=== PATIENT | male | born 1990 | race African-American/Black ===

== ENCOUNTER 2016-04-20 08:06 | Inpatient (IN) | payer OTHER ==
[~2016-04-20] VITALS: Ht 172.7 cm; Wt 95.3 kg
[~2016-04-20 08:06] MED LIST: ACETAMINOPHEN325 M1 PO; ACYCLOVIR 800800 MG PO; COMPAZINE5 M1 PO; ERYTHROMYCIN250 MG PO; ERYTHROMYCIN500 MG PO; HUMALOG100 UNIT/1; HUMALOG100 UNIT/1 SUBQ; HYDROCODON-ACE1 EAC7 PO; HYDROCODONE-AP1 EAC6 PO; IBUPROFEN 800800 M1 PO; KLOR-CON 1010 MEQ PO; LANTUS SC; LANTUS SUBQ; LIDOCAINE VISC100 ML MM; METOCLOPRAMID5 MG/ML PO; NEOSPORIN OINTM15 GM TP; NORCO 5-325 TA1 EACH PO; NOVOLOG100 UNIT/1 SUBQ; ONDANSETRON HCL4 M1 PO; ONDANSETRON HCL4 M2 PO; OXYCODON-ACETA1 EAC1 PO; PANTOPRAZOLE SO40 M1 PO; PEPCID PO; PHENERGAN 25 MG25 M1 PO; PHENERGAN12.5 M2 PO; PHENERGAN25 M1 RC; PHENERGAN50 MG RC; POTASSIUM20 PO; PREDNISONE50 MG PO; PROMETHAZI6.25 MG/2 PO; PROMETHAZINE HC25 M1 PO; PROMS25 WY RECTAL; PROTONIX 440 MG/VIA2 PO; PROTONIX40 M2 PO; REGLAN 10 MG TA10 MG; REGLAN 10 MG TA10 MG PO; ROBITUSSIN100 MG/53 PO; SLOW-MAG64 MG PO; TRAMADOL 50 MG50 MG PO; TRANSDERM-SCO1 PATC1; TRANSDERM-SCO1 PATC1 TD; ULTRAM 50MG TAB50 MG PO; VASELINE18 ML TP; XANAX 0.25 MG0.25 MG PO; ZOFRAN ODT4 MG PO; ZOFRAN4 MG DIS; ZOFRAN4 MG PO
[2016-04-20 08:07] VITALS: BP 138/85
[2016-04-20] MEDS ORDERED: REGLAN 10 MG TA10 MG PO (08:13)
[2016-04-20] MEDS ORDERED: PHENERGAN 25 MG25 M1 PO (08:14)
[2016-04-20 10:19] LABS: ABSOLUTE NEUTROPHILS 9.4 thou/uL (1.4-8.2); BASOPHILS 0.7 % (0.0-2.0); EOSINOPHILS 0.7 % (0.0-3.0); HEMATOCRIT 46.6 % (42.0-52.0); HEMOGLOBIN 15.6 gm/dL (14.0-18.0); MANUAL DIFF NO; MCH 30.8 pg (26.0-34.0); MCHC 33.5 % (28.0-37.0); MCV 91.9 fL (80.0-100.0); MONOCYTES 6.2 % (1.0-8.0); PLATELET COUNT 220 thou/uL (150-400); POLYS 76.4 % (36.0-66.0); RBC 5.07 mil/uL (4.50-6.00); RDW 13.3 % (10.5-14.5); WBC 12.3 thou/uL (4.0-11.0)
[2016-04-20 10:24] LABS: CALCIUM 9.9 mg/dL (8.5-10.1); CREATININE 1.6 mg/dL (0.6-1.3); POTASSIUM 3.8 mmol/L (3.5-5.1)
[2016-04-20 14:46] VITALS: BP 156/97
[2016-04-20 19:20] VITALS: BP 120/74
[2016-04-20 23:00] VITALS: BP 104/63
[2016-04-21 01:03] LABS: HEMATOCRIT 38.6 % (42.0-52.0); MCH 30.5 pg (26.0-34.0); MCHC 32.7 % (28.0-37.0); MCV 93.2 fL (80.0-100.0); RBC 4.14 mil/uL (4.50-6.00); RDW 13.4 % (10.5-14.5)
[2016-04-21 01:08] LABS: HEMOGLOBIN 12.6 gm/dL (14.0-18.0)
[2016-04-21 01:09] LABS: ANION GAP 11 mmol/L (7-16); BUN 19 mg/dL (7-18); CALCIUM 8.4 mg/dL (8.5-10.1); CHLORIDE 101 mmol/L (98-107); CO2 26 mmol/L (21-32); CREATININE 1.1 mg/dL (0.6-1.3); GLUCOSE 225 mg/dL (70-99); POTASSIUM 4.2 mmol/L (3.5-5.1)
[2016-04-21 01:16] LABS: ALBUMIN 3.2 g/dL (3.4-5.0); ALKALINE PHOSPHATASE 52 U/L (46-116); MAGNESIUM 1.6 mg/dL (1.8-2.4); SGOT < 5 U/L (15-37); SGPT 10 U/L (30-65); SODIUM 138 mmol/L (136-145); TOTAL BILIRUBIN 0.4 mg/dL (<0.1-1.0); TOTAL PROTEIN 6.6 g/dL (6.4-8.2)
[2016-04-21 04:30] VITALS: BP 108/65
[2016-04-21 07:08] VITALS: BP 105/63
[2016-04-21] MEDS ORDERED: PROTONIX 440 MG/VIA2 PO (12:40)
[2016-04-21] MEDS ORDERED: PROMETHAZINE/C118 ML PO (12:41)
[2016-04-21] MEDS ORDERED: PROMS25 WY RECTAL (12:41)
[2016-04-21 12:49] VITALS: BP 105/63
[2016-04-21 12:51] VITALS: BP 105/63
[2016-04-21 13:51] VITALS: BP 105/63
[2016-05-18] MEDS ORDERED: ZOFRAN ODT4 MG PO (12:43)
[2016-05-18] MEDS ORDERED: PROMS25 WY RECTAL (12:43)
[2016-05-18] MEDS ORDERED: PHENERGAN 25 MG25 M1 PO (12:43)
[2016-05-22] MEDS ORDERED: PHENERGAN 25 MG25 M1 PO (11:07)
[2016-06-11] MEDS ORDERED: PROMS25 WY RECTAL (11:21)
[2016-06-11] MEDS ORDERED: PHENERGAN 25 MG25 M1 PO (11:21)
[2016-06-16] MEDS ORDERED: PHENERGAN50 MG RC (09:09)
[2016-06-16] MEDS ORDERED: ZOFRAN ODT4 MG PO (09:09)
== END 2016-04-21 14:05 | disposition home or self-care (01) | DRG 74 ==
LOC: ER 08:06 → 5S 13:39 → EROBS 13:39 → 5S 14:45
PROVIDERS: Emergency Medicine; Hospitalist
DX: E10.43 Type 1 diabetes mellitus with diabetic autonomic (poly)neuropathy (principal); N17.9 Acute kidney failure, unspecified; K31.84 Gastroparesis; E86.0 Dehydration; I10 Essential (primary) hypertension; Z79.4 Long term (current) use of insulin; Z90.49 Acquired absence of other specified parts of digestive tract; Z82.49 Family history of ischemic heart disease and other diseases of the circulatory system; Z83.3 Family history of diabetes mellitus; Z87.891 Personal history of nicotine dependence
CPT/HCPCS: 10086

== ENCOUNTER 2016-04-23 05:40 | Observation (INO) | payer OTHER ==
[~2016-04-23] VITALS: Ht 172.7 cm; Wt 99.8 kg
--- NOTE | ~2016-04-23 | HC ---
[facility] [place] [address] CONSULTATION Name: OPAL FITZGERALD [place] Room #: 401-I ADM Pancho Joyce#: [id number] Admission: 04/23/16 Attend Phys: Celestino Sanchez MD Discharge: Date of : 88 Report #: [id number] THIS REPORT FOR: //name// CC: JILLIAN physician/PCP Celestino Sanchez DATE OF SERVICE: 04/23/2016 GASTROINTESTINAL CONSULTATION REASON FOR CONSULTATION: The patient is a 26-year-old male with long-standing history of diabetes and gastroparesis with recurrent symptoms of gastroparesis and vomiting. HISTORY OF PRESENT ILLNESS: The patient has had multiple admissions to this institution as well as other hospitals. He usually sees Dr. Nigel Calhoun for his gastroparesis. He has had a number of upper endoscopies in the past and the most recent was a couple of years ago by Dr. Calhoun. His last endoscopic procedure at this institution by Dr. Nigel Huynh in July of 2013 was done for nausea and vomiting. He was found to have moderate erosive esophagitis and retained gastric fluid, suggesting gastroparesis. The patient typically uses metoclopramide and Phenergan for management of his gastroparesis. He recently states that symptoms got worse and he developed multiple episodes of nonbloody emesis which lasted several hours. He presented to the emergency room and was admitted for further evaluation and treatment. He has not had any fever or chills. He has not had any problems with diarrhea. He has had some abdominal pain, but this has not been severe. He had a chest x-ray which did not reveal any acute processes. He does not have a CT, but his last CT of the abdomen was done in June of this past year and acute process was not identified. PAST MEDICAL HISTORY: Diabetic gastroparesis, recurrent nausea and vomiting. He has had shingles in the past. He has also had high blood pressure and bronchitis. It has been noted that he has used narcotics in the past, but does not has narcotic use at this time. ALLERGIES: TRAMADOL. PAST SURGICAL HISTORY: Cholecystectomy and appendectomy. MEDICATIONS: Lantus insulin 45 units subq at bedtime, Humalog 6 units before meals, metoclopramide 10 mg a.c. and at bedtime, pantoprazole 40 mg twice daily, promethazine 25 mg rectally every 4 hours as needed and promethazine syrup 5 mL every 6 hours as needed. [address] [address] CONSULTATION Name: OPAL FITZGERALD [place] Room #: 401-I [facility] Pancho Joyce#: [id number] Admission: 04/23/16 Attend Phys: Celestino Sanchez MD Discharge: Date of : 88 Report #: [id number] FAMILY HISTORY: No family history of colon cancer or ulcer disease. SOCIAL HISTORY: He does not smoke. He does not consume alcohol. He does not use illicit drugs. 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 REVIEW OF SYSTEMS: GENERAL: No change in weight, fever or chills. CENTRAL NERVOUS SYSTEMS: No focal weakness, numbness, loss of consciousness, seizures or stroke. ENT: No change in vision, hearing or soreness in mouth. PULMONARY: No cough, pneumonia or tuberculosis. CARDIOVASCULAR: No chest pain, chest tightness or palpitations. GASTROINTESTINAL: Nausea and vomiting. No hematemesis. He has not had diarrhea at this admission. Abdominal pain has not been severe this admission. GENITOURINARY: Without dysuria and pyuria. MUSCULOSKELETAL: No arthralgias or myalgias. SKIN: Without rashes. PSYCHIATRIC: No depression, anxiety or bipolar illness. ENDOCRINE: He does have diabetes. He is not aware of any other hormone problems. HEMATOLOGIC: No bleeding or bruising malignancies. PHYSICAL EXAMINATION: GENERAL: Well-developed and well-nourished -[place] male in no acute distress. VITAL SIGNS: Blood pressure 120/80, pulse of 99. HEENT: Anicteric. Pupils equal and round. Oropharynx clear. NECK: Supple. CHEST: Clear. HEART: Regular rate and rhythm. Normal S1 and normal S2. ABDOMEN: Normal bowel sounds. Soft and nontender, without hepatosplenomegaly or masses. RECTAL: Not done. EXTREMITIES: Without cyanosis, clubbing or edema. NEUROLOGIC: Oriented to person, place and time. Moves all 4 extremities well. LABORATORY DATA: White count 12.2 and it actually down from 14 on the fifth, hemoglobin 14.0 and platelet count of 223,000. Sodium and potassium were normal. Chloride 93, CO2 of 29, BUN of 10, creatinine of 1.1 and blood sugars 319. Lipase, LFTs were all normal. Albumin of 4.2. Lactic acid 1.4. Drug screen was positive for marijuana. I did ask the patient if he smoked marijuana and he said no. It is noted that the patient was recently admitted on 04/20 and discharged on the fifth for the same problem. [facility] [address] [place] [address] CONSULTATION Name: OPAL FITZGERALD [place] Room #: 401-I [facility] Pancho Joyce#: [id number] Admission: 04/23/16 Attend Phys: Celestino Sanchez MD Discharge: Date of : 88 Report #: [id number] ASSESSMENT: 1. Diabetic gastroparesis with worsening symptoms. 2. Insulin-dependent diabetes since age 6. 3. High blood pressure. 4. Bronchitis. 5. Prior use of narcotics. 6. Previous cholecystectomy. COMMENT: Difficult situation with the patient who continues to have recurrent nausea and vomiting. This is now his second admission within a week. I agree with pantoprazole and metoclopramide. We will add scopolamine patch. If he continued to have difficulty, consider repeat upper endoscopy, although in all likelihood it will likely not provide any additional details on what is already known. <ELECTRONICALLY SIGNED> By: Aman Zheng MD 04/24/16 1104 1635 0757 Aman Zheng MD /nt
[~2016-04-23 05:40] MED LIST changes: +PROMETHAZINE/C118 ML PO
[2016-04-23 05:43] VITALS: BP 132/91
[2016-04-23 06:14] LABS: CALCIUM 9.4 mg/dL (8.5-10.1); CREATININE 1.1 mg/dL (0.6-1.3); POTASSIUM 3.7 mmol/L (3.5-5.1)
[2016-04-23 06:16] LABS: BASOPHILS 0.2 % (0.0-2.0)
[2016-04-23 06:17] LABS: ABSOLUTE NEUTROPHILS 11.2 thou/uL (1.4-8.2); HEMATOCRIT 42.4 % (42.0-52.0); LYMPHOCYTES 5.7 % (24.0-44.0); MCH 30.9 pg (26.0-34.0); MCHC 33.1 % (28.0-37.0); MCV 93.3 fL (80.0-100.0); MONOCYTES 2.7 % (1.0-8.0); PLATELET COUNT 223 thou/uL (150-400); POLYS 91.4 % (36.0-66.0); RBC 4.55 mil/uL (4.50-6.00); RDW 13.3 % (10.5-14.5); WBC 12.2 thou/uL (4.0-11.0)
[2016-04-23 06:19] LABS: ALBUMIN 4.2 g/dL (3.4-5.0); DIRECT BILIRUBIN 0.2 mg/dL (<0.1-0.3); TOTAL BILIRUBIN 0.6 mg/dL (<0.1-1.0); TOTAL PROTEIN 8.1 g/dL (6.4-8.2)
[2016-04-23 06:23] LABS: MANUAL DIFF NO
[2016-04-23 08:28] LABS: URINE BILIRUBIN NEGATIVE (Negative); URINE BLOOD TRACE (Negative); URINE COLOR YELLOW; URINE GLUCOSE-RANDOM* 3+ (Negative); URINE KETONES 3+ (Negative); URINE LEUKOCYTES-REFLEX NEGATIVE (Negative); URINE PROTEIN (DIPSTICK) NEGATIVE (Negative); URINE SPECIFIC GRAVITY 1.015 (1.003-1.035); URINE UROBILINOGEN 0.2 E.U./dl (0.2-1.0)
[2016-04-23 08:39] LABS: AMP/METHAMP Negative (Negative); BARBITURATES Negative (Negative); BENZODIAZEPINES Negative (Negative); COCAINE Negative (Negative); METHADONE Negative (Negative); OPIATES Negative (Negative); PCP Negative (Negative); THC POSITIVE (Negative)
[2016-04-23 10:12] VITALS: BP 151/79
[2016-04-23 13:18] VITALS: BP 119/82
[2016-04-23 16:24] VITALS: BP 120/80
[2016-04-23 19:15] VITALS: BP 116/78
[2016-04-23 23:10] LABS: GLYCOHEMOGLOBIN (HGB A1C) 10.5 % (4.8-5.6)
[2016-04-24 07:45] VITALS: BP 108/70
[2016-04-24 07:50] VITALS: BP 110/74
[2016-04-24] MEDS ORDERED: REGLAN 10 MG TA10 MG PO (10:07)
[2016-04-24 16:24] VITALS: BP 110/74
[2016-04-24 18:36] VITALS: BP 110/74
[2016-05-18] MEDS ORDERED: ZOFRAN ODT4 MG PO (12:43)
[2016-05-18] MEDS ORDERED: PHENERGAN 25 MG25 M1 PO (12:43)
[2016-05-18] MEDS ORDERED: PROMS25 WY RECTAL (12:43)
[2016-05-22] MEDS ORDERED: PHENERGAN 25 MG25 M1 PO (11:07)
[2016-06-11] MEDS ORDERED: PHENERGAN 25 MG25 M1 PO (11:21)
[2016-06-11] MEDS ORDERED: PROMS25 WY RECTAL (11:21)
[2016-06-16] MEDS ORDERED: PHENERGAN50 MG RC (09:09)
[2016-06-16] MEDS ORDERED: ZOFRAN ODT4 MG PO (09:09)
== END 2016-04-24 16:45 | disposition home or self-care (01) ==
LOC: ER 05:40 → EROBS 07:55 → 4N 09:54
PROVIDERS: Emergency Medicine
DX: E11.43 Type 2 diabetes mellitus with diabetic autonomic (poly)neuropathy (principal); K31.84 Gastroparesis; I10 Essential (primary) hypertension; J40 Bronchitis, not specified as acute or chronic; F19.21 Other psychoactive substance dependence, in remission; Z90.49 Acquired absence of other specified parts of digestive tract; Z88.6 Allergy status to analgesic agent; Z82.49 Family history of ischemic heart disease and other diseases of the circulatory system; Z83.3 Family history of diabetes mellitus; Z87.891 Personal history of nicotine dependence; Z79.899 Other long term (current) drug therapy; Z98.890 Other specified postprocedural states

== ENCOUNTER 2016-07-16 06:38 | Inpatient (IN) | payer OTHER ==
[~2016-07-16] VITALS: Ht 175.3 cm; Wt 90.7 kg
--- NOTE | ~2016-07-16 | HC ---
[facility] [place] [address] CONSULTATION Name: OPAL FITZGERALD EPWORTH Room #: 408-P ADM IN M.R.#: [id number] Admission: 07/16/16 Attend Phys: Cezar Zaman MD Discharge: Date of : 88 Report #: [id number] THIS REPORT FOR: //name// CC: JILLIAN physician/PCP Cezar Zaman TYPE OF REPORT: GI consultation. REASON FOR CONSULTATION: Diabetic gastroparesis with recurrent nausea and vomiting. HISTORY OF PRESENT ILLNESS AND BACKGROUND: The patient is a 26-year-old male readmitted through the Emergency Room on 07/16/2016 with recurrent nausea and vomiting, presumed secondary to known diabetic gastroparesis. He has had multiple admissions with similar preceding history. He is somnolent and drifts to sleep with our discussion but nods head in response to questions. Chart reviewed. Apparently, he had recurrent onset of upper abdominal pain associated with recurrent nausea and vomiting prior to admission. With IV fluids and antiemetics in the Emergency Room, he only had mild improvement. Overnight symptoms have improved with less nausea and no ongoing vomiting at this time. He does not complain of abdominal pain at rest. PAST MEDICAL HISTORY: He does have insulin-dependent diabetes. He has undergone previous cholecystectomy and appendectomy. He does have hypertension. Review of previous records indicates that he had undergone upper endoscopy with Dr. Huynh, outside exterminator, in 2013 with finding of moderate erosive gastritis and retained material in the stomach at that time. HOME MEDICATIONS: Lantus insulin 45 units subcutaneously at bedtime, Humalog insulin 6 units before meals, metoclopramide 10 mg at bedtime and promethazine 25 mg p.o. q. 4 hours. ALLERGIES: TRAMADOL. SOCIAL HISTORY: Unable to be reviewed in detail from the patient, as he drifts off to sleep. FAMILY HISTORY: Unable to be reviewed in detail from the patient, as he drifts off to sleep. REVIEW OF SYSTEMS: Unable to be reviewed in detail from the patient, as he drifts off to sleep. PHYSICAL EXAMINATION: GENERAL: He appears somnolent, and in no acute distress at rest, afebrile. VITAL SIGNS: Blood pressure 120/78, pulse 107. [address] [address] CONSULTATION Name: OPAL FITZGERALD EPWORTH Room #: [facility] IN M.R.#: [id number] Admission: 07/16/16 Attend Phys: Cezar Zaman MD Discharge: Date of : 88 Report #: [id number] SKIN: Warm and dry. NECK: Supple, without lymphadenopathy. HEART: Rate and rhythm regular. LUNGS: Clear to auscultation. ABDOMEN: Soft, mildly obese with no obvious focal tenderness to palpation or palpable mass. LABORATORY DATA: On 07/16/2016: The white blood cell count 18.3; hemoglobin 14.0 and platelet count 241,000. Repeat CBC this morning includes a white blood cell count 13.1; hemoglobin 14.1 and platelet count 228,000. Basic metabolic profile on 07/16/2016 included glucose 271, BUN 13, creatinine 0.9, was slightly elevated anion gap of 17. IMPRESSION: 1. Recurrent upper abdominal pain associated with nausea and vomiting secondary to known diabetic gastroparesis. 2. Insulin-dependent diabetes mellitus. RECOMMENDATIONS: 1. Continue pantoprazole 40 mg b.i.d. 2. Continue Reglan 10 mg p.o. 30 minutes before each meal and at bedtime. 3. He has had improvement with additional medications prescribed for nausea as needed including Zofran 4 mg IV q. 4 hours p.r.n. and Compazine 10 mg IV q. 6 hours p.r.n. By: 1236 2228 Beau Murry MD /nt
[2016-07-16 06:42] VITALS: BP 152/97
[2016-07-16] MEDS ORDERED: REGLAN 10 MG TA10 MG PO (07:03)
[2016-07-16] MEDS ORDERED: PHENERGAN 25 MG25 M1 PO ×2 (07:05→08:25)
[2016-07-16 07:35] LABS: ABSOLUTE NEUTROPHILS 16.6 thou/uL (1.4-8.2); BASOPHILS 0.8 % (0.0-2.0); HEMATOCRIT 41.5 % (42.0-52.0); LYMPHOCYTES 6.5 % (24.0-44.0); MCH 31.1 pg (26.0-34.0); MCHC 33.7 g/dL (28.0-37.0); MCV 92.4 fL (80.0-100.0); MONOCYTES 1.9 % (1.0-8.0); PLATELET COUNT 241 thou/uL (150-400); POLYS 90.8 % (36.0-66.0); RBC 4.49 mil/uL (4.50-6.00); RDW 13.9 % (10.5-14.5); WBC 18.3 thou/uL (4.0-11.0)
[2016-07-16 07:37] LABS: MANUAL DIFF NO
[2016-07-16 07:43] LABS: CALCIUM 9.9 mg/dL (8.5-10.1); CREATININE 0.9 mg/dL (0.6-1.3); POTASSIUM 3.8 mmol/L (3.5-5.1)
[2016-07-16 07:48] LABS: ALBUMIN 4.4 g/dL (3.4-5.0); DIRECT BILIRUBIN 0.1 mg/dL (<0.1-0.3); TOTAL BILIRUBIN 0.6 mg/dL (<0.1-1.0); TOTAL PROTEIN 8.3 g/dL (6.4-8.2)
[2016-07-16] MEDS ORDERED: PROMS25 WY RECTAL (08:25)
[2016-07-16 09:08] LABS: ABG SAMPLE TYPE ARTERIAL; BE(vivo) -1.2 mmol/L (-2 to +3); HCO3 22.7 mmol/L (22.0-26.0); LACTATE 1.16 mmol/L (0.5-2.0); O2(CT) 18.6 mL/dL (15.0-23.0); O2Hb 94.3 % (92.0-98.0); PCO2 35.7 mmHg (35.0-45.0); PO2 81.9 mmHg (80.0-100.0); STICK SITE R.RADIAL; pH 7.422 (7.360-7.450); sO2 96.3 % (92.0-98.0); tCO2 23.8 mmol/L (24.0-30.0)
[2016-07-16 09:59] VITALS: BP 128/78
[2016-07-16 10:30] VITALS: BP 124/76
[2016-07-16 16:31] VITALS: BP 139/95
[2016-07-16 20:00] VITALS: BP 107/69
[2016-07-16 23:59] VITALS: BP 107/70
[2016-07-17 04:30] LABS: CALCIUM 9.1 mg/dL (8.5-10.1); POTASSIUM 3.5 mmol/L (3.5-5.1)
[2016-07-17 04:46] LABS: HEMATOCRIT 42.6 % (42.0-52.0); HEMOGLOBIN 14.1 gm/dL (14.0-18.0); MCHC 33.1 g/dL (28.0-37.0); MCV 93.6 fL (80.0-100.0); RBC 4.56 mil/uL (4.50-6.00); RDW 14.2 % (10.5-14.5); WBC 13.1 thou/uL (4.0-11.0)
[2016-07-17 08:18] VITALS: BP 120/78
[2016-07-17 16:20] VITALS: BP 148/99
[2016-07-17 20:00] VITALS: BP 111/68
[2016-07-18 04:00] VITALS: BP 140/92
[2016-07-18 06:02] LABS: HEMOGLOBIN 13.1 gm/dL (14.0-18.0); MCHC 33.5 g/dL (28.0-37.0); MCV 92.6 fL (80.0-100.0); RBC 4.22 mil/uL (4.50-6.00); WBC 10.8 thou/uL (4.0-11.0)
[2016-07-18 06:20] LABS: ALBUMIN 3.2 g/dL (3.4-5.0); CALCIUM 8.5 mg/dL (8.5-10.1); PHOSPHORUS 2.9 mg/dL (2.5-4.9); POTASSIUM 3.6 mmol/L (3.5-5.1)
[2016-07-18 08:37] VITALS: BP 124/78
== END 2016-07-18 12:15 | disposition left against medical advice (07) | DRG 74 ==
LOC: ER 06:38 → EROBS 08:44 → 4N 08:44
PROVIDERS: Emergency Medicine; Hospitalist
DX: E11.43 Type 2 diabetes mellitus with diabetic autonomic (poly)neuropathy (principal); K31.84 Gastroparesis; D72.829 Elevated white blood cell count, unspecified; I10 Essential (primary) hypertension; E86.9 Volume depletion, unspecified; Z53.21 Procedure and treatment not carried out due to patient leaving prior to being seen by health care provider; Z79.4 Long term (current) use of insulin; Z88.6 Allergy status to analgesic agent; Z90.49 Acquired absence of other specified parts of digestive tract; Z82.49 Family history of ischemic heart disease and other diseases of the circulatory system; Z83.3 Family history of diabetes mellitus; Z79.899 Other long term (current) drug therapy; Z87.81 Personal history of (healed) traumatic fracture; Z87.891 Personal history of nicotine dependence
CPT/HCPCS: 10091

== ENCOUNTER 2016-08-23 13:59 | Inpatient (IN) | payer OTHER ==
[~2016-08-23] VITALS: Ht 172.7 cm; Wt 104.3 kg
--- NOTE | ~2016-08-23 | H ---
[facility] [place] [address] HISTORY AND PHYSICAL Name: OPAL FITZGERALD [place] Room #: 424-P ADM IN M.R.#: [id number] Admission: 08/23/16 Attend Phys: Hakeem Castellanos MD Discharge: Date of : 89 Report #: [id number] THIS REPORT FOR: //name// CC: JILLIAN physician/PCP Hakeem Castellanos DATE OF SERVICE: 08/23/2016 CHIEF COMPLAINT: Nausea, vomiting, abdominal pain. HISTORY OF PRESENT ILLNESS: The patient is a 26-year-old male with history of gastroparesis, history of cyclic vomiting, type 1 diabetes, hypertension with multiple hospitalizations here for nausea and vomiting secondary to diabetic gastroparesis, presented to the emergency room complaining of nausea, vomiting. Symptoms have been ongoing over the last few days. He has had generalized abdominal pain. No history of any diarrhea, no fever or chills. The patient has been taking Reglan and Phenergan at home without much relief. The patient is kind of sleepy at present. He does wake up and he does answer questions. His last EGD apparently was on August 08. According to the previous chart, it showed moderate esophagitis and was retained gastric fluid. I do not see gastric emptying study in the system. PAST MEDICAL HISTORY: Significant for type 1 diabetes, diabetic gastroparesis, hypertension. PAST SURGICAL HISTORY: Significant for cholecystectomy and appendectomy. ALLERGIES: Allergic to TRAMADOL, causes hives. HOME MEDICATIONS: Include promethazine, Zofran, Protonix, Lantus insulin, Humalog insulin, and Reglan. SOCIAL HISTORY: He lives at home with his mother. Denies alcohol abuse or any drug abuse. He does have previous history of smoking marijuana. FAMILY HISTORY: Mother and grandmother had diabetes. REVIEW OF SYSTEMS: CONSTITUTIONAL: limited because of his lethargy, but does wake up and answer questions. HEENT: He denies any headache. No visual disturbance. Denies any sore throat. CARDIOVASCULAR: No chest pain, dizziness, palpitations. RESPIRATORY: No cough or expectoration. GASTROINTESTINAL: As above. GENITOURINARY: No dysuria, hematuria. [facility] [address] [place] [address] HISTORY AND PHYSICAL Name: OPAL FITZGERALD DUL[place] Room #: 424-P [facility] IN M.R.#: [id number] Admission: 08/23/16 Attend Phys: Hakeem Castellanos MD Discharge: Date of : 89 Report #: [id number] NEUROLOGIC: Denies any focal numbness or weakness of the extremities. PSYCHIATRIC: No anxiety or depression. A 12-point review of system is negative other than the positive and negative dictated in the history of present illness and review of system. PHYSICAL EXAMINATION: VITAL SIGNS: Blood pressure 162/97, heart rate of 110 per minute, afebrile. GENERAL: The patient is lethargic, but he does wake up and answer questions and he goes back to sleep. EYES: Pupils equal, reactive to light. THROAT: He has a dry oral mucosa. NECK: Supple, no JVD, no bruit, no lymphadenopathy. CARDIOVASCULAR SYSTEM: S1, S2, negative S3, no murmur. CHEST: Bilateral air entry present. Clear on auscultation. ABDOMEN: Soft, bowel sounds present, no mass, no organomegaly. There is no guarding, no rebound tenderness. There is mild diffuse tenderness noted. PERIPHERY: No pedal edema. No calf tenderness. Dorsalis pedis 1+. NEUROLOGICAL: He is able to move all 4 extremities. LABORATORY DATA: Reviewed. His blood glucose is 339, BUN and creatinine 17 and 1.0, anion gap is 16 with a bicarbonate of 23, sodium is 138. AST and ALT are within normal limit. Lipase is 61. Lactic acid is 2.4. White count is 20.3 with normal hemoglobin, hematocrit and platelets. Differential on that showed 89% segs. His urine showed 3+ ketones, 1+ blood. Chest x-ray done earlier down in the emergency room showed no acute cardiopulmonary process. ASSESSMENT AND PLAN: 1. Nausea and vomiting secondary to diabetic gastroparesis. The patient will be kept on n.p.o. We will continue with IV hydration. I have ordered Reglan around the clock and Phenergan p.r.n. The patient has been on a combination of Phenergan and Reglan in the past. We will also start him on PPI. 2. We will consult needle valve operator for possible endoscopy. The patient has had multiple admissions in this year, once a month. 3. Diabetes, uncontrolled. We will check an A1c level. He is presently placed on Accu-Cheks with sliding scale insulin. 4. Ketosis, most likely secondary to poor p.o. intake. His anion gap and his bicarb looks normal. 5. Deep venous thrombosis prophylaxis. He will be placed on SCDs on the leg for deep venous thrombosis prophylaxis. 6. Elevated blood pressure, ordered p.r.n. hydralazine. 7. Leukocytosis, most likely stress related. We will repeat his labs in the morning. We will consider a CT of his abdomen and pelvis if symptoms of his [facility] [address] [place] [address] HISTORY AND PHYSICAL Name: OPAL FITZGERALD VIVIENNE Room #: 424-P ADM IN M.R.#: [id number] Admission: 08/23/16 Attend Phys: Hakeem Castellanos MD Discharge: Date of : 89 Report #: [id number] white count persists. Treatment plan has been explained to the patient in detail. <ELECTRONICALLY SIGNED> By: Hakeem Castellanos MD 08/24/16 1134 1930 04 Hakeem Castellanos MD /nt
--- NOTE | ~2016-08-23 | P ---
[facility] [place] [address] PROCEDURE REPORT Name: OPAL FITZGERALD [place] Room #: 424-P ADM IN M.R.#: [id number] Admission: 08/23/16 Attend Phys: Susan Castellanos MD Discharge: Date of : 89 Report #: [id number] THIS REPORT FOR: //name// CC: JILLIAN physician/PCP SUSAN Castellanos DATE OF SERVICE: 08/25/[address] Castellanos. INDICATION FOR PROCEDURE: This patient has a history of gastroparesis. He presented with nausea, vomiting, epigastric pain, and left upper quadrant pain of undetermined etiology. Informed consent for this procedure was obtained prior to the administration of any medication. The risks of the procedure which include bleeding, perforation, infection, complications of sedation and the possibility I could miss something have been explained to the patient and he has indicated his consent by signing. Propofol was slowly titrated before and during this procedure for patient comfort by the anesthesia service. The [employer] upper videoscope was introduced through the upper esophageal sphincter and advanced under direct visualization to the descending duodenum. Findings are noted on withdrawal of the scope. The duodenal mucosa appears normal throughout its entirety. Pylorus, normal mucosa. Antrum, erythematous mucosa. Body, erythematous mucosa. Cardia and fundus, erythematous mucosa. Retroflex view reveals a small hiatal hernia. The scope was withdrawn into the esophagus. The Z line is irregular and slightly proximal to the top of the gastric folds indicating that he might have some Guzman's ectopic mucosa here. There is a linear ulcer that is 5 mm x 10 mm in size approximately in the distal esophagus, probably from gastroesophageal reflux caused or worsened by his gastroparesis. Above this ulceration, the esophageal mucosa appears normal. The scope was withdrawn. The patient went to the recovery area in stable condition. He tolerated the procedure well. IMPRESSION: 1. Diffuse mild gastritis, biopsies obtained for histopathology times 2 to evaluate for Helicobacter pylori infection. 2. Small hiatal hernia. 3. Distal esophageal ulcer as described above. Recommendations are for him to be on proton pump inhibitors twice a day for 12 weeks. He needs to control his blood sugar tightly. Continue taking the Reglan for his gastroparesis. He should have a repeat EGD in 12 weeks to be sure that the distal esophageal ulcer has healed completely. [address] [address] PROCEDURE REPORT Name: AMILCAROPAL [place] Room #: 424-P [facility] IN M.R.#: [id number] Admission: 08/23/16 Attend Phys: Susan Castellanos MD Discharge: Date of : 88 Report #: [id number] Thank you very much once again for allowing me to participate in his care, Dr. Castellanos. By: 1147 2351 Yumiko Tejeda, DO /nt
--- NOTE | ~2016-08-23 | S ---
[facility] [place] [address] SURGICAL PATH RPT PROCEDURE Name: LUIS MIGUEL HUNTER [place] Room #: 424-P DIS IN M.R.#: [id number] Admission: 08/23/16 Date of : 88 Discharge: 08/26/16 Report #: [id number] Path Case #: [id number] PATHOLOGY REPORT COLLECTION DATE: 08/25/2016 RECEIVED DATE: 08/25/2016 SUBMITTING PHYS: Dr. Yumiko Tejeda OTHER PHYS: Dr. Hakeem Castellanos SPECIMEN(S) RECEIVED: A.Antrum * * * * * * * * * * * * FINAL DIAGNOSIS: A. Gastric mucosa, "antrum", endoscopic biopsy: - Mild reactive gastropathy. - Negative for intestinal metaplasia or atrophy. - Negative for Helicobacter pylori. COMMENT: Helicobacter pylori immunohistochemical stain performed on block A1- negative. (IUV; 08/29/16) PATHOLOGIST: Sasha Salazar M.D. REPORT ELECTRONICALLY SIGNED BY: Sasha Salazar M.D. DATE/TIME: 08/29/2016 17:39 * * * * * * * * * * * * GROSS PATHOLOGY: Received in formalin labeled "Luis Miguel Hunter, antrum biopsy," are 2 segments of gregory soft tissue measuring 0.7 x 0.4 x 0.2 cm in aggregate dimensions and ranging from 0.3 to 0.7 cm in maximum dimension. The specimen is submitted entirely in cassette A1. (KAH; 08/27/2016) CLINICAL HISTORY: Pre-op diagnosis: Nausea, vomiting Post-op diagnosis: Gastritis, hiatal hernia INITIAL CPT CODE(S): A; 08399, 41351 [facility] [address], [place] [address] [facility] [address] [place] [address] SURGICAL PATH RPT PROCEDURE Name: LUIS MIGUEL H[place]TER [place]ENNE Room #: 424-P [facility] IN M.R.#: [id number] Admission: 08/23/16 Date of : 88 Discharge: 08/26/16 Report #: [id number] Path Case #: [id number] Technical [facility] at [address] [place] [address], [facility] [address] [address]. [facility] [address] [place] [address] PHONE: [phone] DIRECTOR: Marcus Aponte M.D. * * * END OF REPORT * * *
[~2016-08-23 13:59] MED LIST changes: +MOBIC7.5 MG PO; +ROBAXIN 750 MG750 M1 PO
[2016-08-23 14:00] VITALS: BP 148/82
[2016-08-23 14:23] LABS: HEMATOCRIT 43.8 % (42.0-52.0); HEMOGLOBIN 14.5 gm/dL (14.0-18.0); MANUAL DIFF YES; MCH 30.5 pg (26.0-34.0); MCHC 33.1 g/dL (28.0-37.0); MCV 92.2 fL (80.0-100.0); PLATELET COUNT 243 thou/uL (150-400); RBC 4.75 mil/uL (4.50-6.00); RDW 14.4 % (10.5-14.5); WBC 20.3 thou/uL (4.0-11.0)
[2016-08-23 14:43] LABS: ABSOLUTE NEUTROPHILS 18.5 thou/uL (1.4-8.2); TOTAL CELL COUNT 100
[2016-08-23 17:32] LABS: CALCIUM 10.1 mg/dL (8.5-10.1); CREATININE 1.1 mg/dL (0.7-1.3); POTASSIUM 4.5 mmol/L (3.5-5.1)
[2016-08-23 17:37] LABS: ALBUMIN 4.9 g/dL (3.4-5.0); TOTAL BILIRUBIN 0.5 mg/dL (<0.1-1.0); TOTAL PROTEIN 9.5 g/dL (6.4-8.2)
[2016-08-23 18:39] LABS: URINE BILIRUBIN NEGATIVE (Negative); URINE BLOOD 1+ (Negative); URINE COLOR YELLOW; URINE GLUCOSE-RANDOM* 3+ (Negative); URINE KETONES 3+ (Negative); URINE NITRITE NEGATIVE (Negative); URINE PROTEIN (DIPSTICK) NEGATIVE (Negative); URINE UROBILINOGEN 0.2 E.U./dl (0.2-1.0)
[2016-08-23 18:46] LABS: BACTERIA 1-9 Few /HPF (None Seen); SQUAMOUS None Seen /LPF (0-3); URINE RBC 0-2 Rare /HPF (0-2); URINE WBC None Seen /HPF (0-5)
[2016-08-23 18:47] LABS: CASTS None Seen /LPF (None Seen); CRYSTALS None Seen /LPF (None Seen)
[2016-08-23 19:00] VITALS: BP 155/99
[2016-08-24 00:13] LABS: HEMATOCRIT 42.7 % (42.0-52.0); HEMOGLOBIN 14.1 gm/dL (14.0-18.0)
[2016-08-24 06:00] VITALS: BP 111/63
[2016-08-24 06:27] LABS: ABSOLUTE NEUTROPHILS 15.5 thou/uL (1.4-8.2); BASOPHILS 0.4 % (0.0-2.0); EOSINOPHILS 0.1 % (0.0-3.0); HEMATOCRIT 40.9 % (42.0-52.0); HEMOGLOBIN 13.4 gm/dL (14.0-18.0); LYMPHOCYTES 10.8 % (24.0-44.0); MCH 30.6 pg (26.0-34.0); MCHC 32.9 g/dL (28.0-37.0); MONOCYTES 7.5 % (1.0-8.0); PLATELET COUNT 210 thou/uL (150-400); POLYS 81.2 % (36.0-66.0); RDW 13.9 % (10.5-14.5); WBC 19.1 thou/uL (4.0-11.0)
[2016-08-24 06:32] LABS: MANUAL DIFF NO
[2016-08-24 06:55] LABS: AMP/METHAMP Negative (Negative); BARBITURATES Negative (Negative); BENZODIAZEPINES Negative (Negative); COCAINE Negative (Negative); METHADONE Negative (Negative); OPIATES POSITIVE (Negative); PCP Negative (Negative); THC POSITIVE (Negative)
[2016-08-24 07:01] LABS: CALCIUM 9.1 mg/dL (8.5-10.1); CREATININE 1.1 mg/dL (0.7-1.3); MAGNESIUM 1.9 mg/dL (1.8-2.4); POTASSIUM 4.2 mmol/L (3.5-5.1); TOTAL BILIRUBIN 0.6 mg/dL (<0.1-1.0); TOTAL PROTEIN 7.8 g/dL (6.4-8.2)
[2016-08-24 12:27] VITALS: BP 126/82
[2016-08-24 16:23] VITALS: BP 128/75
[2016-08-25] VITALS (7 sets, daily range): BP systolic 122–172; BP diastolic 68–107
[2016-08-25 06:18] LABS: ABSOLUTE NEUTROPHILS 11.1 thou/uL (1.4-8.2); EOSINOPHILS 0.1 % (0.0-3.0); HEMATOCRIT 42.9 % (42.0-52.0); HEMOGLOBIN 14.1 gm/dL (14.0-18.0); LYMPHOCYTES 10.5 % (24.0-44.0); MCH 30.6 pg (26.0-34.0); MCHC 32.9 g/dL (28.0-37.0); MCV 92.8 fL (80.0-100.0); MONOCYTES 5.3 % (1.0-8.0); PLATELET COUNT 211 thou/uL (150-400); POLYS 83.1 % (36.0-66.0); RBC 4.62 mil/uL (4.50-6.00); RDW 13.5 % (10.5-14.5); WBC 13.3 thou/uL (4.0-11.0)
[2016-08-25 06:21] LABS: MANUAL DIFF NO
[2016-08-25 06:26] LABS: MAGNESIUM 1.5 mg/dL (1.8-2.4); POTASSIUM 3.9 mmol/L (3.5-5.1)
[2016-08-26 06:23] LABS: HEMATOCRIT 38.7 % (42.0-52.0); HEMOGLOBIN 13.3 gm/dL (14.0-18.0); MCH 31.5 pg (26.0-34.0); MCHC 34.3 g/dL (28.0-37.0); MCV 91.9 fL (80.0-100.0); RBC 4.21 mil/uL (4.50-6.00); RDW 13.5 % (10.5-14.5); WBC 9.1 thou/uL (4.0-11.0)
[2016-08-26 06:29] LABS: CALCIUM 8.2 mg/dL (8.5-10.1); CREATININE 0.8 mg/dL (0.7-1.3); POTASSIUM 3.6 mmol/L (3.5-5.1)
[2016-08-26 08:12] VITALS: BP 126/84
[2016-08-26] MEDS ORDERED: REMERON15 MG PO (12:01)
[2016-08-26] MEDS ORDERED: CARAFATE 11 GM/10 M1 PO (12:01)
[2016-08-26 12:04] VITALS: BP 126/84
== END 2016-08-26 12:30 | disposition home or self-care (01) | DRG 74 ==
LOC: ER 13:59 → EROBS 18:29 → 4E 18:29
PROVIDERS: Family Medicine; Internal Medicine; Nurse Practitioner; Physician Assistant
PROC: 0DB68ZX Excision of Stomach, Via Natural or Artificial Opening Endoscopic, Diagnostic (ICD-10-PCS; principal; 2016-08-25)
DX: E10.43 Type 1 diabetes mellitus with diabetic autonomic (poly)neuropathy (principal); K22.10 Ulcer of esophagus without bleeding; K31.84 Gastroparesis; K44.9 Diaphragmatic hernia without obstruction or gangrene; K29.70 Gastritis, unspecified, without bleeding; E10.65 Type 1 diabetes mellitus with hyperglycemia; F32.9 Major depressive disorder, single episode, unspecified; E88.89 Other specified metabolic disorders; F11.90 Opioid use, unspecified, uncomplicated; D72.829 Elevated white blood cell count, unspecified; I10 Essential (primary) hypertension; K21.9 Gastro-esophageal reflux disease without esophagitis; F12.10 Cannabis abuse, uncomplicated; R19.7 Diarrhea, unspecified; Z82.49 Family history of ischemic heart disease and other diseases of the circulatory system; Z90.49 Acquired absence of other specified parts of digestive tract; Z79.4 Long term (current) use of insulin; Z87.828 Personal history of other (healed) physical injury and trauma; Z88.6 Allergy status to analgesic agent; Z79.899 Other long term (current) drug therapy; Z83.3 Family history of diabetes mellitus; Z87.81 Personal history of (healed) traumatic fracture; Z87.891 Personal history of nicotine dependence
CPT/HCPCS: 10084; 62110; 70005

== ENCOUNTER 2016-09-23 18:14 | Inpatient (IN) | payer OTHER ==
[~2016-09-23] VITALS: Ht 172.7 cm; Wt 89.8 kg
--- NOTE | ~2016-09-23 | EKG ---
[address] [place] [address] ELECTROCARDIOGRAM REPORT Name: AMILCARKENDRA MCGRAWCY DUNDEE Room #: 453-P [facility] IN M.R.#: [id number] Admission: 09/23/16 Attend Phys: Matias Vega MD Discharge: 09/25/16 Date of : 88 Report #: [id number] THIS REPORT FOR: //name// [facility] ED Test Date: 2016-09-23 Test Time: 18:41:23 Pat Name: OPAL FITZGERALD Department: Room: [facility] Gender: M Well Tester: Juan ESTEVEZ : 1990 Requested By: Aliyah Rice Order Number: [id number] MD: Eleazar Maki Measurements Intervals [place] Rate: 120 P: 75 OR: 141 QRS: 89 QRSD: 92 T: -5 QT: 322 QTc: 455 Interpretive Statements Sinus tachycardia Right natarajan axis Compared to ECG 06/17/2016 20:54:53 no significant change was found Electronically Signed On 09-25-2016 15:47:07 CDT by Eleazar Maki [email or web address] <ELECTRONICALLY SIGNED> By: Eleazar Maki MD, [facility] 09/25/16 1547 184 184 Eleazar Maki MD, [facility] /EPI
[~2016-09-23 18:14] MED LIST changes: +CARAFATE 11 GM/10 M1 PO; +REMERON15 MG PO
[2016-09-23 18:15] VITALS: BP 147/89
[2016-09-23 18:32] LABS: HEMATOCRIT 44.9 % (42.0-52.0); HEMOGLOBIN 15.4 gm/dL (14.0-18.0); MANUAL DIFF YES; MCH 31.1 pg (26.0-34.0); MCHC 34.2 g/dL (28.0-37.0); MCV 90.9 fL (80.0-100.0); PLATELET COUNT 225 thou/uL (150-400); RBC 4.94 mil/uL (4.50-6.00); RDW 13.5 % (10.5-14.5); WBC 21.2 thou/uL (4.0-11.0)
[2016-09-23 18:45] LABS: URINE BLOOD 1+ (Negative); URINE COLOR YELLOW; URINE GLUCOSE-RANDOM* 2+ (Negative); URINE KETONES 3+ (Negative); URINE NITRITE NEGATIVE (Negative); URINE PROTEIN (DIPSTICK) 2+ (Negative); URINE SPECIFIC GRAVITY >= 1.030 (1.003-1.035); URINE UROBILINOGEN 0.2 E.U./dl (0.2-1.0)
[2016-09-23 18:47] LABS: ANION GAP 19 mmol/L (7-16); BUN 25 mg/dL (7-18); CALCIUM 10.3 mg/dL (8.5-10.1); CHLORIDE 94 mmol/L (98-107); CO2 24 mmol/L (21-32); CREATININE 1.5 mg/dL (0.7-1.3); GLUCOSE 306 mg/dL (74-106); POTASSIUM 3.4 mmol/L (3.5-5.1); SODIUM 137 mmol/L (136-145)
[2016-09-23 18:47] LABS: URINE BILIRUBIN NEGATIVE (Negative)
[2016-09-23 18:52] LABS: BACTERIA 1-9 Few /HPF (None Seen); CRYSTALS None Seen /LPF (None Seen); HYALINE CASTS 0-3 Few /LPF (None Seen); SQUAMOUS None Seen /LPF (0-3); URINE RBC 0-2 Rare /HPF (0-2); URINE WBC 0-5 Rare /HPF (0-5)
[2016-09-23 18:53] LABS: ALBUMIN 4.7 g/dL (3.4-5.0); ALKALINE PHOSPHATASE 84 U/L (46-116); SGOT 17 U/L (15-37); SGPT 25 U/L (30-65); TOTAL BILIRUBIN 0.7 mg/dL (<0.1-1.0); TOTAL PROTEIN 9.3 g/dL (6.4-8.2); TROPONIN-I < 0.04 ng/mL (<0.04-0.07)
[2016-09-23 18:53] LABS: AMP/METHAMP Negative (Negative); BARBITURATES Negative (Negative); BENZODIAZEPINES POSITIVE (Negative); COCAINE Negative (Negative); METHADONE Negative (Negative); OPIATES POSITIVE (Negative); PCP Negative (Negative); THC POSITIVE (Negative)
[2016-09-23 18:59] LABS: ABSOLUTE NEUTROPHILS 16.7 thou/uL (1.4-8.2); TOTAL CELL COUNT 100
[2016-09-23 19:55] VITALS: BP 131/81
[2016-09-23 20:43] VITALS: BP 119/70
[2016-09-23 23:55] VITALS: BP 128/82
[2016-09-24] VITALS (7 sets, daily range): BP systolic 101–158; BP diastolic 51–117
[2016-09-24 05:19] LABS: HEMATOCRIT 41.2 % (42.0-52.0); HEMOGLOBIN 13.6 gm/dL (14.0-18.0); MCH 30.6 pg (26.0-34.0); MCHC 33.1 g/dL (28.0-37.0); MCV 92.6 fL (80.0-100.0); RBC 4.45 mil/uL (4.50-6.00); RDW 13.6 % (10.5-14.5); WBC 19.2 thou/uL (4.0-11.0)
[2016-09-24 05:35] LABS: CALCIUM 8.9 mg/dL (8.5-10.1); CREATININE 1.1 mg/dL (0.7-1.3); POTASSIUM 4.1 mmol/L (3.5-5.1)
[2016-09-25 03:21] VITALS: BP 94/50
[2016-09-25 04:14] LABS: ABSOLUTE NEUTROPHILS 10.6 thou/uL (1.4-8.2); BASOPHILS 0.2 % (0.0-2.0); HEMATOCRIT 39.9 % (42.0-52.0); HEMOGLOBIN 13.3 gm/dL (14.0-18.0); LYMPHOCYTES 15.4 % (24.0-44.0); MCH 30.8 pg (26.0-34.0); MCHC 33.2 g/dL (28.0-37.0); MCV 92.8 fL (80.0-100.0); MONOCYTES 5.3 % (1.0-8.0); PLATELET COUNT 182 thou/uL (150-400); POLYS 79.1 % (36.0-66.0); RDW 13.4 % (10.5-14.5); WBC 13.4 thou/uL (4.0-11.0)
[2016-09-25 04:17] LABS: MANUAL DIFF NO
[2016-09-25 04:28] LABS: CALCIUM 8.7 mg/dL (8.5-10.1); CREATININE 0.9 mg/dL (0.7-1.3); POTASSIUM 4.1 mmol/L (3.5-5.1)
[2016-09-25 08:56] VITALS: BP 122/76
[2016-09-25 11:44] VITALS: BP 116/75
[2016-09-25 13:46] VITALS: BP 116/75
== END 2016-09-25 15:43 | disposition home or self-care (01) | DRG 74 ==
LOC: ER 18:14 → EROBS 19:30 → 4W 19:55
PROVIDERS: Internal Medicine Endocrinology, Diabetes & Metabolism; Nurse Practitioner Acute Care; Nurse Practitioner Family
DX: E10.43 Type 1 diabetes mellitus with diabetic autonomic (poly)neuropathy (principal); N17.9 Acute kidney failure, unspecified; E10.65 Type 1 diabetes mellitus with hyperglycemia; K31.84 Gastroparesis; I10 Essential (primary) hypertension; D72.829 Elevated white blood cell count, unspecified; F12.90 Cannabis use, unspecified, uncomplicated; Z79.4 Long term (current) use of insulin; Z79.899 Other long term (current) drug therapy; Z88.6 Allergy status to analgesic agent; Z90.49 Acquired absence of other specified parts of digestive tract; Z87.81 Personal history of (healed) traumatic fracture; Z87.891 Personal history of nicotine dependence; Z82.49 Family history of ischemic heart disease and other diseases of the circulatory system; Z83.3 Family history of diabetes mellitus
CPT/HCPCS: 10045

== ENCOUNTER 2016-10-22 19:25 | Observation (INO) | payer OTHER ==
[~2016-10-22] VITALS: Ht 172.7 cm; Wt 104.3 kg
--- NOTE | ~2016-10-22 | EKG ---
[address] [place] [address] ELECTROCARDIOGRAM REPORT Name: AMILCAROPAL [place] Room #: 538-P [facility] M.R.#: [id number] Admission: 10/22/16 Attend Phys: Primitivo Mcpherson Discharge: Date of : 88 Report #: [id number] THIS REPORT FOR: //name// [facility] ED Test Date: 2016-10-22 Test Time: 19:45:03 Pat Name: OPAL FITZGERALD Department: Room: 538 Gender: M Manager Oracle: VALORIE : 1990 Requested By: Aliyah Rice Order Number: [id number] MD: Eleazar Maki Measurements Intervals [place] Rate: 133 P: 86 AR: 122 QRS: 103 QRSD: 91 T: -19 QT: 307 QTc: 457 Interpretive Statements Sinus tachycardia right axis deviation Borderline repolarization abnormality Compared to ECG 09/23/2016 18:41:23 no significant change was found Electronically Signed On 10-24-2016 9:17:23 CDT by Eleazar Maki [email or web address] <ELECTRONICALLY SIGNED> By: Eleazar Maki MD, [facility] [id number] Eleazar Maki MD, [facility] /EPI
[2016-10-22 19:26] VITALS: BP 142/100
[2016-10-22 19:45] LABS: HEMATOCRIT 49.1 % (42.0-52.0); HEMOGLOBIN 16.4 gm/dL (14.0-18.0); MANUAL DIFF YES; MCH 30.8 pg (26.0-34.0); MCHC 33.5 g/dL (28.0-37.0); MCV 92.2 fL (80.0-100.0); PLATELET COUNT 218 thou/uL (150-400); RBC 5.33 mil/uL (4.50-6.00); RDW 13.9 % (10.5-14.5); WBC 19.5 thou/uL (4.0-11.0)
[2016-10-22 20:00] LABS: ANION GAP 18 mmol/L (7-16); BUN 25 mg/dL (7-18); CALCIUM 10.2 mg/dL (8.5-10.1); CHLORIDE 92 mmol/L (98-107); CO2 23 mmol/L (21-32); CREATININE 1.7 mg/dL (0.7-1.3); GLUCOSE 381 mg/dL (74-106); SODIUM 133 mmol/L (136-145)
[2016-10-22 20:07] LABS: ALKALINE PHOSPHATASE 90 U/L (46-116); SGOT 16 U/L (15-37); SGPT 25 U/L (30-65); TOTAL BILIRUBIN 0.7 mg/dL (<0.1-1.0); TOTAL PROTEIN 9.6 g/dL (6.4-8.2); TROPONIN-I < 0.04 ng/mL (<0.04-0.07)
[2016-10-22 20:27] LABS: ABSOLUTE NEUTROPHILS 16.8 thou/uL (1.4-8.2); PLATELET ESTIMATE NORMAL; TOTAL CELL COUNT 100
[2016-10-22 22:14] VITALS: BP 118/75
[2016-10-22 22:30] VITALS: BP 155/94
[2016-10-22 22:45] VITALS: BP 155/94
[2016-10-23 04:00] VITALS: BP 162/117
[2016-10-23 05:55] LABS: CALCIUM 9.6 mg/dL (8.5-10.1); CREATININE 1.4 mg/dL (0.7-1.3); POTASSIUM 4.2 mmol/L (3.5-5.1)
[2016-10-23 09:04] VITALS: BP 122/83
[2016-10-23 19:35] VITALS: BP 104/67
[2016-10-24 08:50] VITALS: BP 103/63
[2016-10-24 14:56] VITALS: BP 103/63
== END 2016-10-24 14:10 | disposition home or self-care (01) ==
LOC: ER 19:25 → EROBS 21:14 → 5S 22:16
PROVIDERS: Hospitalist; Nurse Practitioner Family
DX: E11.43 Type 2 diabetes mellitus with diabetic autonomic (poly)neuropathy (principal); E11.65 Type 2 diabetes mellitus with hyperglycemia; K31.84 Gastroparesis; E86.0 Dehydration; I10 Essential (primary) hypertension; N17.9 Acute kidney failure, unspecified; J40 Bronchitis, not specified as acute or chronic; Z88.5 Allergy status to narcotic agent; Z72.0 Tobacco use

== ENCOUNTER 2017-04-04 11:51 | Emergency (ER) | payer OTHER ==
[~2017-04-04] VITALS: Ht 167.6 cm; Wt 83.9 kg
[2017-04-04 12:28] LABS: HEMOGLOBIN 14.1 gm/dL (14.0-18.0); MCH 30.8 pg (26.0-34.0); MCHC 33.6 g/dL (28.0-37.0); MCV 91.4 fL (80.0-100.0); PLATELET COUNT 249 thou/uL (150-400); RBC 4.59 mil/uL (4.50-6.00); RDW 14.4 % (10.5-14.5); WBC 19.1 thou/uL (4.0-11.0)
[2017-04-04 12:35] LABS: ANION GAP 18 mmol/L (7-16); BUN 23 mg/dL (7-18); CALCIUM 10.9 mg/dL (8.5-10.1); CHLORIDE 93 mmol/L (98-107); CO2 23 mmol/L (21-32); CREATININE 2.1 mg/dL (0.7-1.3); GLUCOSE 327 mg/dL (74-106); POTASSIUM 3.7 mmol/L (3.5-5.1); SODIUM 134 mmol/L (136-145)
[2017-04-04 12:40] LABS: ALBUMIN 4.8 g/dL (3.4-5.0); DIRECT BILIRUBIN < 0.1 mg/dL (<0.1-0.3); LIPASE 61 U/L (73-393); SGOT 22 U/L (15-37); SGPT 28 U/L (30-65); TOTAL BILIRUBIN 0.4 mg/dL (<0.1-1.0); TOTAL PROTEIN 9.5 g/dL (6.4-8.2)
[2017-04-04 12:57] LABS: ABSOLUTE NEUTROPHILS 16.4 thou/uL (1.4-8.2); PLATELET ESTIMATE NORMAL
[2017-04-04 16:00] VITALS: BP 123/85
== END 2017-04-04 16:00 | disposition home or self-care (01) ==
LOC: ER 11:51
PROVIDERS: Emergency Medicine
DX: K31.84 Gastroparesis (principal); I10 Essential (primary) hypertension; J40 Bronchitis, not specified as acute or chronic; E11.43 Type 2 diabetes mellitus with diabetic autonomic (poly)neuropathy; Z87.891 Personal history of nicotine dependence; Z88.7 Allergy status to serum and vaccine; Z90.49 Acquired absence of other specified parts of digestive tract

== ENCOUNTER 2017-04-21 01:47 | Emergency (ER) | payer OTHER ==
[~2017-04-21] VITALS: Ht 167.6 cm; Wt 95.3 kg
[2017-04-21 02:11] LABS: ABSOLUTE NEUTROPHILS 7.8 thou/uL (1.4-8.2); BASOPHILS 1.1 % (0.0-2.0); EOSINOPHILS 0.2 % (0.0-3.0); HEMATOCRIT 32.8 % (42.0-52.0); HEMOGLOBIN 11.5 gm/dL (14.0-18.0); LYMPHOCYTES 14.5 % (24.0-44.0); MCH 32.6 pg (26.0-34.0); MCHC 35.1 g/dL (28.0-37.0); MONOCYTES 8.5 % (1.0-8.0); PLATELET COUNT 262 thou/uL (150-400); POLYS 75.7 % (36.0-66.0); RBC 3.52 mil/uL (4.50-6.00); RDW 14.3 % (10.5-14.5); WBC 10.4 thou/uL (4.0-11.0)
[2017-04-21 02:19] LABS: ANION GAP 11 mmol/L (7-16); BUN 20 mg/dL (7-18); CALCIUM 8.8 mg/dL (8.5-10.1); CHLORIDE 97 mmol/L (98-107); CO2 29 mmol/L (21-32); CREATININE 1.3 mg/dL (0.7-1.3); GLUCOSE 235 mg/dL (74-106); POTASSIUM 4.1 mmol/L (3.5-5.1); SODIUM 137 mmol/L (136-145)
[2017-04-21 02:19] LABS: URINE BILIRUBIN NEGATIVE (Negative); URINE BLOOD TRACE (Negative); URINE CLARITY CLEAR; URINE COLOR YELLOW; URINE GLUCOSE-RANDOM* 2+ (Negative); URINE KETONES 3+ (Negative); URINE LEUKOCYTES-REFLEX NEGATIVE (Negative); URINE NITRITE-REFLEX NEGATIVE (Negative); URINE PROTEIN (DIPSTICK) TRACE (Negative); URINE UROBILINOGEN 0.2 E.U./dl (0.2-1.0)
[2017-04-21 02:25] LABS: ALBUMIN 3.7 g/dL (3.4-5.0); DIRECT BILIRUBIN < 0.1 mg/dL (<0.1-0.3); LIPASE 122 U/L (73-393); SGOT 63 U/L (15-37); SGPT 29 U/L (30-65); TOTAL BILIRUBIN 0.8 mg/dL (<0.1-1.0); TOTAL PROTEIN 7.2 g/dL (6.4-8.2)
[2017-04-21 04:50] VITALS: BP 138/69
[2017-04-21] MEDS ORDERED: PHENERGAN 25 MG25 M1 PO (04:50)
== END 2017-04-21 05:06 | disposition home or self-care (01) ==
LOC: ER 01:47
PROVIDERS: Emergency Medicine
DX: R10.9 Unspecified abdominal pain (principal); R11.10 Vomiting, unspecified; E86.0 Dehydration; K31.84 Gastroparesis; I10 Essential (primary) hypertension; J40 Bronchitis, not specified as acute or chronic; E11.43 Type 2 diabetes mellitus with diabetic autonomic (poly)neuropathy; Z87.891 Personal history of nicotine dependence; Z88.6 Allergy status to analgesic agent

== ENCOUNTER 2017-04-21 06:00 | Emergency (ER) | payer OTHER ==
[~2017-04-21] VITALS: Ht 170.2 cm; Wt 90.7 kg
[2017-04-21 08:01] VITALS: BP 130/85
== END 2017-04-21 08:04 | disposition home or self-care (01) ==
LOC: ER 06:00
DX: K31.84 Gastroparesis (principal); E11.43 Type 2 diabetes mellitus with diabetic autonomic (poly)neuropathy; R10.9 Unspecified abdominal pain; R11.2 Nausea with vomiting, unspecified; I10 Essential (primary) hypertension; J40 Bronchitis, not specified as acute or chronic; Z87.891 Personal history of nicotine dependence; Z88.6 Allergy status to analgesic agent; Z90.49 Acquired absence of other specified parts of digestive tract

== ENCOUNTER 2017-05-16 11:38 | Emergency (ER) | payer OTHER ==
[~2017-05-16] VITALS: Ht 170.2 cm; Wt 77.1 kg
[2017-05-16 12:23] LABS: URINE BILIRUBIN 1+ (Negative); URINE BLOOD TRACE (Negative); URINE CLARITY CLEAR; URINE COLOR YELLOW; URINE GLUCOSE-RANDOM* 2+ (Negative); URINE KETONES 3+ (Negative); URINE LEUKOCYTES NEGATIVE (Negative); URINE NITRITE NEGATIVE (Negative); URINE PROTEIN (DIPSTICK) 1+ (Negative); URINE SPECIFIC GRAVITY >= 1.030 (1.005-1.035); URINE UROBILINOGEN 0.2 E.U./dl (0.2-1.0)
[2017-05-16 12:25] LABS: ICTOTEST (BILI CONFIRMATORY) Negative (Negative)
[2017-05-16 12:34] LABS: HYALINE CASTS 0-3 Few /LPF (None Seen); SQUAMOUS 0-3 Few /LPF (0-3); URINE WBC 0-5 Rare /HPF (0-5)
[2017-05-16 12:35] LABS: CRYSTALS None Seen /LPF (None Seen); FINE GRANULAR CASTS 0-3 Few /LPF (None Seen); MUCUS 4-6 Moderate strn/LPF (None Seen); URINE RBC 0-2 Rare /HPF (0-2)
[2017-05-16 12:38] LABS: BACTERIA 1-9 Few /HPF (None Seen)
[2017-05-16] MEDS ORDERED: PROMS25 WY RECTAL (13:33)
[2017-05-16] MEDS ORDERED: ZOFRAN ODT4 MG PO (13:33)
[2017-05-16] MEDS ORDERED: PHENERGAN 25 MG25 M1 PO (13:33)
[2017-05-16 13:41] LABS: ABSOLUTE NEUTROPHILS 11.8 thou/uL (1.4-8.2); BASOPHILS 0.6 % (0.0-2.0); HEMATOCRIT 41.8 % (42.0-52.0); HEMOGLOBIN 13.9 gm/dL (14.0-18.0); LYMPHOCYTES 10.8 % (24.0-44.0); MCH 31.3 pg (26.0-34.0); MCHC 33.3 g/dL (28.0-37.0); MCV 94.1 fL (80.0-100.0); MONOCYTES 3.7 % (1.0-8.0); PLATELET COUNT 313 thou/uL (150-400); POLYS 84.9 % (36.0-66.0); RBC 4.44 mil/uL (4.50-6.00)
[2017-05-16 13:48] LABS: CALCIUM 10.5 mg/dL (8.5-10.1); CREATININE 1.7 mg/dL (0.7-1.3); POTASSIUM 4.4 mmol/L (3.5-5.1)
[2017-05-16 15:03] VITALS: BP 154/98
== END 2017-05-16 15:03 | disposition home or self-care (01) ==
LOC: ER 11:38
PROVIDERS: Emergency Medicine
DX: E11.43 Type 2 diabetes mellitus with diabetic autonomic (poly)neuropathy (principal); K31.84 Gastroparesis; E87.2 Acidosis; I10 Essential (primary) hypertension; Z90.49 Acquired absence of other specified parts of digestive tract; Z87.891 Personal history of nicotine dependence; Z88.8 Allergy status to other drugs, medicaments and biological substances; Z79.4 Long term (current) use of insulin

== ENCOUNTER 2017-07-20 00:48 | Inpatient (IN) | payer OTHER ==
[2017-07-20] VITALS (26 sets, daily range): BP systolic 95–158; BP diastolic 65–116
[~2017-07-20] VITALS: Ht 172.7 cm; Wt 82.1 kg
--- NOTE | ~2017-07-20 | EKG ---
[address] [address] ELECTROCARDIOGRAM REPORT Name: AMILCAROPAL VIVIENNE Room #: 246-P ADM IN M.R.#: [id number] Admission: 07/20/17 Attend Phys: Cezar Zaman MD Discharge: Date of : 88 Report #: [id number] THIS REPORT FOR: //name// [facility] ED Test Date: 2017-07-20 Test Time: 01:26:24 Pat Name: OPAL FITZGERALD Department: Room: 246 Gender: M Food Service Clerk: kike : 1990 Requested By: Radha Duarte Order Number: [id number] MD: Eleazar Maki Measurements Intervals [place] Rate: 123 P: 87 SC: 126 QRS: 96 QRSD: 94 T: -27 QT: 354 QTc: 507 Interpretive Statements Sinus tachycardia right axis deviation Repol abnrm Prolonged QT interval Baseline wander in lead(s) I Compared to ECG 10/22/2016 19:45:03 No significant change was found Electronically Signed On 07-20-2017 10:36:08 CDT by Eleazar Maki [email or web address] <ELECTRONICALLY SIGNED> By: Eleazar Maki MD, [facility] 07/20/17 1036 0126 0126 Eleazar Maki MD, [facility] /EPI
--- NOTE | ~2017-07-20 | EKG ---
[address] [address] ELECTROCARDIOGRAM REPORT Name: OPAL FITZGERALD VIVIENNE Room #: 246- ADM IN M.R.#: [id number] Admission: 07/20/17 Attend Phys: Cezar Zaman MD Discharge: Date of : 88 Report #: [id number] THIS REPORT FOR: //name// [facility] Test Date: 2017-07-21 Test Time: 13:28:31 Pat Name: OPAL FITZGERALD Department: Room: 246 Gender: M Aircraft Electrician: Cassie OCONNOR : 1990 Requested By: Cezar Zaman Order Number: [id number] MD: Clint Garza Measurements Intervals [place] Rate: 116 P: 86 DE: 126 QRS: 90 QRSD: 87 T: 16 QT: 353 QTc: 491 Interpretive Statements Sinus tachycardia Borderline right axis deviation ST elev, probable normal early repol pattern Electronically Signed On 07-21-2017 14:03:13 CDT by Clint Garza [email or web address] <ELECTRONICALLY SIGNED> By: Clint Garza MD 07/21/17 1403 1328 1328 Clint Garza MD /BRIGITTE
[2017-07-20 01:12] LABS: BE(vivo) -5.9 mmol/L (-2 to +3); HCO3 16.6 mmol/L (22.0-26.0); PCO2 25.8 mmHg (35.0-45.0); PO2 92.6 mmHg (80.0-100.0); pH 7.427 (7.360-7.450); sO2 97.4 % (92.0-98.0)
[2017-07-20 02:15] LABS: HEMATOCRIT 42.7 % (42.0-52.0); HEMOGLOBIN 14.3 gm/dL (14.0-18.0); MCH 31.1 pg (26.0-34.0); MCHC 33.6 g/dL (28.0-37.0); MCV 92.6 fL (80.0-100.0); PLATELET COUNT 256 thou/uL (150-400); RBC 4.61 mil/uL (4.50-6.00); RDW 13.3 % (10.5-14.5); WBC 25.7 thou/uL (4.0-11.0)
[2017-07-20 02:27] LABS: CALCIUM 8.7 mg/dL (8.5-10.1); POTASSIUM 3.6 mmol/L (3.5-5.1)
[2017-07-20 02:30] LABS: ALBUMIN 4.3 g/dL (3.4-5.0); DIRECT BILIRUBIN 0.2 mg/dL (<0.1-0.3); TOTAL BILIRUBIN 0.9 mg/dL (<0.1-1.0); TOTAL PROTEIN 9.2 g/dL (6.4-8.2)
[2017-07-20 02:55] LABS: ABSOLUTE NEUTROPHILS 22.6 thou/uL (1.4-8.2)
[2017-07-20 03:14] LABS: URINE BILIRUBIN NEGATIVE (Negative); URINE BLOOD TRACE (Negative); URINE CLARITY CLEAR; URINE GLUCOSE-RANDOM* 3+ (Negative); URINE KETONES 3+ (Negative); URINE LEUKOCYTES-REFLEX NEGATIVE (Negative); URINE NITRITE-REFLEX NEGATIVE (Negative); URINE PROTEIN (DIPSTICK) NEGATIVE (Negative); URINE SPECIFIC GRAVITY 1.025 (1.005-1.035); URINE UROBILINOGEN 0.2 E.U./dl (0.2-1.0)
[2017-07-20 03:17] LABS: URINE COLOR COLORLESS
[2017-07-20 05:15] LABS: ALBUMIN 3.9 g/dL (3.4-5.0); CREATININE 2.7 mg/dL (0.7-1.3); MAGNESIUM 2.9 mg/dL (1.8-2.4); POTASSIUM 3.6 mmol/L (3.5-5.1)
[2017-07-20 08:15] LABS: AMP/METHAMP Negative (Negative); BARBITURATES Negative (Negative); BENZODIAZEPINES Negative (Negative); COCAINE Negative (Negative); METHADONE Negative (Negative); OPIATES Negative (Negative); PCP Negative (Negative)
[2017-07-20 10:42] LABS: HEMOGLOBIN 13.7 gm/dL (14.0-18.0)
[2017-07-20 10:49] LABS: CREATININE 2.7 mg/dL (0.7-1.3); POTASSIUM 3.1 mmol/L (3.5-5.1)
[2017-07-20 10:53] LABS: ALBUMIN 3.8 g/dL (3.4-5.0); MAGNESIUM 2.8 mg/dL (1.8-2.4); PHOSPHORUS 5.2 mg/dL (2.5-4.9)
[2017-07-20 14:50] LABS: ALBUMIN 3.7 g/dL (3.4-5.0); CALCIUM 8.2 mg/dL (8.5-10.1); CREATININE 2.4 mg/dL (0.7-1.3); MAGNESIUM 2.9 mg/dL (1.8-2.4); PHOSPHORUS 3.6 mg/dL (2.5-4.9); POTASSIUM 3.2 mmol/L (3.5-5.1)
[2017-07-20 18:48] LABS: ALBUMIN 3.5 g/dL (3.4-5.0); CALCIUM 8.3 mg/dL (8.5-10.1); CREATININE 2.2 mg/dL (0.7-1.3); PHOSPHORUS 3.2 mg/dL (2.5-4.9); POTASSIUM 3.9 mmol/L (3.5-5.1)
[2017-07-21] VITALS (17 sets, daily range): BP systolic 61–164; BP diastolic 18–99
[2017-07-21 05:14] LABS: HEMATOCRIT 37.9 % (42.0-52.0); HEMOGLOBIN 12.6 gm/dL (14.0-18.0); MCH 30.5 pg (26.0-34.0); MCHC 33.3 g/dL (28.0-37.0); MCV 91.7 fL (80.0-100.0); RBC 4.13 mil/uL (4.50-6.00); RDW 13.8 % (10.5-14.5); WBC 21.2 thou/uL (4.0-11.0)
[2017-07-21 05:23] LABS: ALBUMIN 3.1 g/dL (3.4-5.0); CALCIUM 8.3 mg/dL (8.5-10.1); CREATININE 1.7 mg/dL (0.7-1.3); PHOSPHORUS 2.3 mg/dL (2.5-4.9); POTASSIUM 3.8 mmol/L (3.5-5.1)
[2017-07-21] MEDS ORDERED: LEVEMIR SUBQ (06:39)
[2017-07-21 17:50] LABS: ANION GAP 13 mmol/L (7-16); BUN 32 mg/dL (7-18); CALCIUM 8.8 mg/dL (8.5-10.1); CHLORIDE 104 mmol/L (98-107); CO2 22 mmol/L (21-32); CREATININE 1.6 mg/dL (0.7-1.3); GLUCOSE 308 mg/dL (74-106); SODIUM 139 mmol/L (136-145)
[2017-07-21 18:01] LABS: MAGNESIUM 2.7 mg/dL (1.8-2.4); TROPONIN-I < 0.04 ng/mL (<0.06)
[2017-07-21 22:20] LABS: CALCIUM 8.6 mg/dL (8.5-10.1); CREATININE 1.5 mg/dL (0.7-1.3)
[2017-07-21 22:26] LABS: POTASSIUM 6.6 mmol/L (3.5-5.1)
[2017-07-22] VITALS (11 sets, daily range): BP systolic 107–166; BP diastolic 64–104
[2017-07-22 05:32] LABS: HEMATOCRIT 31.2 % (42.0-52.0)
[2017-07-22 05:44] LABS: HEMOGLOBIN 10.5 gm/dL (14.0-18.0)
[2017-07-22 08:22] LABS: CALCIUM 8.6 mg/dL (8.5-10.1); CREATININE 1.2 mg/dL (0.7-1.3)
[2017-07-22 08:23] LABS: POTASSIUM 3.4 mmol/L (3.5-5.1)
[2017-07-22 10:23] LABS: HEMATOCRIT 33.6 % (42.0-52.0); HEMOGLOBIN 11.4 gm/dL (14.0-18.0); MCH 30.8 pg (26.0-34.0); MCHC 33.9 g/dL (28.0-37.0); MCV 90.9 fL (80.0-100.0); RBC 3.7 mil/uL (4.50-6.00); RDW 13.4 % (10.5-14.5); WBC 12.3 thou/uL (4.0-11.0)
[2017-07-23 04:00] VITALS: BP 157/106
[2017-07-23 05:07] VITALS: BP 150/86
[2017-07-23 09:00] VITALS: BP 119/74
[2017-07-23 13:51] LABS: HEMATOCRIT 34.9 % (42.0-52.0); HEMOGLOBIN 11.9 gm/dL (14.0-18.0); MCH 31.1 pg (26.0-34.0); MCV 91.6 fL (80.0-100.0); RBC 3.82 mil/uL (4.50-6.00); RDW 13.3 % (10.5-14.5); WBC 10.2 thou/uL (4.0-11.0)
[2017-07-23 14:00] LABS: CALCIUM 8.9 mg/dL (8.5-10.1); CREATININE 1.2 mg/dL (0.7-1.3); MAGNESIUM 1.8 mg/dL (1.8-2.4); POTASSIUM 3.4 mmol/L (3.5-5.1)
== END 2017-07-23 13:44 | disposition left against medical advice (07) | DRG 638 ==
LOC: ER 00:48 → ICU 02:52 → EROBS 02:52 → ICU 03:35 → 4E 07-22 06:08
PROVIDERS: Emergency Medicine; Internal Medicine; Internal Medicine Gastroenterology; Nurse Practitioner Acute Care
PROC: 02HV33Z Insertion of Infusion Device into Superior Vena Cava, Percutaneous Approach (ICD-10-PCS; principal; 2017-07-20)
DX: E10.10 Type 1 diabetes mellitus with ketoacidosis without coma (principal); I47.1 Supraventricular tachycardia; N17.9 Acute kidney failure, unspecified; N18.9 Chronic kidney disease, unspecified; D72.829 Elevated white blood cell count, unspecified; Z53.21 Procedure and treatment not carried out due to patient leaving prior to being seen by health care provider; I12.9 Hypertensive chronic kidney disease with stage 1 through stage 4 chronic kidney disease, or unspecified chronic kidney disease; E10.22 Type 1 diabetes mellitus with diabetic chronic kidney disease; E10.43 Type 1 diabetes mellitus with diabetic autonomic (poly)neuropathy; K31.84 Gastroparesis; F12.90 Cannabis use, unspecified, uncomplicated; Z82.49 Family history of ischemic heart disease and other diseases of the circulatory system; Z83.3 Family history of diabetes mellitus; Z87.891 Personal history of nicotine dependence; Z90.49 Acquired absence of other specified parts of digestive tract; Z79.4 Long term (current) use of insulin; Z88.8 Allergy status to other drugs, medicaments and biological substances; Z91.19 Patient's noncompliance with other medical treatment and regimen; Z79.899 Other long term (current) drug therapy
CPT/HCPCS: 10078; 10183; 27000

== ENCOUNTER 2018-06-03 16:50 | Inpatient (IN) | payer OTHER ==
[~2018-06-03] VITALS: Ht 172.7 cm; Wt 88.5 kg
[~2018-06-03 16:50] MED LIST changes: +LEVEMIR SUBQ
[2018-06-03 16:52] VITALS: BP 163/100
[2018-06-03] MEDS ORDERED: REGLAN 10 MG TA10 MG PO (17:02)
[2018-06-03 17:06] LABS: HEMATOCRIT 39.4 % (42.0-52.0); HEMOGLOBIN 13.2 gm/dL (14.0-18.0); MCH 30.1 pg (26.0-34.0); MCHC 33.5 g/dL (28.0-37.0); MCV 89.8 fL (80.0-100.0); PLATELET COUNT 294 thou/uL (150-400); RBC 4.39 mil/uL (4.50-6.00); RDW 14.1 % (10.5-14.5); WBC 20.3 thou/uL (4.0-11.0)
[2018-06-03 17:14] LABS: ANION GAP 19 mmol/L (7-16); BUN 39 mg/dL (7-18); CALCIUM 10.5 mg/dL (8.5-10.1); CHLORIDE 93 mmol/L (98-107); CO2 23 mmol/L (21-32); CREATININE 2.1 mg/dL (0.7-1.3); GLUCOSE 267 mg/dL (74-106); SODIUM 135 mmol/L (136-145)
[2018-06-03 17:23] LABS: ALBUMIN 4.8 g/dL (3.4-5.0); LIPASE 49 U/L (73-393); SGOT 20 U/L (15-37); SGPT 21 U/L (30-65); TOTAL BILIRUBIN 0.5 mg/dL (<0.1-1.0); TOTAL PROTEIN 9.3 g/dL (6.4-8.2); TROPONIN-I <0.06 ng/mL (<0.06)
[2018-06-03 17:30] VITALS: BP 163/100
[2018-06-03 17:36] LABS: ABSOLUTE NEUTROPHILS 17.3 thou/uL (1.4-8.2)
[2018-06-03 17:37] LABS: ANISOCYTOSIS 1+
[2018-06-03] MEDS ORDERED: TOUJEO MAX300 UNIT/1 SUBQ (17:38)
[2018-06-03 17:46] VITALS: BP 135/88
[2018-06-03 18:18] LABS: MAGNESIUM 1.7 mg/dL (1.8-2.4); PHOSPHORUS 4.2 mg/dL (2.5-4.9)
[2018-06-03 21:27] LABS: CALCIUM 9.4 mg/dL (8.5-10.1); CREATININE 1.7 mg/dL (0.7-1.3); MAGNESIUM 1.8 mg/dL (1.8-2.4); PHOSPHORUS 4.2 mg/dL (2.5-4.9); POTASSIUM 3.9 mmol/L (3.5-5.1)
--- NOTE | 2018-06-03 22:15 | EKG ---
[address] [place] [address] ELECTROCARDIOGRAM REPORT Name: OPAL FITZGERALD VIVIENNE Room #: 247-P ADM IN M.R.#: [id number] Admission: 06/03/18 Attend Phys: Cezar Zaman MD Discharge: Date of : 88 Report #: [id number] THIS REPORT FOR: //name// [facility] ED Test Date: 2018-06-03 Test Time: 17:10:46 Pat Name: OPAL FITZGERALD Department: Room: [facility] Gender: M Register In Chancery: john : 1990 Requested By: Daquan Guzman Order Number: [id number] MD: Clint Garza Measurements Intervals [place] Rate: 126 P: 88 VA: 126 QRS: 98 QRSD: 92 T: -19 QT: 328 QTc: 475 Interpretive Statements Sinus tachycardia Borderline right axis deviation Borderline T abnormalities, inferior leads ST elev, probable normal early repol pattern Borderline prolonged QT interval Baseline wander in lead(s) V2,V4 Compared to ECG 07/21/2017 13:28:31 T-wave abnormality now present ST (T wave) deviation still present Electronically Signed On 06-03-2018 22:15:38 GLASS CHECKER by Clint Garza [email or web address] <ELECTRONICALLY SIGNED> By: Clint Garza MD 06/03/18 2215 09 09 Clint Garza MD /EPI
--- NOTE | 2018-06-04 05:15 | NUR ---
CLIENT ADMITTED TO THE ICU DURING SHIFT CHANGE FOR DKA. CARE ASSUMED 06/03/18 @ 1900. CLIENT A/OX4 AND NEEDING PAIN MANAGEMENT WELL BLOOD GLUCOSE REGULATION. SINUS TACH PER MONITOR MOST OF THE NIGHT THEN DECREASED TO SINUS RHYTHM AROUND 0400. CLIENT IS NPO WITH AN EXCEPTION OF MEDICATIONS WITH SIPS OF WATER. URINAL AT THE BEDSIDE AND SKIN IS INTACT. CLIENT HAS LEFT EJ AND A RIGHT FA PIV WITH MAINT FLUIDS INFUSING. INSULIN GTT FOR DKA PROTOCOL (PLEASE SEE FLOW SHEET). AFIBRILE DURING THE NIGHT. PLEASE SEE [facility] by [employer] FOR ANY ADDITIONAL QUESTIONS/CONCERNS.
[2018-06-04 07:24] LABS: ALBUMIN 3.6 g/dL (3.4-5.0); CREATININE 1.8 mg/dL (0.7-1.3); PHOSPHORUS 4.2 mg/dL (2.5-4.9); POTASSIUM 3.9 mmol/L (3.5-5.1)
[2018-06-04 08:19] VITALS: BP 130/87
[2018-06-04 08:26] LABS: ALBUMIN 3.6 g/dL (3.4-5.0); CALCIUM 9.3 mg/dL (8.5-10.1); CREATININE 1.6 mg/dL (0.7-1.3); PHOSPHORUS 3.6 mg/dL (2.5-4.9); POTASSIUM 4.4 mmol/L (3.5-5.1)
[2018-06-04 09:19] VITALS: BP 130/88
--- NOTE | 2018-06-04 09:25 | NUR ---
Nutrition: pt admitted to ICU with N/V, DKA, abdominal pain. Hx type 1 DM, noncompliance, gastroparesis. Past A1Cs > 10. Pt voices usual appetite is good and po down only one day prior to admit. Stable weights reported. Fluctuations per hx noted. On IVFs, insulin drip. Flat affect. RD available for diet review if pt receptive otherwise consider low risk. REC smaller more frequent meals, low fat/low fiber, carb controlled when diet advanced.
[2018-06-04 10:19] VITALS: BP 146/99
[2018-06-04 12:16] VITALS: BP 146/99
[2018-06-04 13:09] VITALS: BP 146/99
--- NOTE | 2018-06-04 13:10 | NUR ---
PT DISCHARGED TO SELF CARE - AMBULATING OUT OF UNIT - DENIES ANY COMPLAINTS AT THIS TIME - STATES HAS AN APPOINTMENT FOR TOMORROW FOR A FOLLOW UP IN [place] - ENCOURAGED TO TAKE HIS DISEASE SERIOUSLY AND KEEP BS UNDER UNDER CONTROL TO AVOID COMPLICATIONS FROM HIS DIABETES - VERBALIZED UNDERSTANDING
--- NOTE | 2018-06-04 14:33 | NUR ---
CM ASSESSMENT: ADMIT WITH DKA AND KNOWN TO CM FROM PREVIOUS ADMITS. PLANNING DC TODAY AND MET WITH PT. PT LIVES WITH GRANDMOTHER, STATES HAS FUNCTIONING METER, STRIPS AND INSULIN AT HOME. PROVIDED WITH HEALTH RESOURCE GUIDE FOR USE FOR F/U CARE. PT STATES HE HAS APPT TOMORROW IN [place] FOR PRIMARY CARE. PT HAS HAD MEDICAID IN PAST, IS LAPSED AND [employer] HAS MADE MANY ATTEMPTS TO REACH OUT TO PT TO ASSIST WITH MEDICAID KATTY.
== END 2018-06-04 13:12 | disposition home or self-care (01) | DRG 638 ==
LOC: ER 16:50 → EROBS 17:42 → ICU 18:03
PROVIDERS: Emergency Medicine; ADMIT Internal Medicine
DX: E10.10 Type 1 diabetes mellitus with ketoacidosis without coma (principal); N17.9 Acute kidney failure, unspecified; I10 Essential (primary) hypertension; E10.43 Type 1 diabetes mellitus with diabetic autonomic (poly)neuropathy; K31.84 Gastroparesis; E86.0 Dehydration; Z87.81 Personal history of (healed) traumatic fracture; Z90.49 Acquired absence of other specified parts of digestive tract; Z87.891 Personal history of nicotine dependence; Z79.4 Long term (current) use of insulin; Z79.899 Other long term (current) drug therapy; Z88.8 Allergy status to other drugs, medicaments and biological substances; Z82.49 Family history of ischemic heart disease and other diseases of the circulatory system; Z83.3 Family history of diabetes mellitus
CPT/HCPCS: 10078

== ENCOUNTER 2018-07-20 04:54 | Inpatient (IN) | payer OTHER ==
[~2018-07-20] VITALS: Ht 172.7 cm; Wt 92.1 kg
[2018-07-20] VITALS (7 sets, daily range): BP systolic 141–180; BP diastolic 95–115
[~2018-07-20 04:54] MED LIST changes: +TOUJEO MAX300 UNIT/1 SUBQ
[2018-07-20 05:31] LABS: ABSOLUTE NEUTROPHILS 10.5 thou/uL (1.4-8.2); BASOPHILS 0.2 % (0.0-2.0); HEMATOCRIT 36.4 % (42.0-52.0); HEMOGLOBIN 12.1 gm/dL (14.0-18.0); LYMPHOCYTES 11.3 % (24.0-44.0); MCH 30.1 pg (26.0-34.0); MCHC 33.1 g/dL (28.0-37.0); MCV 90.8 fL (80.0-100.0); MONOCYTES 4.6 % (1.0-8.0); PLATELET COUNT 221 thou/uL (150-400); POLYS 83.9 % (36.0-66.0); RBC 4.01 mil/uL (4.50-6.00); RDW 15.2 % (10.5-14.5); WBC 12.5 thou/uL (4.0-11.0)
[2018-07-20 05:51] LABS: CALCIUM 9.7 mg/dL (8.5-10.1); CREATININE 2.3 mg/dL (0.7-1.3); POTASSIUM 4.6 mmol/L (3.5-5.1)
[2018-07-20 05:56] LABS: ALBUMIN 4.5 g/dL (3.4-5.0); MAGNESIUM 1.9 mg/dL (1.8-2.4); TOTAL BILIRUBIN 0.7 mg/dL (<0.1-1.0); TOTAL PROTEIN 8.3 g/dL (6.4-8.2)
[2018-07-20 08:48] LABS: BE(vivo) -7.1 mmol/L (-2 to +3); HCO3 17.5 mmol/L (22.0-26.0); PCO2 32.2 mmHg (35.0-45.0); PO2 97.5 mmHg (80.0-100.0); pH 7.353 (7.360-7.450); sO2 97.2 % (92.0-98.0)
[2018-07-20 08:49] LABS: URINE BILIRUBIN NEGATIVE (Negative); URINE BLOOD 2+ (Negative); URINE CLARITY CLEAR; URINE COLOR YELLOW; URINE GLUCOSE-RANDOM* 3+ (Negative); URINE KETONES 2+ (Negative); URINE LEUKOCYTES NEGATIVE (Negative); URINE NITRITE NEGATIVE (Negative); URINE PROTEIN (DIPSTICK) 1+ (Negative); URINE SPECIFIC GRAVITY >= 1.030 (1.005-1.035); URINE UROBILINOGEN 0.2 E.U./dl (0.2-1.0)
[2018-07-20 08:57] LABS: AMP/METHAMP Negative (Negative); BARBITURATES Negative (Negative); BENZODIAZEPINES Negative (Negative); COCAINE Negative (Negative); METHADONE Negative (Negative); OPIATES Negative (Negative); PCP Negative (Negative)
[2018-07-20 09:04] LABS: CASTS None Seen /LPF (None Seen); CRYSTALS None Seen /LPF (None Seen); MUCUS 0-3 Light strn/LPF (None Seen); SQUAMOUS None Seen /LPF (0-3); URINE WBC 0-5 Rare /HPF (0-5)
[2018-07-20 09:05] LABS: BACTERIA 1-9 Few /HPF (None Seen); URINE RBC 0-2 Rare /HPF (0-2)
[2018-07-20 14:36] LABS: ANION GAP 17 mmol/L (7-16); BUN 28 mg/dL (7-18); CALCIUM 9.3 mg/dL (8.5-10.1); CHLORIDE 98 mmol/L (98-107); CO2 20 mmol/L (21-32); CREATININE 1.8 mg/dL (0.7-1.3); GLUCOSE 289 mg/dL (74-106); MAGNESIUM 1.7 mg/dL (1.8-2.4); POTASSIUM 4.5 mmol/L (3.5-5.1); SODIUM 135 mmol/L (136-145)
--- NOTE | 2018-07-20 18:44 | NUR ---
Assumed care of patient when arrived from ER. Patient is alert and oriented x4, drowsy at times, but easily arousable. BP elevated and ST on admission, but both are trending down. Otherwise, VSS. Admission history, education and admission completed. Medications reconciled. Fall precautions in place and appropriate arm bands. Patient complaining of severe abdominal pain and nausea / vomiting. Emesis x2 - clear liquid. No evidence of any bleeding. Zofran and Morphine administered with partial effects. A few hours after administration, patient writhing in bed in pain and vomiting again. Dr. Tre palafox and additional orders placed. Also order for IVF bolus and increase in fluids. Additional Morphine given, Compazine given. Pain and nausea appear to be better controlled currently. Voiding per urinal. Up with SBA. Repeat labs to monitor for DKA. Insulin given per orders. Not yet progressing towards POC. Will continue to monitor.
[2018-07-20 18:46] LABS: CALCIUM 8.9 mg/dL (8.5-10.1); CREATININE 1.6 mg/dL (0.7-1.3); POTASSIUM 3.9 mmol/L (3.5-5.1)
[2018-07-21] VITALS: BP 180/115
--- NOTE | 2018-07-21 05:20 | NUR ---
Assumed patient care around 2300. Patient's nausea and vomiting staying under control this shift. Patient vomiting known once with dark yellow emesis present in basin. Patient given nausea meds twice this shift and tolerated well. Patient working toward this care plan goal. Patient has complained of abdominal pain during the night. Morphine given as indicated. Pain improves with medication administration. Patient currently resting post Morphine administration. Patient is partially meeting his pain care plan goal at this time.
[2018-07-21 05:56] VITALS: BP 139/99
[2018-07-21 07:56] VITALS: BP 140/104
[2018-07-21 08:00] VITALS: BP 150/99
[2018-07-21 11:35] VITALS: BP 150/99
[2018-07-21 12:27] LABS: CALCIUM 8.9 mg/dL (8.5-10.1); CREATININE 1.3 mg/dL (0.7-1.3); MAGNESIUM 1.8 mg/dL (1.8-2.4); POTASSIUM 4.5 mmol/L (3.5-5.1)
[2018-07-21 12:49] LABS: HEMATOCRIT 39.8 % (42.0-52.0); HEMOGLOBIN 13.1 gm/dL (14.0-18.0); MCH 30.1 pg (26.0-34.0); RBC 4.37 mil/uL (4.50-6.00); WBC 8.3 thou/uL (4.0-11.0)
[2018-07-21] MEDS ORDERED: ACETAMINOPHEN325 M1 PO (15:09)
--- NOTE | 2018-07-21 17:59 | NUR ---
CHANI DISCHARGED AT THIS TIME TO HOME VIA CAB. CAB VOUCHER OBTAINED FROM [employer]. HE IS ALERT ORIENTED X4. AMBULATES WITH STEADY GAIT. DOES NOT SEEM TO BE IN PAIN. PRECRIPTION GIVEN.
== END 2018-07-21 18:12 | disposition home or self-care (01) | DRG 638 ==
LOC: ER 04:54 → EROBS 08:27 → 3W 10:02
PROVIDERS: Emergency Medicine; Student in an Organized Health Care Education/Training Program; ADMIT Internal Medicine
DX: E10.10 Type 1 diabetes mellitus with ketoacidosis without coma (principal); N17.9 Acute kidney failure, unspecified; I10 Essential (primary) hypertension; E10.43 Type 1 diabetes mellitus with diabetic autonomic (poly)neuropathy; F12.90 Cannabis use, unspecified, uncomplicated; K31.84 Gastroparesis; Z90.49 Acquired absence of other specified parts of digestive tract; Z87.81 Personal history of (healed) traumatic fracture; Z88.8 Allergy status to other drugs, medicaments and biological substances; Z82.49 Family history of ischemic heart disease and other diseases of the circulatory system; Z83.3 Family history of diabetes mellitus
CPT/HCPCS: 10879

== ENCOUNTER 2018-08-13 22:22 | Inpatient (IN) | payer OTHER ==
[~2018-08-13] VITALS: Ht 172.7 cm; Wt 95.8 kg
[2018-08-13 22:39] VITALS: BP 168/111
[2018-08-13 23:34] LABS: CALCIUM 11.3 mg/dL (8.5-10.1); CREATININE 2.1 mg/dL (0.7-1.3); POTASSIUM 4.9 mmol/L (3.5-5.1)
[2018-08-13 23:40] LABS: ALBUMIN 5.5 g/dL (3.4-5.0); TOTAL BILIRUBIN 0.5 mg/dL (<0.1-1.0); TOTAL PROTEIN 10.2 g/dL (6.4-8.2)
[2018-08-14] VITALS (7 sets, daily range): BP systolic 118–172; BP diastolic 75–116
[2018-08-14 04:55] LABS: CALCIUM 9.8 mg/dL (8.5-10.1); CREATININE 1.8 mg/dL (0.7-1.3); POTASSIUM 4.8 mmol/L (3.5-5.1)
[2018-08-14 05:01] LABS: BASOPHILS 0.7 % (0.0-2.0); HEMATOCRIT 37.5 % (42.0-52.0); HEMOGLOBIN 12.2 gm/dL (14.0-18.0); LYMPHOCYTES 7.2 % (24.0-44.0); MCH 29.8 pg (26.0-34.0); MCHC 32.5 g/dL (28.0-37.0); MCV 91.7 fL (80.0-100.0); MONOCYTES 4.5 % (1.0-8.0); PLATELET COUNT 261 thou/uL (150-400); POLYS 87.6 % (36.0-66.0); RBC 4.09 mil/uL (4.50-6.00); RDW 15.4 % (10.5-14.5); WBC 18.3 thou/uL (4.0-11.0)
--- NOTE | 2018-08-14 06:36 | NUR ---
ADMITTED PT FROM ER UNDER 'S CARE. ARRIVED ON THE UNIT AROUND 0625. VSS. AXOX2. VERY DRWOSY. FALL PRECAUTIOS PLACED. TELEMETRY STARTED. ST ON MONITOR. UNABLE TO COMMUNICATE AT THIS TIME DUE TO DROWSINESS. WILL GIVE REPORT TO DAY RN FOR PLAN OF CARE.
--- NOTE | 2018-08-14 08:25 | NUR ---
ASSUMED CARE OF PT AT 0700. PT ARRIVED FROM ED AROUND 0600. ADMISSION ASSESSMENT COMPLETED. PT VERY DROWSY AND LETHARGIC DUE TO MEDS GIVEN IN ED, BUT AROUSABLE TO STUMULI. FALL RISK PRECAUTIONS IN PLACE, BED ALARM ON. WILL WAIT FOR NEW ORDERS.
--- NOTE | 2018-08-14 12:56 | NUR ---
ASSUMED PATIENT CARE FROM [facility]. PATIENT TRANSFERRED FROM [facility] THIS AM IN ANTICIPATION FOR POSSIBLE INSULIN GTT ORDER. PATIENTS BLOOD SUGAR IS RUNNING IN THE LOW 100S AND SLIDING SCALE INSULIN IS ORDERED. CREATININE 1.8 TODAY, FLUIDS INFUSING. PATIENT IS SOMEWHAT LETHARGIC BUT EASILY ROUSABLE. BED ALARM ON UNTIL PATIENT IS MORE ALERT. NO COMPLAINTS OF PAIN OR NAUSEA AT THIS TIME.
--- NOTE | 2018-08-14 16:27 | NUR ---
INITIAL ASSESSMENT: SW reviewed chart and spoke with nursing and attending physician. Pt was transferred to 3W from 4W this morning. Pt with hx of noncompliance. Pt is diabetic. SW met with pt at bedside. Introduced role of SW. Pt is alert/orientated x 4. Pt reports he lives at home with his grandmother and family. Prior to admission, pt was independent with ADLs. Pt states he has not had Medicaid in the past. [employer] to meet with pt. Pt does not have a PCP. SW to provide update Health Resource Guide and prescription card. Plan is for pt to discharge home when medically stable. SW is following to assist as needed with discharge planning.
[2018-08-15] VITALS: BP 128/83
[2018-08-15 04:18] VITALS: BP 135/87
[2018-08-15 04:48] LABS: AMP/METHAMP Negative (Negative); BARBITURATES Negative (Negative); BENZODIAZEPINES Negative (Negative); COCAINE Negative (Negative); METHADONE Negative (Negative); OPIATES Negative (Negative); PCP Negative (Negative)
[2018-08-15 04:53] LABS: URINE BILIRUBIN NEGATIVE (Negative); URINE BLOOD TRACE (Negative); URINE CLARITY CLEAR; URINE COLOR YELLOW; URINE GLUCOSE-RANDOM* NEGATIVE (Negative); URINE KETONES NEGATIVE (Negative); URINE LEUKOCYTES-REFLEX NEGATIVE (Negative); URINE NITRITE-REFLEX NEGATIVE (Negative); URINE PROTEIN (DIPSTICK) 1+ (Negative); URINE SPECIFIC GRAVITY 1.015 (1.005-1.035); URINE UROBILINOGEN 0.2 E.U./dl (0.2-1.0)
--- NOTE | 2018-08-15 05:02 | NUR ---
Patient ALOx4 all shift but drowsy and would fall back asleep quickly after conversation. Patient has had hypoglycemic episodes this shift with sugars of 37 and 38. Patient would be diaphoretic at times throughout the shift. 8 oz of juice given after the first reading of 37 and the sugar increased to 70. ANTWAN Sánchez notified. The patient reported around 2245 that he felt like he had a low blood sugar and the result was 38. One amp of D50 given and the sugar increased to 154. The patient has been drinking apple juice throughout the night. No nausea or vomiting reported. Abdominal pain reported; Tylenol administered per orders recieved from ANTWAN Sánchez. Urine sent down to lab for a sample per order. Patient ambulated well to the bathroom and back. Bed alarm on and call light within reach. Partial progress toward plan of care goals at this time.
[2018-08-15 06:18] LABS: BACTERIA-REFLEX None Seen /HPF (None Seen); CASTS None Seen /LPF (None Seen); SQUAMOUS 0-3 Few /LPF (0-3); URINE RBC 0-2 Rare /HPF (0-2); URINE WBC-REFLEX 0-5 Rare /HPF (0-5)
[2018-08-15 06:19] LABS: CRYSTALS None Seen /LPF (None Seen)
[2018-08-15 07:28] VITALS: BP 120/81
[2018-08-15 09:12] LABS: CALCIUM 8.9 mg/dL (8.5-10.1); CREATININE 1.2 mg/dL (0.7-1.3); MAGNESIUM 2.2 mg/dL (1.8-2.4)
[2018-08-15 09:13] LABS: POTASSIUM 5.1 mmol/L (3.5-5.1)
[2018-08-15 10:12] LABS: HEMATOCRIT 36.2 % (42.0-52.0); HEMOGLOBIN 12.1 gm/dL (14.0-18.0); MCH 31.1 pg (26.0-34.0); MCHC 33.5 g/dL (28.0-37.0); MCV 92.8 fL (80.0-100.0); RBC 3.9 mil/uL (4.50-6.00); RDW 15.9 % (10.5-14.5)
[2018-08-15 12:06] VITALS: BP 125/64
[2018-08-15 12:33] VITALS: BP 125/64
--- NOTE | 2018-08-15 12:40 | NUR ---
ASSUMED CARE AT 0830, ASSESSMENT DOCUMENTED AND VSS. BG 72 AND 100 AT LUCH TIME. DISCHARGE AND MEDICATION INSTRUCTIONS GIVEN TO PT AND HE VERBALIZED UNDERSTANDING AND PATIENT DISCHARGED HOME.
[2018-08-15] MEDS ORDERED: WORK EXCUSE (12:50)
--- NOTE | 2018-08-15 14:57 | NUR ---
DISCHARGE NOTE: SW notified by nursing that pt had discharge orders to go home. Pt needed transportation home. SW reviewed chart. Pt stated that he has insulin at home. Cab voucher provided to pt's nurse. Pt left prior to SW visit to provide Health Resource Guide and prescription discount card. No additional SW needs identified at this time, but is available to assist should needs arise.
== END 2018-08-15 14:16 | disposition home or self-care (01) | DRG 684 ==
LOC: ER 22:22 → 4W 08-14 05:35 → EROBS 08-14 05:35 → 3W 08-14 06:08 → 4W 08-14 06:41 → 3W 08-14 09:51
PROVIDERS: Emergency Medicine; ADMIT Internal Medicine
DX: N17.9 Acute kidney failure, unspecified (principal); E11.43 Type 2 diabetes mellitus with diabetic autonomic (poly)neuropathy; I10 Essential (primary) hypertension; K31.84 Gastroparesis; Z79.899 Other long term (current) drug therapy; Z79.84 Long term (current) use of oral hypoglycemic drugs; Z90.49 Acquired absence of other specified parts of digestive tract; Z88.8 Allergy status to other drugs, medicaments and biological substances; Z83.3 Family history of diabetes mellitus; Z82.49 Family history of ischemic heart disease and other diseases of the circulatory system
CPT/HCPCS: 10879

== ENCOUNTER 2018-11-09 12:57 | Emergency (ER) | payer OTHER ==
[~2018-11-09] VITALS: Ht 172.7 cm; Wt 90.7 kg
[~2018-11-09 12:57] MED LIST changes: +WORK EXCUSE
[2018-11-09] MEDS ORDERED: MOBIC7.5 MG PO (14:30)
[2018-11-09 15:02] VITALS: BP 120/63
== END 2018-11-09 15:03 | disposition home or self-care (01) ==
LOC: ER 12:57
DX: S63.691A Other sprain of left index finger, initial encounter (principal); I10 Essential (primary) hypertension; E10.43 Type 1 diabetes mellitus with diabetic autonomic (poly)neuropathy; K31.84 Gastroparesis; Z90.49 Acquired absence of other specified parts of digestive tract; Z79.4 Long term (current) use of insulin; Z88.6 Allergy status to analgesic agent; W18.39XA Other fall on same level, initial encounter; Y93.89 Activity, other specified; Y92.89 Other specified places as the place of occurrence of the external cause; Y99.8 Other external cause status

== ENCOUNTER 2018-11-17 16:08 | Emergency (ER) | payer OTHER ==
[~2018-11-17] VITALS: Ht 172.7 cm; Wt 90.7 kg
[2018-11-17 16:21] LABS: URINE BILIRUBIN NEGATIVE (Negative); URINE BLOOD TRACE (Negative); URINE CLARITY CLEAR; URINE COLOR YELLOW; URINE GLUCOSE-RANDOM* NEGATIVE (Negative); URINE KETONES TRACE (Negative); URINE LEUKOCYTES-REFLEX NEGATIVE (Negative); URINE NITRITE-REFLEX NEGATIVE (Negative); URINE PROTEIN (DIPSTICK) 2+ (Negative); URINE SPECIFIC GRAVITY 1.025 (1.005-1.035); URINE UROBILINOGEN 0.2 E.U./dl (0.2-1.0)
[2018-11-17] MEDS ORDERED: REGLAN 10 MG TA10 MG PO (16:23)
[2018-11-17 16:45] LABS: BACTERIA-REFLEX 1-9 Few /HPF (None Seen); CASTS None Seen /LPF (None Seen); CRYSTALS None Seen /LPF (None Seen); MUCUS 0-3 Light strn/LPF (None Seen); SQUAMOUS 0-3 Few /LPF (0-3); URINE RBC 3-10 Few /HPF (0-2); URINE WBC-REFLEX 0-5 Rare /HPF (0-5)
[2018-11-17 16:51] LABS: CALCIUM 9.3 mg/dL (8.5-10.1); CREATININE 1.3 mg/dL (0.7-1.3); POTASSIUM 3.2 mmol/L (3.5-5.1)
[2018-11-17 16:57] LABS: TOTAL BILIRUBIN 0.4 mg/dL (<0.1-1.0); TOTAL PROTEIN 7.3 g/dL (6.4-8.2)
[2018-11-17 16:57] LABS: HEMATOCRIT 32.9 % (42.0-52.0); HEMOGLOBIN 11.1 gm/dL (14.0-18.0); MCH 30.6 pg (26.0-34.0); MCHC 33.8 g/dL (28.0-37.0); MCV 90.5 fL (80.0-100.0); RBC 3.63 mil/uL (4.50-6.00); RDW 14.2 % (10.5-14.5); WBC 10.7 thou/uL (4.0-11.0)
[2018-11-17 20:45] VITALS: BP 132/81
== END 2018-11-17 19:30 | disposition home or self-care (01) ==
LOC: ER 16:08
PROVIDERS: Student in an Organized Health Care Education/Training Program
DX: R11.2 Nausea with vomiting, unspecified (principal); R10.13 Epigastric pain; F12.90 Cannabis use, unspecified, uncomplicated; E10.43 Type 1 diabetes mellitus with diabetic autonomic (poly)neuropathy; K31.84 Gastroparesis; I10 Essential (primary) hypertension; Z88.6 Allergy status to analgesic agent; Z79.4 Long term (current) use of insulin; Z90.49 Acquired absence of other specified parts of digestive tract; Z87.891 Personal history of nicotine dependence

== ENCOUNTER 2018-12-29 11:20 | Inpatient (IN) | payer OTHER ==
[~2018-12-29] VITALS: Ht 172.7 cm; Wt 90.7 kg
[2018-12-29 11:21] VITALS: BP 139/86
[2018-12-29 11:33] LABS: ABSOLUTE NEUTROPHILS 7.7 thou/uL (1.4-8.2); BASOPHILS 0.7 % (0.0-2.0); HEMATOCRIT 37.3 % (42.0-52.0); HEMOGLOBIN 12.3 gm/dL (14.0-18.0); LYMPHOCYTES 22.7 % (24.0-44.0); MCH 30.4 pg (26.0-34.0); MCHC 32.8 g/dL (28.0-37.0); MCV 92.8 fL (80.0-100.0); MONOCYTES 6.9 % (1.0-8.0); PLATELET COUNT 287 thou/uL (150-400); POLYS 65.7 % (36.0-66.0); RBC 4.03 mil/uL (4.50-6.00); RDW 14.5 % (10.5-14.5); WBC 11.8 thou/uL (4.0-11.0)
[2018-12-29 11:40] LABS: CREATININE 1.8 mg/dL (0.7-1.3); POTASSIUM 4.1 mmol/L (3.5-5.1)
[2018-12-29 11:46] LABS: ALBUMIN 4.5 g/dL (3.4-5.0); TOTAL BILIRUBIN 0.5 mg/dL (<0.1-1.0); TOTAL PROTEIN 8.7 g/dL (6.4-8.2)
[2018-12-29 13:34] LABS: URINE BILIRUBIN NEGATIVE (Negative); URINE BLOOD 2+ (Negative); URINE CLARITY CLEAR; URINE COLOR YELLOW; URINE GLUCOSE-RANDOM* 3+ (Negative); URINE KETONES 1+ (Negative); URINE LEUKOCYTES-REFLEX NEGATIVE (Negative); URINE NITRITE-REFLEX NEGATIVE (Negative); URINE PROTEIN (DIPSTICK) 1+ (Negative); URINE UROBILINOGEN 0.2 E.U./dl (0.2-1.0)
[2018-12-29 13:42] LABS: AMP/METHAMP Negative (Negative); BARBITURATES Negative (Negative); BENZODIAZEPINES Negative (Negative); COCAINE POSITIVE (Negative); METHADONE Negative (Negative); OPIATES POSITIVE (Negative); PCP Negative (Negative)
[2018-12-29 13:46] LABS: BACTERIA-REFLEX None Seen /HPF (None Seen); CASTS None Seen /LPF (None Seen); CRYSTALS None Seen /LPF (None Seen); SQUAMOUS None Seen /LPF (0-3); URINE RBC 3-10 Few /HPF (0-2); URINE WBC-REFLEX None Seen /HPF (0-5)
[2018-12-29 14:11] VITALS: BP 177/107
[2018-12-29 15:47] VITALS: BP 175/104
[2018-12-29 19:19] VITALS: BP 172/111
[2018-12-29 23:41] VITALS: BP 166/93
--- NOTE | 2018-12-30 03:36 | NUR ---
PATIENT IS PROGRESSING SLOWLY IN HIS CARE PLAN. VITAL SIGNS STABLE WITH PATIENT HAVING FREQUENT COMPLAINTS OF ABDOMINAL PAIN AND NAUSEA. EFFECTIVE TREATMENT PROVIDED PER MEDICATIONS AND NON PHARMACOLOGICAL INTERVENTIONS. PATIENT IS FULLY ALERT AND ORIENTED, BUT IS OFTEN FLAT AND UNCOOPERATIVE WITH STAFF WHEN IT COMES TO CARE. UP MULTIPLE TIMES WITH ASSISTANCE INCIDENT FREE, PATIENT IS CONSIDERED A HIGH FALL RISK. CONTINUE PLAN OF CARE.
[2018-12-30 04:06] VITALS: BP 106/58
[2018-12-30 06:00] LABS: HEMATOCRIT 32.1 % (42.0-52.0); HEMOGLOBIN 10.6 gm/dL (14.0-18.0); MCH 30.6 pg (26.0-34.0); MCHC 32.9 g/dL (28.0-37.0); MCV 92.9 fL (80.0-100.0); RBC 3.45 mil/uL (4.50-6.00); RDW 14.9 % (10.5-14.5); WBC 14.2 thou/uL (4.0-11.0)
[2018-12-30 06:08] LABS: CALCIUM 9.2 mg/dL (8.5-10.1); CREATININE 1.5 mg/dL (0.7-1.3); POTASSIUM 4.3 mmol/L (3.5-5.1)
[2018-12-30 07:38] VITALS: BP 114/76
[2018-12-30 13:21] VITALS: BP 114/76
--- NOTE | 2018-12-30 14:33 | NUR ---
PATIENT DISCHARGED HOME AT THIS TIME BY HIS REQUEST. STATES HE FEELS WELL ENOUGH AND WILL LIKE TO GO HOME. EDUCATED ON HIS LABS AND HE STILL STATED HE DOES NOT CARE. WANTS TO GO HOME. SIGNED DISCHARGERD PAPERS. CAB VOCHER GIVEN BY SECURITY.
== END 2018-12-30 14:25 | disposition home or self-care (01) | DRG 392 ==
LOC: ER 11:20 → EROBS 14:05 → 4S 15:47
PROVIDERS: Physician Assistant; ADMIT Hospitalist
DX: K31.89 Other diseases of stomach and duodenum (principal); N17.9 Acute kidney failure, unspecified; F14.10 Cocaine abuse, uncomplicated; R11.2 Nausea with vomiting, unspecified; F12.10 Cannabis abuse, uncomplicated; E10.9 Type 1 diabetes mellitus without complications; I10 Essential (primary) hypertension; Z90.49 Acquired absence of other specified parts of digestive tract; Z88.8 Allergy status to other drugs, medicaments and biological substances; Z79.899 Other long term (current) drug therapy; Z82.49 Family history of ischemic heart disease and other diseases of the circulatory system; Z83.3 Family history of diabetes mellitus
CPT/HCPCS: 10100

== ENCOUNTER 2019-01-02 15:46 | Inpatient (IN) | payer OTHER ==
[~2019-01-02] VITALS: Ht 172.7 cm; Wt 79.7 kg
--- NOTE | ~2019-01-02 | H ---
[facility] [place] [address] HISTORY AND PHYSICAL Name: OPAL FITZGERALD ROSICLARE Room #: 444-P ADM IN M.R.#: [id number] Admission: 01/02/19 ������������������ Attend Phys: Dominique Sanchez MD Discharge: ������������������ Date of : 88 Report #: [id number] THIS REPORT FOR: //name// CC: JILLIAN physician/PCP Dominique Sanchez DATE OF SERVICE: 01/02/2019 CHIEF COMPLAINT: 1. Intractable nausea and vomiting for the last 2 days. 2. Abdominal pain for 1 day. 3. Fever, chills and night sweats for 1 day. HISTORY OF PRESENT ILLNESS: The patient is a 28-year-old obese gentleman who informs me that he does not have a primary care and he comes to the [facility] whenever he needs care and he informs me that he was recently admitted to the hospital for nausea and vomiting after using marijuana on of this month and the patient was given IV fluids and was significantly better; and therefore, he informs me that initially nausea and vomiting started and he has not used any marijuana since and started having nausea and vomiting followed by abdominal pain for past 1 day points to the epigastric area. The patient denies any hematochezia, melena, but he definitely has had fever, shaking chills or night sweats along with his illness. The patient informs me that last meal he has had was more than 2 days ago and that was because of the nausea and vomiting. The patient denies any syncopal episodes, but he has had dizziness since yesterday when he arrived in the Emergency Room. He was very diaphoretic with intractable nausea and vomiting and was given Compazine as well as Haldol and since then, the patient informs me that he has had significant improvement in the symptoms. The patient denies any hematemesis at home; however, here in the ER, he has had one episode of small amount of blood in the emesis. PAST MEDICAL HISTORY: Significant for: 1. Type 1 diabetes mellitus with complications. 2. Chronic marijuana use. 3. Gastroparesis. 4. Chronic kidney disease stage 3. 5. Recurrent admissions with acute renal failure. 6. Substance abuse with cocaine abuse as well. 7. Recurrent hypokalemia. 8. History of fall and rib contusion. ALLERGIES: TRAMADOL CAUSES HIVES. PERSONAL AND SOCIAL HISTORY: The patient informs me that he lives with his maternal grandmother and she does not have any major health problems and his [facility] [address] [place] [address] HISTORY AND PHYSICAL Name: OPAL FITZGERALD ROSICLARE Room #: 444-P [facility] [place] M.R.#: [id number] Admission: 01/02/19 ������������������ Attend Phys: Dominique Sanchez MD Discharge: ������������������ Date of : 88 Report #: [id number] mother with seizure disorder. He does not know much about his father. PAST SURGICAL HISTORY: None. REVIEW OF SYSTEMS: A 10-point review of systems was done. PHYSICAL EXAMINATION: VITAL SIGNS: When the patient presented to the Emergency Room, had a heart rate of 128, respirations 24, blood pressure 143/77, pulse oximetry 100% on room air. At the time of examination, the patient had heart rate of 128, respirations 24, blood pressure 151/82, pulse ox 100% on room air. GENERAL: Alert and oriented to time, place and person. 28-year-old obese gentleman who complains of being cold, but in no acute cardiopulmonary distress, but appears mildly tachypneic. HEENT: Normocephalic, atraumatic. Pupils equally round, reactive to light. Conjunctivae are clear, sclerae nonicteric. Oropharynx clear. Mucous membranes dry. NECK: Supple, no JVD, no lymphadenopathy. HEART: S1, S2 regular. No tachycardia noted. LUNGS: Clear to auscultation bilaterally without any crackles or wheezes. ABDOMEN: Soft, nontender, nondistended, normoactive bowel sounds, very minimal discomfort noted mid abdominal, otherwise no discomfort. EXTREMITIES: No edema both lower extremities noted. NEUROLOGIC: Nonfocal. SKIN: The patient has no skin breakdown noted. LABORATORY DATA AND X-RAYS: Lactic acid was requested by the ER provider, so it was ordered. WBC 12.5, hemoglobin 13.7, hematocrit 41.3, platelet count 278, segmented neutrophil 58%, lymphocytes 31.6, monocytes 8.7%. Chemistries indicate sodium 137, potassium 2.9, chloride 94, bicarbonate 27, anion gap 16, BUN 27, creatinine 2.5, calculated GFR 37, glucose 328, calcium 10.5, magnesium 2.2, total bilirubin 0.8, AST 13, ALT 13, alkaline phosphatase 103, total protein 9.2, albumin 5, lipase 72. Chest x-ray was ordered in the Emergency Room and was negative. Gastro occult blood was sent and the result was pending. Electrocardiogram showed sinus tachycardia. Report changes noted. Blood cultures were drawn in the Emergency Room. 1000 mL of normal saline bolus was written and lactic acid was requested and magnesium was added to the blood work as well. Phosphorus and potassium was repeated as well. Repeat potassium was 4.1 and phosphorus was 4.4, magnesium was 2 and repeat hemoglobin as the patient had a blood-tinged emesis. Repeat hemoglobin was 12.2. Type and screen was ordered and hemoglobin monitoring was ordered. [facility] [address] [address] HISTORY AND PHYSICAL Name: AMILCAROPAL MEJIA ROSICLARE Room #: 444-P ADM IN M.R.#: [id number] Admission: 01/02/19 ������������������ Attend Phys: Dominique Sanchez MD Discharge: ������������������ Date of : 88 Report #: [id number] ASSESSMENT: 1. Intractable nausea and vomiting with blood-tinged emesis. 2. Acute renal insufficiency. 3. Diabetes mellitus type 1. 4. Gastroparesis. 5. Lactic acidosis. 6. Dehydration. 7. Hypertension. 8. Obesity. 9. Recent fever and chills with abdominal pain without any history of diarrhea. PLAN: 1. The patient has been given 1000 mL wide open bolus in the Emergency Room. Repeat lactic acid has been ordered. 2. Protonix b.i.d. 4 doses to be written for one episode of a blood-tinged emesis in the Emergency Room. 3. We will continue normal saline at 75 mL an hour. 4. Sliding scale insulin has been started. 5. Accurate intake and output and urine output monitoring. 6. If urine output goes down or if creatinine does not improve, then we will consult Renal. 7. GI prophylaxis is written. 8. Plan of care was discussed with the patient. 9. GI prophylaxis with Protonix and DVT prophylaxis. No heparin or Lovenox will be used as the patient had blood-tinged emesis. We will use pneumatic compression devices. The patient wishes to be full code and full code is written. Emergency contact is his grandmother. ��������������������������������������������� ���������������������������������������� By: ��������������������������������������������� 2311 2345 Dominique Sanchez MD /nt
[2019-01-02 16:03] LABS: ABSOLUTE NEUTROPHILS 7.2 thou/uL (1.4-8.2); EOSINOPHILS 0.5 % (0.0-3.0); HEMATOCRIT 41.3 % (42.0-52.0); HEMOGLOBIN 13.7 gm/dL (14.0-18.0); LYMPHOCYTES 31.6 % (24.0-44.0); MCH 30.4 pg (26.0-34.0); MCHC 33.2 g/dL (28.0-37.0); MCV 91.5 fL (80.0-100.0); MONOCYTES 8.7 % (1.0-8.0); PLATELET COUNT 278 thou/uL (150-400); POLYS 58.2 % (36.0-66.0); RBC 4.52 mil/uL (4.50-6.00); RDW 14.6 % (10.5-14.5); WBC 12.5 thou/uL (4.0-11.0)
[2019-01-02 16:16] LABS: CALCIUM 10.5 mg/dL (8.5-10.1); CREATININE 2.5 mg/dL (0.7-1.3); TOTAL BILIRUBIN 0.8 mg/dL (<0.1-1.0); TOTAL PROTEIN 9.2 g/dL (6.4-8.2)
[2019-01-02 16:22] LABS: POTASSIUM 2.9 mmol/L (3.5-5.1)
[2019-01-02 18:11] VITALS: BP 151/82
[2019-01-02 18:27] VITALS: BP 162/96
[2019-01-02 18:41] VITALS: BP 169/116
[2019-01-02 22:49] LABS: HEMATOCRIT 37.1 % (42.0-52.0); HEMOGLOBIN 12.2 gm/dL (14.0-18.0)
[2019-01-03] VITALS: BP 111/83
[2019-01-03 00:17] LABS: CALCIUM 8.9 mg/dL (8.5-10.1); CREATININE 1.9 mg/dL (0.7-1.3); POTASSIUM 4.2 mmol/L (3.5-5.1)
--- NOTE | 2019-01-03 03:43 | NUR ---
patient is alert and oriented. patient has hx on poly substance abuse. patient is resting comfortably in bed. patient states pain is 10. patient laying comfortably. patient occationally dry heaves. patient is treated for nausea with zofran. patients labs improved over night. patients blood glucose is elvated treated with insulin. patient is resting comfortably in bed. wcm.
[2019-01-03 05:46] LABS: HEMATOCRIT 37.1 % (42.0-52.0); HEMOGLOBIN 12.1 gm/dL (14.0-18.0); MCH 30.2 pg (26.0-34.0); MCHC 32.6 g/dL (28.0-37.0); MCV 92.7 fL (80.0-100.0); WBC 11.8 thou/uL (4.0-11.0)
[2019-01-03 06:02] LABS: CALCIUM 8.9 mg/dL (8.5-10.1); CREATININE 1.8 mg/dL (0.7-1.3); MAGNESIUM 2.1 mg/dL (1.8-2.4); PHOSPHORUS 4.4 mg/dL (2.5-4.9); POTASSIUM 3.8 mmol/L (3.5-5.1)
[2019-01-03 06:10] VITALS: BP 110/61
[2019-01-03 07:07] LABS: URINE BLOOD 1+ (Negative); URINE CLARITY CLEAR; URINE COLOR YELLOW; URINE GLUCOSE-RANDOM* 3+ (Negative); URINE KETONES 1+ (Negative); URINE LEUKOCYTES-REFLEX NEGATIVE (Negative); URINE NITRITE-REFLEX NEGATIVE (Negative); URINE PROTEIN (DIPSTICK) 2+ (Negative); URINE SPECIFIC GRAVITY >= 1.030 (1.005-1.035); URINE UROBILINOGEN 0.2 E.U./dl (0.2-1.0)
[2019-01-03 07:09] LABS: ICTOTEST (BILI CONFIRMATORY) Negative (Negative); URINE BILIRUBIN NEGATIVE (Negative)
--- NOTE | 2019-01-03 07:21 | EKG ---
[address] [address] ELECTROCARDIOGRAM REPORT Name: OPAL FITZGERALD LUNING Room #: 444-P [facility] M.R.#: [id number] ������������������ Admission: 01/02/19 ������������������ Attend Phys: Dominique Sanchez MD Discharge: ������������������ Date of : 88 Report #: [id number] ����������������������������������������������������������������� [id number] THIS REPORT FOR: //name// [facility] ED Test Date: 2019-01-02 Test Time: 18:14:58 Pat Name: OPAL FITZGERALD Department: Room: 444 Gender: M Auger Mill Operator: binta : 1990 Requested By: Lety Lo Order Number: [id number] MD: Eleazar Maki Measurements Intervals [place] Rate: 117 P: 93 FL: 144 QRS: 96 QRSD: 89 T: -7 QT: 329 QTc: 459 Interpretive Statements Sinus tachycardia right axis deviation Borderline T abnormalities, inferior leads ST elev, probable normal early repol pattern Compared to ECG 06/03/2018 17:10:46 No significant changes Electronically Signed On 01-03-2019 7:21:12 CDT by Eleazar Maki [email or web address] ��������������������������������������������� <ELECTRONICALLY SIGNED> ���������������������������������������� By: Eleazar Maki MD, FACC ��������������������������������������������� 01/03/19 0721 1814 1814 Eleazar Maki MD, [facility] /EPI
[2019-01-03 07:34] LABS: BACTERIA-REFLEX 1-9 Few /HPF (None Seen); CRYSTALS None Seen /LPF (None Seen); HYALINE CASTS 0-3 Few /LPF (None Seen); SQUAMOUS None Seen /LPF (0-3); URINE RBC 0-2 Rare /HPF (0-2); URINE WBC-REFLEX 0-5 Rare /HPF (0-5)
[2019-01-03 07:51] VITALS: BP 149/92
[2019-01-03 11:52] VITALS: BP 186/128
--- NOTE | 2019-01-03 16:22 | NUR ---
Assumed care approx. 0700 this AM. Patient has had persistent nausea and intermittent vomiting today. Vomiting was severe this morning, but has since then resolved. PRN suppository given by patient himself for nausea that was ordered by Dr. Sanchez; IV zofran also given. Patient has also had severe abdominal pain; Dr. Sanchez ordered IV morphine and changed IV lorazepam order for severe anxiety that the patient has been experiencing. PRN IV hydralazine given for blood pressure 160's/100's at lunch time. Patient has been asleep most of the afternoon. Not much progression toward plan of care at this time.
[2019-01-03 16:28] VITALS: BP 130/73
[2019-01-03 19:40] VITALS: BP 129/69
[2019-01-03 20:12] LABS: HEMATOCRIT 36.2 % (42.0-52.0); HEMOGLOBIN 11.9 gm/dL (14.0-18.0)
[2019-01-03 23:39] LABS: CALCIUM 8.4 mg/dL (8.5-10.1); CREATININE 1.6 mg/dL (0.7-1.3); POTASSIUM 3.3 mmol/L (3.5-5.1)
--- NOTE | 2019-01-04 03:53 | NUR ---
PATIENT IS NOT ADVANCING IN HIS CARE PLAN. VITAL SIGNS STABLE WITH PATIENT HAVING MULTIPLE COMPLAINTS OF NAUSEA AND ABDOMINAL PAIN WITH BOTH TREATED WITH MEDICATIONS AND NON PHARMACOLOGICAL INTERVENTIONS. FULLY ORIENTED, PATIENT IS ABLE TO CALL APPROPRIATELY FOR NEEDS BUT SEEMS RELUCTANT TO PARTICIPATE IN CARE PLAN. PATIENT HAS BEEN UP AD [place] THROUGHOUT SHIFT INCIDENT FREE AND APPEARS STRONG AND BALANCED WHEN AMBULATING. PATIENTS STATUS CHANGED TO MED SURG DURING SHIFT AND HE WAS MOVED TO ROOM 359. CONTINUE PLAN OF CARE.
[2019-01-04 04:10] VITALS: BP 127/75
[2019-01-04 06:08] LABS: HEMATOCRIT 34.5 % (42.0-52.0); HEMOGLOBIN 11.5 gm/dL (14.0-18.0); MCH 30.6 pg (26.0-34.0); MCHC 33.3 g/dL (28.0-37.0); RBC 3.76 mil/uL (4.50-6.00); RDW 14.7 % (10.5-14.5); WBC 8.3 thou/uL (4.0-11.0)
[2019-01-04 07:51] VITALS: BP 145/98
[2019-01-04 10:06] LABS: CALCIUM 8.9 mg/dL (8.5-10.1); CREATININE 1.6 mg/dL (0.7-1.3)
--- NOTE | 2019-01-04 10:38 | NUR ---
INITIAL ASSESSMENT: JOSE reviewed chart and spoke with nursing and attending physician. Pt was admitted from home due to hypokalemia/gastroparesis. Pt with hx of noncompliance. Pt is diabetic. JOSE met with pt at bedside. Introduced role of SW. Pt is alert/orientated x 4. Pt reports he lives at home with his grandmother and family. Prior to admission, pt was independent with ADLs. Pt states he has not had Medicaid in the past. Pt states he has been working on applying for social security and has paperwork to provide to [employer] to work on his Medicaid application. Pt goes to the [facility] in [place]. Plan is for pt to discharge home when medically stable. Pt declines additional resources for discharge. Pt is hoping to discharge home later today. Pt will have transportation home. JOSE is following to assist as needed with discharge planning.
--- NOTE | 2019-01-04 11:31 | NUR ---
PT is A&OX3, PT's pain and N/V have improved, pt is tolerate breakfast today, pt's vs are stable ,pt gets up walk in hallway, but pt pt request to go home without dr order, RN has called Dr to report pt AMA , PT has signed release from responsibility for discharge.pt's L EJ piv has removed by RN . pt left hospital at 1120am.
[2019-01-04 13:52] LABS: POTASSIUM 3.7 mmol/L (3.5-5.1)
== END 2019-01-04 12:02 | disposition left against medical advice (07) | DRG 74 ==
LOC: ER 15:46 → 4S 17:58 → EROBS 17:58 → 3W 17:58 → 4S 18:25 → 3W 01-03 13:40
PROVIDERS: Emergency Medicine Emergency Medical Services; ADMIT Internal Medicine
DX: E10.43 Type 1 diabetes mellitus with diabetic autonomic (poly)neuropathy (principal); N17.9 Acute kidney failure, unspecified; G43.A0 Cyclical vomiting, in migraine, not intractable; F12.90 Cannabis use, unspecified, uncomplicated; K31.84 Gastroparesis; N18.3 Chronic kidney disease, stage 3 (moderate); I12.9 Hypertensive chronic kidney disease with stage 1 through stage 4 chronic kidney disease, or unspecified chronic kidney disease; E87.6 Hypokalemia; F14.10 Cocaine abuse, uncomplicated; E66.9 Obesity, unspecified; E10.22 Type 1 diabetes mellitus with diabetic chronic kidney disease; E86.0 Dehydration; Z53.21 Procedure and treatment not carried out due to patient leaving prior to being seen by health care provider; Z79.4 Long term (current) use of insulin; Z68.26 Body mass index [BMI] 26.0-26.9, adult; Z90.49 Acquired absence of other specified parts of digestive tract; Z87.81 Personal history of (healed) traumatic fracture; Z88.8 Allergy status to other drugs, medicaments and biological substances
CPT/HCPCS: 10100; 10879

== ENCOUNTER 2019-03-10 17:57 | Emergency (ER) | payer OTHER ==
[~2019-03-10] VITALS: Ht 172.7 cm; Wt 86.2 kg
[2019-03-10] MEDS ORDERED: REGLAN 5 MG TAB5 MG PO (18:13)
[2019-03-10 20:37] VITALS: BP 121/65
== END 2019-03-10 20:44 | disposition home or self-care (01) ==
LOC: ER 17:57
DX: M25.572 Pain in left ankle and joints of left foot (principal); R55 Syncope and collapse; I10 Essential (primary) hypertension; E10.9 Type 1 diabetes mellitus without complications; Z90.49 Acquired absence of other specified parts of digestive tract; Z88.8 Allergy status to other drugs, medicaments and biological substances; X50.0XXA Overexertion from strenuous movement or load, initial encounter; Y92.89 Other specified places as the place of occurrence of the external cause; Y93.89 Activity, other specified; Y99.8 Other external cause status

== ENCOUNTER 2019-05-12 17:06 | Inpatient (IN) | payer OTHER ==
[~2019-05-12] VITALS: Ht 172.7 cm; Wt 85.0 kg
[2019-05-12 17:06] VITALS: BP 158/100
[~2019-05-12 17:06] MED LIST changes: +REGLAN 5 MG TAB5 MG PO
[2019-05-12 18:34] LABS: ABSOLUTE NEUTROPHILS 14.2 thou/uL (1.4-8.2); BASOPHILS 0.4 % (0.0-2.0); EOSINOPHILS 0.4 % (0.0-3.0); HEMATOCRIT 35.8 % (42.0-52.0); HEMOGLOBIN 11.7 gm/dL (14.0-18.0); LYMPHOCYTES 3.8 % (24.0-44.0); MCH 29.9 pg (26.0-34.0); MCHC 32.8 g/dL (28.0-37.0); MCV 91.2 fL (80.0-100.0); MONOCYTES 4.3 % (1.0-8.0); PLATELET COUNT 280 thou/uL (150-400); POLYS 91.1 % (36.0-66.0); RBC 3.92 mil/uL (4.50-6.00); RDW 14.6 % (10.5-14.5); WBC 15.6 thou/uL (4.0-11.0)
[2019-05-12 18:40] LABS: CALCIUM 9.5 mg/dL (8.5-10.1); CREATININE 1.8 mg/dL (0.7-1.3); POTASSIUM 3.8 mmol/L (3.5-5.1)
[2019-05-12 18:46] LABS: TOTAL BILIRUBIN 0.3 mg/dL (<0.1-1.0); TOTAL PROTEIN 8.5 g/dL (6.4-8.2)
[2019-05-12 20:01] LABS: BE(vivo) -0.3 mmol/L (-2 to +3); HCO3 26.3 mmol/L (22.0-26.0); PCO2 VENOUS 51.3 mmHg (41.0-51.0); PO2 VENOUS 35.2 mmHg (35.0-45.0)
[2019-05-12 20:17] VITALS: BP 181/101
[2019-05-12 21:31] VITALS: BP 152/102
[2019-05-12 21:33] VITALS: BP 163/97
[2019-05-13 02:56] LABS: URINE BILIRUBIN NEGATIVE (Negative); URINE BLOOD 2+ (Negative); URINE CLARITY CLEAR; URINE COLOR YELLOW; URINE GLUCOSE-RANDOM* 3+ (Negative); URINE KETONES 2+ (Negative); URINE LEUKOCYTES-REFLEX NEGATIVE (Negative); URINE NITRITE-REFLEX NEGATIVE (Negative); URINE PROTEIN (DIPSTICK) 2+ (Negative); URINE SPECIFIC GRAVITY 1.025 (1.005-1.035); URINE UROBILINOGEN 0.2 E.U./dl (0.2-1.0)
[2019-05-13 03:12] LABS: BACTERIA-REFLEX None Seen /HPF (None Seen); CASTS None Seen /LPF (None Seen); CRYSTALS None Seen /LPF (None Seen); MUCUS None Seen strn/LPF (None Seen); SQUAMOUS None Seen /LPF (0-3); URINE RBC 3-10 Few /HPF (0-2); URINE WBC-REFLEX None Seen /HPF (0-5)
[2019-05-13 05:06] VITALS: BP 172/102
--- NOTE | 2019-05-13 07:56 | EKG ---
[address] [address] ELECTROCARDIOGRAM REPORT Name: AMILCAROPAL ENGLEWOOD Room #: 442-P ADM IN M.R.#: [id number] Admission: 05/12/19 Attend Phys: Grey Muhammad MD Discharge: Date of : 88 Report #: [id number] THIS REPORT FOR: //name// [facility] ED Test Date: 2019-05-12 Test Time: 17:20:09 Pat Name: OPAL FITZGERALD Department: Room: 442 Gender: M Mobile Product Manager: NICHOLAS : 1990 Requested By: Brenda Colon Order Number: [id number] MD: Eleazar Maki Measurements Intervals [place] Rate: 115 P: 94 [place]: 144 QRS: 94 QRSD: 92 T: -2 QT: 326 QTc: 451 Interpretive Statements Sinus tachycardia Borderline right axis deviation Baseline wander in lead(s) II,III,aVR,aVL,aVF,V2,V3,V4,V5,V6 Compared to ECG 01/02/2019 18:14:58 No significant changes Electronically Signed On 05-13-2019 7:55:50 [employer] EDIT[employer]IAL [employer]ODUCER by Eleazar Maki [email or web address] <ELECTRONICALLY SIGNED> By: Eleazar Maki MD, FAC 05/13/19 0755 [id number] Eleazar Maki MD, FAC /EPI
[2019-05-13 08:23] VITALS: BP 183/103
--- NOTE | 2019-05-13 09:51 | HC ---
[facility] [place] [address] CONSULTATION Name: OPAL FITZGERALD [facility] Room #: 442-P ADM IN M.R.#: [id number] Admission: 05/12/19 Attend Phys: Grey Muhammad MD Discharge: Date of : 88 Report #: [id number] THIS REPORT FOR: //name// CC: Grey Muhammad NO PCP DATE OF SERVICE: 05/13/2019 ENDOCRINE CONSULTATION NOTE CONSULTING PHYSICIAN: Dr. Zaman. REASON FOR CONSULTATION: Uncontrolled type 1 diabetes mellitus. HISTORY OF PRESENT ILLNESS: This is a 29-year-old male patient whose medical background is significant for type 1 diabetes mellitus diagnosed over 12 years ago. The patient's course has been complicated by progressive gastroparesis as well as peripheral diabetic neuropathy and chronic kidney disease. The patient notes that he would get bouts of severe nausea and vomiting in relation to his gastroparesis every month or two and that he often would have to be admitted for these episodes. The patient presented yesterday with complaints of intractable nausea and vomiting a few hours preceding presentation, which he said the usual course of his gastroparesis flares. This was accompanied by abdominal pain. The patient has not been febrile. Most recently, the patient has been maintained on a regimen of Lantus insulin 35 units q.p.m. in addition to Humalog insulin sliding scale, taking about 6 units before meals. He notes that his blood glucose values have run in the high 100s to mid 200 mg/dL range without much issue in relation to hypoglycemia. The patient also notes progressive issues with peripheral neuropathy affecting his feet. He is not known to have diabetic retinopathy or coronary artery disease. REVIEW OF SYSTEMS: CONSTITUTIONAL: Fatigue, tiredness, no fever, chills or body weight changes. HEENT: Negative for sinus pain, sinus congestion, or ear drainage. PULMONARY: Negative for shortness of breath, cough, or hemoptysis. CARDIAC: Negative for chest pain, palpitations, syncope, or presyncope. GASTROINTESTINAL: Noted for baseline gastroparesis with inactive bouts of severe nausea, vomiting, and abdominal pain. No hematemesis. CARDIAC: Negative for chest pain, palpitations, or syncope. NEUROLOGY: Baseline peripheral neuropathy. Negative for seizure activity, loss of consciousness, or severe frequent headaches. PSYCHIATRIC: Negative for delusions or hallucinations. SKIN: Negative for open ulcers, rash, active itching, or other major complaints. Otherwise, review of systems is noncontributory other than those mentioned in HPI. [address] [address] CONSULTATION Name: OPAL FITZGERALD [facility] Room #: 442-P ADM IN M.R.#: [id number] Admission: 05/12/19 Attend Phys: Grey Muhammad MD Discharge: Date of : 88 Report #: [id number] PAST MEDICAL HISTORY: 1. Type 1 diabetes mellitus. 2. Hypertension. 3. Gastroparesis. 4. Diabetic peripheral neuropathy. 5. Chronic pancreatitis. 6. Peptic ulcer disease. 7. GERD. 8. Past narcotic abuse. OUTPATIENT MEDICATIONS: Include Lantus insulin 35 units q.p.m., Humalog insulin supplemental scale 6 units t.i.d. a.c., metoclopramide 5 mg q.i.d., and pantoprazole 40 mg daily. ALLERGIES: TRAMADOL. FAMILY HISTORY: Noncontributory. SOCIAL HISTORY: The patient denies active use of tobacco, alcohol, or illicit drugs at this point in time. PHYSICAL EXAMINATION: GENERAL: Young -Zimbabwean male patient, who seems rather uncomfortable, restless, rising back and forth in bed, and seems to be in pain. VITAL SIGNS: Blood pressure 183/103 mmHg, heart rate 128 beats per minute, respiration 18 per minute, and temperature 36.7 degrees. CONSTITUTIONAL: Again, appears in pain, uncomfortable, restless. HEENT: Anicteric sclerae. Intact extraocular motions. NECK: Supple, without JVD, carotid bruits or lymphadenopathy. I do not appreciate thyromegaly. PULMONARY: Adequate air entry over both lung diaz with scattered rales. No wheezes or crackles. HEART: Regular rate and rhythm without murmurs or gallops. ABDOMEN: Soft and lax with generalized discomfort to deep palpation, but no guarding. Active bowel sounds. EXTREMITIES: Lower extremity exam negative for ankle edema. Pedal pulses are appreciated. Sensation to light touch is moderately diminished. NEUROLOGIC: Awake, alert, but seems uncomfortable. Moves all extremities freely and spontaneously, but unable to cooperate with a full neurological examination. PSYCH: In pain, uncomfortable, but able to answer my questions appropriately. LABORATORY DATA: Blood glucose values since arrival yesterday have ranged between 219 and 373 mg/dL, sodium 139, potassium 3.8, chloride 104, CO2 of 28, anion gap 7, BUN 19, creatinine 1.8. His baseline is between 1.6 and 2, AST 11. [facility] [address] [place] [address] CONSULTATION Name: OPAL [facility]GERALD [facility] Room #: 442-P ADM IN M.R.#: [id number] Admission: 05/12/19 Attend Phys: Grey Muhammad MD Discharge: Date of : 88 Report #: [id number] Amylase 32, lipase 128, total bilirubin 0.3, phosphorus 3.0, magnesium 2.0, alkaline phosphatase 132, ALT 18, total protein 8.5, albumin 4.0, and EGFR 54. Lactic acid 0.6. Total CPK 409. INR 1.0. Tox screens were positive for cocaine and opiates, specifically in December 2018. White blood count 15.6, hemoglobin 11.7, hematocrit 35.8, platelets 280. Hemoglobin A1c back in 08/2016 was 10. Historically from 2011 onward, it has ranged between 10.0 and 13.6. TSH is 0.19 in 04/2015. No current values since then. ASSESSMENT AND PLAN: 1. Type 1 diabetes mellitus. The patient gives an outlook of a historically bad control of type 1 diabetes mellitus, which has been certainly made worse by his active issues with gastroparesis. I will obtain a hemoglobin A1c to better assess his recent level of control. Furthermore, I will raise his glargine coverage to 25 units daily while maintaining a low intensity Humalog supplemental scale and scheduled insulin to be given once he is able to resume full p.o. intake. Blood glucose monitoring will commence a.c. and at bedtime. 2. Gastroparesis. This has been a severe recurring issue. He is currently managed with Zofran and IV fluid support. Further management is as per the hospital medicine team. 3. Hyperthyroidism. The patient had evidence of hyperthyroidism a few years ago. I will investigate this further with a combination of TSH and free T4. 4. Hypertension. The patient's level of blood pressure control is inadequate. He is currently under management with carvedilol. This is to be adjusted and managed as per the hospital medicine team. I reviewed the patient's clinical care notes, laboratory data, and other pertinent clinical information, past and present for more than 35 minutes. I certainly appreciate this consultation by Dr. Zaman. <ELECTRONICALLY SIGNED> By: Cade Hernandez MD 05/13/19 0951 [id number] Cade Hernandez MD /nt
[2019-05-13 09:53] LABS: HEMATOCRIT 34.1 % (42.0-52.0); HEMOGLOBIN 10.9 gm/dL (14.0-18.0); MCH 29.8 pg (26.0-34.0); RBC 3.67 mil/uL (4.50-6.00); RDW 15.3 % (10.5-14.5); WBC 12.2 thou/uL (4.0-11.0)
[2019-05-13 10:06] LABS: ALBUMIN 3.6 g/dL (3.4-5.0); CREATININE 1.7 mg/dL (0.7-1.3); MAGNESIUM 1.7 mg/dL (1.8-2.4); POTASSIUM 4.3 mmol/L (3.5-5.1); TOTAL BILIRUBIN 0.4 mg/dL (<0.1-1.0); TOTAL PROTEIN 7.9 g/dL (6.4-8.2)
[2019-05-13 11:42] LABS: AMP/METHAMP Negative (Negative); BARBITURATES Negative (Negative); BENZODIAZEPINES Negative (Negative); COCAINE Negative (Negative); METHADONE Negative (Negative); OPIATES Negative (Negative); PCP Negative (Negative)
[2019-05-13 16:54] VITALS: BP 115/77
[2019-05-13 19:04] VITALS: BP 112/74
[2019-05-14 00:06] LABS: GLYCOHEMOGLOBIN (HGB A1C) 10.9 % (4.8-5.6)
[2019-05-14 07:41] VITALS: BP 150/103
[2019-05-14 07:49] VITALS: BP 150/103
[2019-05-14 09:50] LABS: HEMATOCRIT 34.3 % (42.0-52.0); HEMOGLOBIN 11.2 gm/dL (14.0-18.0); MCH 30.1 pg (26.0-34.0); MCHC 32.7 g/dL (28.0-37.0); MCV 92.2 fL (80.0-100.0); RBC 3.72 mil/uL (4.50-6.00); RDW 15.1 % (10.5-14.5); WBC 12.3 thou/uL (4.0-11.0)
[2019-05-14 10:16] LABS: CREATININE 1.7 mg/dL (0.7-1.3); MAGNESIUM 1.9 mg/dL (1.8-2.4)
[2019-05-14 14:32] VITALS: BP 181/117
[2019-05-14 15:26] VITALS: BP 142/87
[2019-05-14 16:00] VITALS: BP 172/103
[2019-05-14 19:25] VITALS: BP 166/111
[2019-05-15 04:50] VITALS: BP 169/102
[2019-05-15 08:31] VITALS: BP 125/74
[2019-05-15 21:25] VITALS: BP 119/74
[2019-05-16 04:30] VITALS: BP 172/113
[2019-05-16 08:27] VITALS: BP 119/66
[2019-05-16 11:41] VITALS: BP 119/66
== END 2019-05-16 14:00 | disposition home or self-care (01) | DRG 74 ==
LOC: ER 17:06 → EROBS 19:48 → 4S 21:17
PROVIDERS: Internal Medicine; Physician Assistant; ADMIT Hospitalist
DX: E10.43 Type 1 diabetes mellitus with diabetic autonomic (poly)neuropathy (principal); K31.84 Gastroparesis; E10.42 Type 1 diabetes mellitus with diabetic polyneuropathy; K21.9 Gastro-esophageal reflux disease without esophagitis; N18.3 Chronic kidney disease, stage 3 (moderate); I12.9 Hypertensive chronic kidney disease with stage 1 through stage 4 chronic kidney disease, or unspecified chronic kidney disease; F12.90 Cannabis use, unspecified, uncomplicated; E10.65 Type 1 diabetes mellitus with hyperglycemia; R11.15 Cyclical vomiting syndrome unrelated to migraine; E10.22 Type 1 diabetes mellitus with diabetic chronic kidney disease; Z90.49 Acquired absence of other specified parts of digestive tract; Z87.81 Personal history of (healed) traumatic fracture; Z88.8 Allergy status to other drugs, medicaments and biological substances; Z87.11 Personal history of peptic ulcer disease; Z87.891 Personal history of nicotine dependence; Z82.49 Family history of ischemic heart disease and other diseases of the circulatory system; Z83.3 Family history of diabetes mellitus; Z91.19 Patient's noncompliance with other medical treatment and regimen; Z28.21 Immunization not carried out because of patient refusal
CPT/HCPCS: 10195

== ENCOUNTER 2019-07-08 19:22 | Inpatient (IN) | payer OTHER ==
[~2019-07-08] VITALS: Ht 172.7 cm; Wt 83.5 kg
[2019-07-08 20:18] LABS: ABSOLUTE NEUTROPHILS 17.5 thou/uL (1.4-8.2); BASOPHILS 0.5 % (0.0-2.0); EOSINOPHILS 0.1 % (0.0-3.0); HEMATOCRIT 41.6 % (42.0-52.0); HEMOGLOBIN 14.1 gm/dL (14.0-18.0); LYMPHOCYTES 5.2 % (24.0-44.0); MCH 30.6 pg (26.0-34.0); MCHC 33.9 g/dL (28.0-37.0); MCV 90.4 fL (80.0-100.0); MONOCYTES 1.7 % (1.0-8.0); PLATELET COUNT 301 thou/uL (150-400); POLYS 92.5 % (36.0-66.0); RDW 14.5 % (10.5-14.5)
[2019-07-08 20:33] LABS: CALCIUM 10.7 mg/dL (8.5-10.1); POTASSIUM 3.2 mmol/L (3.5-5.1)
[2019-07-08 20:37] LABS: ALBUMIN 4.9 g/dL (3.4-5.0); TOTAL BILIRUBIN 0.5 mg/dL (<0.1-1.0); TOTAL PROTEIN 9.4 g/dL (6.4-8.2)
[2019-07-08 21:08] LABS: URINE BILIRUBIN NEGATIVE (Negative); URINE BLOOD 3+ (Negative); URINE CLARITY CLEAR; URINE COLOR YELLOW; URINE GLUCOSE-RANDOM* 3+ (Negative); URINE KETONES 2+ (Negative); URINE LEUKOCYTES-REFLEX NEGATIVE (Negative); URINE NITRITE-REFLEX NEGATIVE (Negative); URINE PROTEIN (DIPSTICK) 3+ (Negative); URINE SPECIFIC GRAVITY >= 1.030 (1.005-1.035); URINE UROBILINOGEN 0.2 E.U./dl (0.2-1.0)
[2019-07-08 21:18] LABS: BACTERIA-REFLEX 1-9 Few /HPF (None Seen); CASTS None Seen /LPF (None Seen); CRYSTALS None Seen /LPF (None Seen); SQUAMOUS None Seen /LPF (0-3); URINE RBC 3-10 Few /HPF (0-2); URINE WBC-REFLEX None Seen /HPF (0-5)
[2019-07-08 21:24] LABS: AMP/METHAMP Negative (Negative); BARBITURATES Negative (Negative); BENZODIAZEPINES Negative (Negative); COCAINE Negative (Negative); METHADONE Negative (Negative); OPIATES Negative (Negative); PCP Negative (Negative)
[2019-07-08 22:18] VITALS: BP 186/124
[2019-07-08 22:33] VITALS: BP 186/124
[2019-07-08 23:04] VITALS: BP 186/113
[2019-07-09] VITALS (19 sets, daily range): BP systolic 114–168; BP diastolic 69–112
--- NOTE | 2019-07-09 03:12 | NUR ---
PATIENT TRANSFERRED FROM CCU 0300, REPORT RECIEVED FROM [facility], PATIENT TRANSFERRED FROM [address] [place] [address], TO [facility], UNABLE TO OBTAIN COMPLETED ADMISSION, BLOOD SUGAR CLOSELY MONITORED. WILL CONTINUE TO MONITOR.
[2019-07-09 03:48] LABS: HEMATOCRIT 37.5 % (42.0-52.0); HEMOGLOBIN 12.3 gm/dL (14.0-18.0); MCH 30.1 pg (26.0-34.0); MCV 91.4 fL (80.0-100.0); RBC 4.1 mil/uL (4.50-6.00); RDW 14.9 % (10.5-14.5); WBC 16.9 thou/uL (4.0-11.0)
[2019-07-09 03:56] LABS: CREATININE 1.7 mg/dL (0.7-1.3); MAGNESIUM 1.7 mg/dL (1.8-2.4)
[2019-07-09 04:05] LABS: POTASSIUM 4.7 mmol/L (3.5-5.1)
--- NOTE | 2019-07-09 04:44 | NUR ---
ADMISSION NOTE:RECEIVED REPORT FROM [facility] RN.PATIENT ARRIVED TO ROOM 2007 AROUND 2245.A/O.PAIN FAIRLY CONTROLLED WITH FENTANYL IV.PATIENT VERY ANXIOUS AND RESTLESS.LORAZEPAM GIVEN.BLOOD GLUCOSE WAS 289.SSI GIVEN.CT SCAN DONE.PATIENT TRANSFERRED TO ROOM 243.REPORT GIVEN TO IGNACIO PHOTOGRAPHIC COLORIST.
--- NOTE | 2019-07-09 08:05 | NUR ---
PATIENT DROWSY THROUGHT THE NIGHT AFTER TRANSFER FROM CCU, DKA PROTOCOL IMPLEMENTED. BLOOD SUGAR CLOSELY MONITORED, PATIENT DID NOT VOID SINCE TRANSFER, BLADDER SCANNED 560. REPORTED NUMBER TO ONCOMING RN. IVF PER PROTOCOL. ENDOCRINOLOGY CONSULT CALLED TO ANSWERING SERVICE. PATIENT PROGRESSING TOWARDS GOAL, BLOOD SUGAR LESS THAN 200. NO SIGN OF ACUTE DISTRESS NOTED AT THIS TIME. WILL CONTINUE TO MONITOR.
[2019-07-09 09:32] LABS: CALCIUM 9.6 mg/dL (8.5-10.1); CREATININE 1.7 mg/dL (0.7-1.3); POTASSIUM 3.8 mmol/L (3.5-5.1)
[2019-07-09 09:36] LABS: MAGNESIUM 2.5 mg/dL (1.8-2.4); PHOSPHORUS 2.9 mg/dL (2.5-4.9)
--- NOTE | 2019-07-09 09:54 | NUR ---
chart review, report from bedside nurse via phone call. pt unable to communicate and answer question currently he is very drowsy, still on insulin drip. has ankle bracelet. from chart review. pt lives with grandmother and family, he been her in the past for same this abdominal pain, nauseas and emesis. independent with adl's'. h/o past drug use. positive this visit with marijuana. wbc elevated, blood cultures pending. he used [facility] in past. pt unable to talk on phone at this time. will cont following as needed for dc needs
--- NOTE | 2019-07-09 10:30 | NUR ---
Nurse assumed care at 0700. PT is drowsy and not answering questions however he does follow commands. Insulin gtt and IVF running. At 1000 PT's blood glucose was 69. Insulin gtt was shut off per protocol and RN paged Dr. Ortiz at 1008. Nurse spoke with answering service. RN rechecked PT's blood glucose at 1015 and it was 73. RN changed PT's IVF to D5 1/2NS with 20 of KCL per DKA protocol to run at 150 mls/h. RN attempted to place a montemayor cather in PT per Dr. Rider's order. PT was bladder scanned before shift change and noted to have 560 cc of urine without ability to void. PT refused stating let me try to pee again. PT attempted twice standing on the side of bed with nurse as stand by ast. PT voided 500cc of urine. RN bladder scanned PT and noted it was 99cc. Per montemayor catheter protocol RN did not place montemayor catheter at this time. Fall precautions are in place. RN will continue to monitor.
--- NOTE | 2019-07-09 11:43 | NUR ---
Per report from shift boss PT was on contact isolation for hx of antibiotic resistant organisms. Nurse did not note this information in PT's past medical hx or provider's history and physical. No isolation order has been entered in PT's chart. Nurse spoke with Nikki Sam of infection control who also looked at PT's chart with RN and verbalized that PT may be taken out of isolation precuations. Nurse verbalized understanding. Will continue to monitor.
--- NOTE | 2019-07-09 16:22 | NUR ---
PT has progressed towards care plan goals. Dr. Zaman has made PT medsurg status. RN called report to [facility] RN who verbalized understanding. PT is aware of transfer and stated he would contact his family. RN plans to transport PT via wheelchair.
--- NOTE | 2019-07-09 19:21 | NUR ---
29 YO MALE ADMITTED FROM ICU TI 448. A&OX4, SLEEPY. IV INTACT IN L EXT JUGULAR AND R AC. ORIENTED PT TO ROOM, CALL LIGHT W/I REACH.
[2019-07-10 00:07] LABS: GLYCOHEMOGLOBIN (HGB A1C) 12.1 % (4.8-5.6)
[2019-07-10 04:30] VITALS: BP 131/91
--- NOTE | 2019-07-10 07:56 | NUR ---
ASSUMED PT CARE AT APPROX 1900.PT C/O GEN ABD PAIN,MANAGED WITH IV MED.PT UP ADLIB IN ROOM.ADEQUATE URINE OUTPUT NOTED.BG MANAGED WAS IN LOW ONE HUNDREDS.PT PROGRESSING SLOWLY TO DC .REPORT TO AM NURSE.
[2019-07-10 08:14] VITALS: BP 148/105
[2019-07-10 09:04] LABS: CALCIUM 9.2 mg/dL (8.5-10.1); CREATININE 1.5 mg/dL (0.7-1.3); MAGNESIUM 2.2 mg/dL (1.8-2.4); PHOSPHORUS 3.3 mg/dL (2.5-4.9); POTASSIUM 4.4 mmol/L (3.5-5.1)
--- NOTE | 2019-07-10 13:09 | HC ---
[facility] [place] [address] CONSULTATION Name: OPAL FITZGERALD [place] Room #: 448-P ADM IN M.R.#: [id number] Admission: 07/08/19 Attend Phys: Cezar Zaman MD Discharge: Date of : 89 Report #: [id number] THIS REPORT FOR: cc: JILLIAN Wilson family physician/PCP JILLIAN Wilson family physician/PCP Cade Hernandez MD ~ CC: [facility] physician/PCP Cezar Zaman DATE OF SERVICE: 07/09/2019 ENDOCRINE CONSULTATION NOTE CONSULTING PHYSICIAN: Dr. Muhammad. REASON FOR CONSULTATION: DKA, uncontrolled type 1 diabetes mellitus. HISTORY OF PRESENT ILLNESS: This is a 29-year-old male patient whose medical background is significant for multiple medical issues including type 1 diabetes mellitus diagnosed over 15 years ago as well as poor control, resulting in multiple DKA episodes in the past. The patient's course of diabetes has been complicated by gastroparesis. The patient explains that he has run out of his usual insulin regimen and has only been on a sporadic Humalog insulin intake over the past few days. Subsequently, he developed intractable abdominal pain, nausea and vomiting and presented to the ER where he was found to be in DKA. The patient was then admitted for further care and monitoring. The patient explains that he is maintained on a regimen of Lantus insulin 35 units daily in addition to Humalog insulin 6 units t.i.d. a.c. He denies issues with hypoglycemia, but notes that his blood glucose values are typically fairly elevated. The patient has significant difficulties with gastroparesis with bouts of severe and occasionally intractable nausea, vomiting and abdominal pain. REVIEW OF SYSTEMS: CONSTITUTIONAL: Fatigue, tiredness, but not fever or chills or body weight changes. HEENT: Negative for sore throat, sinus pain or any drainage. PULMONARY: Occasional shortness of breath and cough, but no hemoptysis. CARDIAC: No chest pain, palpitations, syncope or presyncope. GASTROINTESTINAL: Baseline gastroparesis, intractable abdominal pain, nausea, vomiting. NEUROLOGY: Negative for loss of consciousness, seizure activity or severe frequent headaches. UROLOGY: Negative for dysuria, hematuria, or frequency. [facility] [address] [place] [address] CONSULTATION Name: OPAL FITZGERALD [place] Room #: 448-P ADM IN M.R.#: [id number] Admission: 07/08/19 Attend Phys: Cezar Zaman MD Discharge: Date of : 88 Report #: [id number] PSYCHIATRIC: Negative for delusions or hallucinations. Otherwise, review of systems noncontributory other than those mentioned in HPI. ALLERGIES: TRAMADOL. MEDICATIONS: 1. Humalog insulin 6 units t.i.d. a.c., Lantus insulin 35 units at bedtime. 2. Reglan 5 mg q.i.d. PAST MEDICAL HISTORY: 1. Type 1 diabetes mellitus with multiple DKA episodes. 2. Diabetic gastroparesis. 3. History of pancreatitis. 4. Chronic kidney disease. 5. Substance abuse. FAMILY HISTORY: Noncontributory. SOCIAL HISTORY: He is a former smoker. Denies use of alcohol. He is currently under house arrest which complicated his ability to access insulin and maintain care. PHYSICAL EXAMINATION: GENERAL: Lying in bed, seems sleepy, somnolent, but arousable, not in pain or distress. VITAL SIGNS: Blood pressure is 124/76 mmHg, heart rate is 107 beats per minute, respirations 19 per minute, temperature 37.2 degrees. PSYCH: The patient is lying in bed comfortably, does not appear to be in apparent distress. HEENT: Anicteric sclerae. Intact extraocular motions. NECK: Supple, without JVD, carotid bruits or lymphadenopathy. I do not appreciate thyromegaly. CHEST: Noted for moderate entry bilaterally with scattered rales. HEART: Regular rate and rhythm without murmurs or gallops. ABDOMEN: Soft, lax with generalized discomfort on deep palpation, but no guarding. He has active bowel sounds. EXTREMITIES: Lower extremity exam is negative for ankle edema. The patient does have pedal pulses bilaterally. NEUROLOGIC: Awake, alert and oriented to time, place and person. The remainder of his examination is nonfocal. PSYCHIATRIC: Flat mood and affect, but able to answer most of my questions appropriately. LABORATORY DATA: Blood glucose on arrival was 436 mg/dL and it has been consistently under 180 mg/dL for the past several hours. Sodium 142, potassium 3.8, chloride 106, CO2 of 27, anion gap 9, initially was 20 last night, [address] [address] CONSULTATION Name: OPAL FITZGERALD [place] Room #: 448-P ADM IN M.R.#: [id number] Admission: 07/08/19 Attend Phys: Cezar Zaman MD Discharge: Date of : 88 Report #: [id number] creatinine 1.7, was 2.0 on arrival, baseline is 1.6-1.9, AST 22, amylase 32, lipase 59. Total bilirubin 0.5, direct bilirubin 0.2, calcium 9.6, phosphorus 2.9, alkaline phosphatase 131, ALT 17, total protein 9.4, albumin 4.9. EGFR 58. Lactic acid 1.3, total CPK 409, free T4 of 1.0, INR 1.0. White blood count 16.9, hemoglobin 12.3, hematocrit 37.5, platelets 258. TSH 0.151. Hemoglobin A1c in April 2019 was 10.9%. ASSESSMENT AND PLAN: 1. Diabetic ketoacidosis. The patient presented in DKA in the setting of historically uncontrolled type 1 diabetes mellitus. The patient was appropriately managed with the [facility] DKA protocol with IV insulin, IV fluids and has a reverse the metabolic abnormalities and results his DKA as per his lab data this morning. 2. Type 1 diabetes mellitus. Uncontrolled as per his reported blood glucose values as well as his multiple hemoglobin A1c measures throughout the past few years. There are significant compliance issues pertaining to this outlook. The patient was counseled at length about the importance of achieving and maintaining adequate glycemic control to prevent diabetic complications which he verbalized good understanding of. Based on his recorded intravenous insulin needs, I will convert the patient to a combination of Lantus insulin 30 units daily, Humalog insulin 10 units with meals in addition to Humalog supplemental scale low intensity. Blood glucose monitoring will commence a.c. and at bedtime and further adjustments to his regimen will be made as necessary. 3. Chronic kidney disease. The patient appears to have worsened baseline kidney function studies on arrival, likely due to dehydration, but seems to have settled down to his usual baseline kidney function studies at this point in time. 4. Gastroparesis. This has been a significant background issue with frequent exacerbations and intractable nausea and vomiting seems to be controlled on his usual regimen of Reglan 5 mg t.i.d. He is to keep the same regimen. I have reviewed the patient's clinical care notes, laboratory data and other pertinent clinical information past and present for over 35 minutes. I certainly appreciate this consultation by Dr. Muhammad. <ELECTRONICALLY SIGNED> By: Cade Hernandez MD 07/10/19 1309 [id number] Cade Hernandez MD /nt
--- NOTE | 2019-07-10 14:28 | NUR ---
CARE TEAM INDICATED THAT PT IS TO HAVE EGD TOMORROW AM. PT IS AMBULATING INDEPENDENTLY THROUGHOUT HALLS. CM TO FOLLOW INIDCATED WITH DC PLANNING.
[2019-07-10 16:52] VITALS: BP 135/88
[2019-07-10 19:15] VITALS: BP 147/101
--- NOTE | 2019-07-10 20:00 | NUR ---
PT A&OX4. IV IN R AC INFILTRATED, IV TEAM HAS REPLACED PIV. PT HAS HAD N/V THROUGHOUT THE DAY. SPENT MOST OF THE DAY IN THE SHOWER. WILL HAVE EGD TOMOARROW WILL BE NPO AFTER MN.
--- NOTE | 2019-07-10 20:06 | NUR ---
1900 ASSUMED CARE OF PT AFTER BEDSIDE REPORT. 1944 ASSESSMENT COMPLETED, PT WRITHING IN PAIN, FENTANYL GIVEN PER JUN, PT NAUSEA AND VOMITING, PT NOW NPO SECONDARY TO VOMITING, BOWEL SOUNDS ACTIVE X 4 ABD SOFT BUT PAINFUL TO PALPATION IN ALL 4 QYUADS. WILL CONTINUE TO MONITOR WITH HOURLY ROUNDING.
[2019-07-10 23:58] VITALS: BP 161/113
[2019-07-11 01:12] VITALS: BP 142/82
[2019-07-11 07:33] VITALS: BP 142/82
[2019-07-11 08:35] LABS: CALCIUM 9.7 mg/dL (8.5-10.1); CREATININE 1.6 mg/dL (0.7-1.3); POTASSIUM 3.8 mmol/L (3.5-5.1)
--- NOTE | 2019-07-11 10:27 | NUR ---
PT CARE ASSUMED AT 0700. A&Ox4. PT WALKING THE HALLWAYS FOR PAIN RELIEF. NPO SINCE MIDNIGHT AND AWAITING EGD. PT IS VERY OVERLY DRAMATIC AND JUMPING WITH HIS BODY WHILE LAYING DOWN IN BED AND ROLLING AND MOANING VERY LOUDLY. ACHS. SHORT ACTING INSULIN HELD DUE TO NPO. LANTUS GIVEN. NEEDING OCCULT STOOL SAMPLE. PT VOMITTED THIS AM, ZOFRAN GIVEN. PAIN IS NOT VERY WELL TOLERATED WITH HIS MEDICATION ON BOARD. CALL LIGHT IN REACH. WILL CONTINUE TO MONITOR.
[2019-07-11 11:27] VITALS: BP 142/82
[2019-07-11 16:19] VITALS: BP 142/82
== END 2019-07-11 17:50 | disposition home or self-care (01) | DRG 871 ==
LOC: ER 19:22 → ICU 22:03 → EROBS 22:03 → 2N 22:30 → ICU 07-09 03:28 → 4S 07-09 18:00
PROVIDERS: Emergency Medicine; Nurse Practitioner Family; ADMIT Internal Medicine
DX: A41.9 Sepsis, unspecified organism (principal); E11.10 Type 2 diabetes mellitus with ketoacidosis without coma; N17.9 Acute kidney failure, unspecified; R65.20 Severe sepsis without septic shock; N18.3 Chronic kidney disease, stage 3 (moderate); E11.22 Type 2 diabetes mellitus with diabetic chronic kidney disease; E86.0 Dehydration; D72.829 Elevated white blood cell count, unspecified; E11.42 Type 2 diabetes mellitus with diabetic polyneuropathy; I12.9 Hypertensive chronic kidney disease with stage 1 through stage 4 chronic kidney disease, or unspecified chronic kidney disease; E11.65 Type 2 diabetes mellitus with hyperglycemia; E11.43 Type 2 diabetes mellitus with diabetic autonomic (poly)neuropathy; K31.84 Gastroparesis; F19.10 Other psychoactive substance abuse, uncomplicated; Z90.49 Acquired absence of other specified parts of digestive tract; Z88.8 Allergy status to other drugs, medicaments and biological substances; Z83.3 Family history of diabetes mellitus; Z87.891 Personal history of nicotine dependence; Z91.14 Patient's other noncompliance with medication regimen
CPT/HCPCS: 10081; 10100; 10195

== ENCOUNTER 2019-07-14 00:22 | Emergency (ER) | payer OTHER ==
[~2019-07-14] VITALS: Ht 175.3 cm; Wt 85.3 kg
[2019-07-14 00:57] LABS: ABSOLUTE NEUTROPHILS 5.7 thou/uL (1.4-8.2); BASOPHILS 0.7 % (0.0-2.0); EOSINOPHILS 1.2 % (0.0-3.0); HEMATOCRIT 37.3 % (42.0-52.0); HEMOGLOBIN 12.5 gm/dL (14.0-18.0); MCH 30.8 pg (26.0-34.0); MCHC 33.7 g/dL (28.0-37.0); MCV 91.4 fL (80.0-100.0); MONOCYTES 8.2 % (1.0-8.0); PLATELET COUNT 235 thou/uL (150-400); POLYS 58.9 % (36.0-66.0); RBC 4.08 mil/uL (4.50-6.00); RDW 14.9 % (10.5-14.5); WBC 9.6 thou/uL (4.0-11.0)
[2019-07-14 01:02] LABS: CALCIUM 9.2 mg/dL (8.5-10.1); CREATININE 1.5 mg/dL (0.7-1.3); POTASSIUM 3.1 mmol/L (3.5-5.1)
[2019-07-14 01:10] LABS: ALBUMIN 4.3 g/dL (3.4-5.0); TOTAL BILIRUBIN 0.4 mg/dL (<0.1-1.0); TOTAL PROTEIN 7.8 g/dL (6.4-8.2)
[2019-07-14 03:48] VITALS: BP 117/77
== END 2019-07-14 03:51 | disposition home or self-care (01) ==
LOC: ER 00:22
PROVIDERS: Emergency Medicine
DX: R11.2 Nausea with vomiting, unspecified (principal); G89.29 Other chronic pain; R10.9 Unspecified abdominal pain; E87.6 Hypokalemia; E10.22 Type 1 diabetes mellitus with diabetic chronic kidney disease; I12.9 Hypertensive chronic kidney disease with stage 1 through stage 4 chronic kidney disease, or unspecified chronic kidney disease; N18.3 Chronic kidney disease, stage 3 (moderate); Z91.19 Patient's noncompliance with other medical treatment and regimen; Z90.49 Acquired absence of other specified parts of digestive tract; E10.40 Type 1 diabetes mellitus with diabetic neuropathy, unspecified; Z79.899 Other long term (current) drug therapy; Z79.4 Long term (current) use of insulin; Z88.8 Allergy status to other drugs, medicaments and biological substances

== ENCOUNTER 2019-08-11 10:00 | Inpatient (IN) | payer OTHER ==
[~2019-08-11] VITALS: Ht 172.7 cm; Wt 72.6 kg
[~2019-08-11 10:00] MED LIST changes: -HUMALOG100 UNIT/1
[2019-08-11 10:01] VITALS: BP 190/110
[2019-08-11 10:30] LABS: ABSOLUTE NEUTROPHILS 7.6 thou/uL (1.4-8.2); BASOPHILS 0.5 % (0.0-2.0); HEMATOCRIT 37.8 % (42.0-52.0); HEMOGLOBIN 12.7 gm/dL (14.0-18.0); LYMPHOCYTES 20.5 % (24.0-44.0); MCH 30.9 pg (26.0-34.0); MCHC 33.6 g/dL (28.0-37.0); MONOCYTES 5.8 % (1.0-8.0); PLATELET COUNT 260 thou/uL (150-400); POLYS 72.2 % (36.0-66.0); RBC 4.11 mil/uL (4.50-6.00); RDW 14.5 % (10.5-14.5); WBC 10.5 thou/uL (4.0-11.0)
[2019-08-11 10:45] LABS: ALBUMIN 4.3 g/dL (3.4-5.0); DIRECT BILIRUBIN < 0.1 mg/dL (<0.1-0.2); SGOT 12 U/L (15-37); SGPT 17 U/L (30-65); TOTAL BILIRUBIN 0.4 mg/dL (<0.1-1.0); TOTAL PROTEIN 8.1 g/dL (6.4-8.2)
[2019-08-11 10:52] LABS: ANION GAP 11 mmol/L (7-16); BUN 22 mg/dL (7-18); CHLORIDE 105 mmol/L (98-107); CO2 29 mmol/L (21-32); CREATININE 1.7 mg/dL (0.7-1.3); POTASSIUM 3.7 mmol/L (3.5-5.1); SODIUM 145 mmol/L (136-145)
[2019-08-11 10:54] LABS: CALCIUM 9.3 mg/dL (8.5-10.1); GLUCOSE 141 mg/dL (74-106)
--- NOTE | 2019-08-11 11:40 | EKG ---
[facility] [place] [address] ELECTROCARDIOGRAM REPORT Name: AMILCAROPAL MEJIA VIVIENNE Room #: REG MMarizolRMarizol#: [id number] Admission: 08/11/19 Attend Phys: Discharge: Date of : 88 Report #: [id number] THIS REPORT FOR: cc: JILLIAN - No family physician/PCP FAM - No family physician/PCP Clint Garza MD ~ THIS REPORT FOR: //name// [facility] ED Test Date: 2019-08-11 Test Time: 11:07:30 Pat Name: OPAL FITZGERALD Department: Room: Gender: Office Mover: HERB Garland : 1990 Requested By: Radha Duarte Order Number: [id number] MD: Clint Garza Measurements Intervals [place] Rate: 85 P: 85 VA: 154 QRS: 94 QRSD: 90 T: 38 QT: 377 QTc: 449 Interpretive Statements Sinus rhythm Borderline right axis deviation Compared to ECG 05/12/2019 17:20:09 Sinus tachycardia no longer present Electronically Signed On 08-11-2019 11:38:39 CDT by Clint Garza [email or web address] <ELECTRONICALLY SIGNED> By: Clint Garza MD 08/11/19 1138 1107 1107 Clint Garza MD /EPI
[2019-08-11 12:22] LABS: URINE BILIRUBIN NEGATIVE (Negative); URINE BLOOD 2+ (Negative); URINE CLARITY CLEAR; URINE COLOR YELLOW; URINE GLUCOSE-RANDOM* 3+ (Negative); URINE KETONES NEGATIVE (Negative); URINE LEUKOCYTES-REFLEX NEGATIVE (Negative); URINE NITRITE-REFLEX NEGATIVE (Negative); URINE PROTEIN (DIPSTICK) 2+ (Negative); URINE UROBILINOGEN 0.2 E.U./dl (0.2-1.0)
[2019-08-11 12:30] LABS: SQUAMOUS 0-3 Few /LPF (0-3)
[2019-08-11 12:31] LABS: AMP/METHAMP Negative (Negative); BACTERIA-REFLEX None Seen /HPF (None Seen); BARBITURATES Negative (Negative); BENZODIAZEPINES Negative (Negative); CASTS None Seen /LPF (None Seen); COCAINE Negative (Negative); CRYSTALS None Seen /LPF (None Seen); METHADONE Negative (Negative); OPIATES Negative (Negative); PCP Negative (Negative); URINE WBC-REFLEX None Seen /HPF (0-5)
[2019-08-11] MEDS ORDERED: ZOFRAN ODT4 MG PO (13:58)
[2019-08-11 15:16] VITALS: BP 185/98
[2019-08-11 16:16] VITALS: BP 182/102
[2019-08-11 16:21] VITALS: BP 196/98
--- NOTE | 2019-08-11 17:33 | NUR ---
PT ARRIVED TO FLOOR AROUND 1600. ALERT AND ORIENTED. ACTIVLEY VOMITING UPON ARRIVAL. PT SWEATING AND SHAKING, STATES "COLD" BP HIGH, OTHERWISE VSSA/RA. PIV IN THE RIGHT EJ DRESSING CHANGED UPON ARRIVAL DUE TO SWEATING AND VOMIT ON IT. IVF STARTED PER ORDER WITHOUT COMPLICATIONS. PT REFUSING TO ANSWER ADMISSION QUESTIONS AT TIME OF ARRIVAL. ALLOW PT TO REST FOR A LITTLE BIT, BUT UNDERSTANDS THE DATATBASE NEEDS TO BE DONE. BLOOD SUGAR STABLE. WILL GIVE PRN MEDS ORDERED. WILL CONTINUE TO MONITOR
[2019-08-11 19:54] VITALS: BP 192/99
[2019-08-12 04:59] VITALS: BP 120/74
--- NOTE | 2019-08-12 07:34 | NUR ---
ASSUMED PT CARE AT 2300. PT SLEEPING WHEN THIS NURSE ARRIVE. AROUND 0300, PT HAD TAKEN A SHOWER, DRANK SOME WATER AND FELT NAUSEATED. PT BEGAN VOMITING AGAIN, IV MEDS GIVEN. FELL BACK ASLEEP AND SLEPT THE REST OF THE SHIFT. BP WAS WNL THIS AM. REPORT PASSED TO DAY NURSEBC.
[2019-08-12 08:24] VITALS: BP 143/89
[2019-08-12 14:52] LABS: HEMATOCRIT 38.2 % (42.0-52.0); HEMOGLOBIN 12.7 gm/dL (14.0-18.0); MCH 30.3 pg (26.0-34.0); MCHC 33.2 g/dL (28.0-37.0); MCV 91.5 fL (80.0-100.0); RBC 4.18 mil/uL (4.50-6.00); RDW 14.8 % (10.5-14.5)
[2019-08-12 15:03] LABS: CALCIUM 8.8 mg/dL (8.5-10.1); CREATININE 1.5 mg/dL (0.7-1.3); POTASSIUM 3.7 mmol/L (3.5-5.1)
[2019-08-12 17:33] VITALS: BP 148/102
[2019-08-12 17:36] VITALS: BP 148/103
--- NOTE | 2019-08-12 19:25 | NUR ---
VSS-AFEBRILE. LUNGS CLEAR-ROOM AIR. TOLERATED PO FLUIDS THIS SHIFT WITH NO FURTHER N/V. CONTINUES TO C/O ABDOMINAL PAIN THAT IS WELL RELIEVED WITH IV MORPHINE. OOB AD LAURI-STEADY ON FEET. CALLS APPROPRIATELY FOR ANY NEEDED ASSISTANCE.
[2019-08-12 19:55] VITALS: BP 124/81
--- NOTE | 2019-08-13 05:56 | NUR ---
ASSESSMENT COMPLETED. PT WAS CALM SLEEPING AT THE START OF SHIFT. STARTED C/O PAIN AND NAUSEA AT ABOUT MIDNOC. PT WAS PACING AROUND IN ROOM AND ENDED UP LOOSING HIS R JUGULAR IV SOMEHOW.PT IS OBSERVED DRINKING WATER AND CONSEQUENTLY VOMITING. HE COMES OUT TO GET WATER FOR HIMESELF FROM THE ICE MACHINE. SEVERAL NURSES INCLUDING ER NURSE ATTEMPTED TO GET ANOTHER PIV BUT UNABLE. RECEIVED ORDERS FOR ANTIEMETIC SUPPOSITORY. WILL CALL IV TEAM . PT ALSO BEEN GETTING RELIEF FROM TAKING HOT SHOWERS.
[2019-08-13 07:51] VITALS: BP 139/84
--- NOTE | 2019-08-13 15:07 | NUR ---
Assumed care of pt at 0700. Pt a&ox4. C/o pain and nausea. Pt EJ had been accidentally removed overnight. IV team placed peripheral IV. Medications administered and fluids infusing. Upon checking on pt again, his IV was found removed again. IV team paged again. Call light within reach. Will continue to monitor.
[2019-08-13 15:15] VITALS: BP 119/97
[2019-08-13 16:16] LABS: CALCIUM 9.7 mg/dL (8.5-10.1); MAGNESIUM 1.7 mg/dL (1.8-2.4); POTASSIUM 3.7 mmol/L (3.5-5.1)
[2019-08-13 16:26] LABS: CREATININE 2.6 mg/dL (0.7-1.3)
[2019-08-13 16:57] LABS: HEMATOCRIT 41.7 % (42.0-52.0); HEMOGLOBIN 13.7 gm/dL (14.0-18.0); MCH 30.3 pg (26.0-34.0); RBC 4.53 mil/uL (4.50-6.00); WBC 13.6 thou/uL (4.0-11.0)
[2019-08-13 20:23] VITALS: BP 112/88
--- NOTE | 2019-08-14 03:05 | NUR ---
PT SEEMS TO BE HAVING A BETTER NIGHT. HE IS REQUIRING PAIN MEDS AND ANTI EMETICS ATLEAST Q4HRS. I OBSERVED PATIENT QUIETLY WALKING THE HALLWAYS AT SOME POINT IN MIDDLE OF NIGHT. HE HAS MOMENTS OF LOUD WRETCHING. IVF INFUSING. HE IS STILL DRINKING EXCESS WATER AND CHEWING ON ICE.AFEBRILE.WILL CONTINUE WITH POC TILL EOS.
[2019-08-14 07:24] VITALS: BP 186/122
[2019-08-14 15:45] VITALS: BP 125/92
--- NOTE | 2019-08-14 17:54 | NUR ---
ASSUMED CARE OF THE PT AT 0700. PT IS AMBULATORY AND NOT A FALL RISK. PAIN CONTROLLED BY PAIN MEDS, SEE EMAR. PTS BS HAS RUN LOW IN THE AFTERNOON AND PM, GAVE PT GLUCOSE TABS AND APPLEJUICE. PT TOLERATED CHICKEN BROTH, POPSICLE AND WATER WELL, NO N/V. C/O ABDOMINAL PAIN, DUE TO FLATUS. R AC IV DRY AND INTACT. BED IN LOWEST POSITION AND CALL LIGHT IS WITHIN REACH. WILL CONTINUE TO MONITOR THE PT.
[2019-08-14 19:19] VITALS: BP 146/112
[2019-08-15 03:28] VITALS: BP 129/90
--- NOTE | 2019-08-15 03:54 | NUR ---
PT CARE ASSUMED AT 1915 WITH PT IN BED.PT IS UP AD LAURI.PT IS A/O X4.PT IS ACCUCHECK ACHS.PT C/O OF NAUSEA AND VOMITING.ZOFRAN ADMINISTERED NO WITH RELIEF.PT BLOOD SUGAR LOW AND WAS GIVEN APPLE JUICE AND START OF SHIFT.BLOOD SUGAR WAS RECHECK AND IOT WAS NORMAL.BLOOD SUGATR WA LOW AT 0300 AND APPLE JUICE GIVEN AND RECHECKED AN DIT WAS NORMAL.IV ACCESS ON RT AC WITH NS AT 75CC/HR.PT C/O PAIN AND PAIN MANAGED WITH MORPHINE IWTH PARTIAL RELIEF.WILL CONTINUE TO MONITOR PER PROTOCOL
[2019-08-15 07:26] VITALS: BP 149/112
[2019-08-15 10:02] LABS: HEMATOCRIT 36.6 % (42.0-52.0); HEMOGLOBIN 12.5 gm/dL (14.0-18.0); MCHC 34.2 g/dL (28.0-37.0); MCV 90.7 fL (80.0-100.0); RBC 4.03 mil/uL (4.50-6.00); RDW 14.4 % (10.5-14.5); WBC 9.3 thou/uL (4.0-11.0)
--- NOTE | 2019-08-15 10:07 | HC ---
[facility] [place] [address] CONSULTATION Name: OPAL FITZGERALD [place] Room #: 447-P ADM IN M.R.#: [id number] Admission: 08/11/19 Attend Phys: Matias Vega MD Discharge: Date of : 88 Report #: [id number] THIS REPORT FOR: cc: JILLIAN Wilson family physician/PCP JILLIAN Wilson family physician/PCP Cade Hernandez MD ~ CC: JILLIAN physician/PCP Matias Vega DATE OF SERVICE: 08/14/2019 ENDOCRINE CONSULTATION NOTE CONSULTING PHYSICIAN: Dr. Vega. REASON FOR CONSULTATION: Uncontrolled type 1 diabetes mellitus. HISTORY OF PRESENT ILLNESS: This is a 29-year-old male patient whose medical background is noted for the main issues of type 1 diabetes mellitus, gastroparesis with intractable episodic nausea and vomiting as well as chronic kidney disease. The patient has been admitted multiple times in the past due to uncontrollable nausea, vomiting and associated fluctuations in blood glucose control. The patient is maintained typically on a regimen of Lantus insulin 35 units daily in addition to Humalog insulin 6 units t.i.d. a.c. The patient notes that he has been unable to take and obtain his insulin consistently due to being on house arrest and notes that his blood glucose values have run much higher than usual, given this unavailability of insulin. He has not had issues with hypoglycemia in the past few weeks. The patient has chronic kidney disease with a baseline creatinine of 1.4-1.7. Also, the patient is known to have gastroparesis with frequent episodes of intractable nausea and vomiting, many of which have required medical attention in the inpatient setting in the past. He is also known to have chronic pancreatitis. REVIEW OF SYSTEMS: CONSTITUTIONAL: Fatigue, tiredness, but negative for fever, chills or body weight changes. HEENT: Negative for sore throat, sinus pain or ear drainage. PULMONARY: Negative for shortness of breath, cough or hemoptysis. CARDIAC: Negative for chest pain, palpitations, syncope or presyncope. GASTROINTESTINAL: Baseline issues with gastroparesis, frequent issues with nausea and vomiting including the past few days. No hematemesis or melena. NEUROLOGY: Negative for loss of consciousness, seizure activity, but noted for [facility] [address] [place] [address] CONSULTATION Name: OPAL FITZGERALD [place] Room #: 447-P [facility] IN M.R.#: [id number] Admission: 08/11/19 Attend Phys: Matias Vega MD Discharge: Date of : 88 Report #: [id number] intermittent issues with headaches and baseline peripheral neuropathy. PSYCHIATRIC: Negative for delusions or hallucinations. Noted for substance abuse, especially THC, otherwise, review of systems noncontributory other than those mentioned in HPI. PAST MEDICAL HISTORY: 1. Type 1 diabetes mellitus. 2. Chronic pancreatitis. 3. Hypertension. 4. Diabetic gastroparesis. 5. Chronic kidney disease stage 3. 6. GERD. PAST SURGICAL HISTORY: Cholecystectomy, appendectomy, hernial repair. OUTPATIENT MEDICATIONS: Include Tylenol q. 4 hours p.r.n., Protonix 40 mg daily, Lantus insulin 35 units at bedtime, Humalog insulin 6 units t.i.d. a.c. ALLERGIES: TRAMADOL. FAMILY HISTORY: Noncontributory. SOCIAL HISTORY: The patient is currently under house arrest. He is an ex-smoker. He denies use of alcohol. PHYSICAL EXAMINATION: GENERAL: Young -Latvian male patient who is not in apparent pain or distress. VITAL SIGNS: Blood pressure is 186/122, that was at 112/88 mmHg earlier; heart rate is 118; respiration rate is 20; temperature is 36.6 Celsius. CONSTITUTIONAL: The patient is lying in bed, appears comfortable, not in apparent distress. HEENT: Anicteric sclerae. Intact extraocular motions. NECK: Supple, without JVD. No carotid bruits, no thyromegaly. CHEST: Noted for moderate entry bilaterally with scattered rales, rhonchi, but no wheeze or crackles. HEART: Regular rate and rhythm without murmurs or gallops. ABDOMEN: Soft, lax. No guarding, but with generalized discomfort on deep palpation. EXTREMITIES: Lower extremity exam is noted for trace ankle edema bilaterally. Scattered crusted superficial ulcers. The patient has an anklet on his right ankle. NEUROLOGIC: Awake, alert and oriented to time, place and person. The remainder of his examination is nonfocal other than for slight sensory deficits over both lower extremities. [address] [address] CONSULTATION Name: OPAL FITZGERALD [place] Room #: 447-P [facility] IN M.R.#: [id number] Admission: 08/11/19 Attend Phys: Matias Vega MD Discharge: Date of : 89 Report #: [id number] PSYCH: Flat mood and affect, but interactive, able to answer most of my questions appropriately. LABORATORY RESULTS: Blood glucose just before lunch was at 57, earlier today at 98, before that last night at 184. The patient presented with a blood glucose of 159. He had an outlying high of 305. On 08/11 after dinner, he had a blood glucose of 47. Otherwise, sodium 125, potassium 3.7, chloride 87, CO2 of 21, anion gap 17. BUN 35. Creatinine 2.6, again his baseline is 1.4-1.7. AST 12, amylase 32, lipase 70, total bilirubin 0.4, direct bilirubin less than 0.1, calcium 9.7, phosphorus 3.0, magnesium 1.7, alkaline phosphatase 92, ALT 17, total protein 8.1, albumin 4.3, EGFR 35. Lactic acid 1.9. Total CPK 409. Troponin negative. White blood count 13.6, hemoglobin 13.7, hematocrit 41.7, platelets 295. Hemoglobin A1c on 07/08/2019 was 12.1%. ASSESSMENT AND PLAN: 1. Type 1 diabetes mellitus. The patient has an uncontrolled baseline judging by his reported blood glucose values as well as by his recent hemoglobin A1c of 12.1%. There is the major challenge of inconsistency surrounding insulin intake due to lapses and intake and poor access as the patient remains under house arrest. The patient was counseled extensively about the need to achieve and maintain adequate glycemic control to avoid diabetic complications in the future. The main remark so far into his hospital stay has been his tendency for hypoglycemia, which occasionally was severe on the current insulin intake. This implies that the current dose of Lantus is excessive given his current level of activity, food intake and overall circumstances. That said, I would drop his Lantus insulin intake to 28 units daily while maintaining food coverage for full meals at 6 units t.i.d. a.c. and maintaining Humalog supplemental scale coverage at a low intensity. Blood glucose monitoring will commence a.c. and at bedtime and further therapeutic adjustments will be made accordingly. 2. Gastroparesis. This has been a long-term issue and has been rather disruptive to his overall control due to episodic dehydration and the need for inpatient care. The patient is currently on Reglan at 10 mg q. 6 hours as well as Zofran 4 mg q. 4 hours p.r.n. This is to continue as per the hospital medicine team. 3. Chronic kidney disease. The patient has a baseline creatinine of 1.4-1.7 and currently presents with a creatinine of 2.6, likely precipitated by prerenal azotemia due to dehydration. I am hopeful to see this reversed as the patient resuscitates his fluid deficits. I certainly appreciate this consultation by Dr. Vega. <ELECTRONICALLY SIGNED> By: Cade Hernandez MD 08/15/19 1007 1201 [id number] Cade Hernandez MD /nt
[2019-08-15 10:12] LABS: CREATININE 1.9 mg/dL (0.7-1.3)
[2019-08-15 10:26] LABS: POTASSIUM 2.8 mmol/L (3.5-5.1)
[2019-08-15 16:00] VITALS: BP 137/93
--- NOTE | 2019-08-15 19:36 | NUR ---
PT CARE ASSUMED AT 0700. A&Ox4. PT WALKS UP AND DOWN THE HALLWAY FOR PAIN MANAGMENT WITH PAIN MEDICATION. CRITICAL POTASSIUM OF 2.1. MD INFORMED AND ORDERS GIVEN. RECHECK POTASSIUM AT 1930. NAUSEA WITH NO VOMITTING TODAY. IV PATENT WITH NO REDNESS OR EDEMA. ACHS WITH NO COVERAGE NEEDED. PER ENDOCRINOLGY CONTINUE WITH LANTUS BUT HOLD HUMALOG IF INDICATED. BLOOD SUGARS HAVE DROPPED LOW 47 TODAY THAT WILL GO BACK UP WITH APPLEJUICE. ENDO AWARE AND WILL CONTINUE TO FOLLOW. CALL LIGHT IN REACH. WILL CONTINUE TO MONITOR.
[2019-08-15 20:08] VITALS: BP 124/79
[2019-08-15 21:05] LABS: CALCIUM 8.4 mg/dL (8.5-10.1); CREATININE 1.9 mg/dL (0.7-1.3)
[2019-08-15 21:07] LABS: POTASSIUM 4.2 mmol/L (3.5-5.1)
--- NOTE | 2019-08-16 03:06 | NUR ---
Pt care assumed with pt walking in the hallway at 1915.Pt is a/o x4 and up ad staci.Pt is accucheck achs and on lantus and ssi.Pt had low potassium during the day and rechecked and it was normal.Pt wanted to leave and nurse spoke with him and he decided to stay.Pt c/o pain and was given morphine.Pt c/o of nausea and no vomiting.Will continue to Monitor per poc
[2019-08-16 04:38] VITALS: BP 128/76
[2019-08-16 05:29] LABS: HEMATOCRIT 41.4 % (42.0-52.0); MCHC 33.9 g/dL (28.0-37.0); MCV 91.5 fL (80.0-100.0); RBC 4.52 mil/uL (4.50-6.00); RDW 14.4 % (10.5-14.5); WBC 13.3 thou/uL (4.0-11.0)
[2019-08-16 05:42] LABS: CREATININE 1.8 mg/dL (0.7-1.3); MAGNESIUM 2.3 mg/dL (1.8-2.4)
[2019-08-16 05:48] LABS: POTASSIUM 3.2 mmol/L (3.5-5.1)
[2019-08-16 07:00] VITALS: BP 157/106
[2019-08-16] MEDS ORDERED: BENTYL 10 MG CA10 M1 PO (09:53)
[2019-08-16 09:58] VITALS: BP 157/106
[2019-08-16] MEDS ORDERED: HUMALOG100 UNIT/1 SUBQ (10:37)
[2019-08-16] MEDS ORDERED: TOUJEO MAX300 UNIT/1 SUBQ (10:37)
[2019-08-16] MEDS ORDERED: ZOFRAN ODT4 MG PO (11:04)
--- NOTE | 2019-08-16 11:19 | NUR ---
PT WILL BE DISCHARGED TO [facility] TODAY...IV REMOVED...RX CALLED TO PHARMACY...QUESTIONS ANSWERED..
== END 2019-08-16 12:09 | disposition home or self-care (01) | DRG 74 ==
LOC: ER 10:00 → EROBS 15:01 → 4S 15:30
PROVIDERS: Emergency Medicine; Internal Medicine; ADMIT Hospitalist
DX: E10.43 Type 1 diabetes mellitus with diabetic autonomic (poly)neuropathy (principal); N17.9 Acute kidney failure, unspecified; E10.649 Type 1 diabetes mellitus with hypoglycemia without coma; N18.3 Chronic kidney disease, stage 3 (moderate); R11.15 Cyclical vomiting syndrome unrelated to migraine; F12.10 Cannabis abuse, uncomplicated; E10.22 Type 1 diabetes mellitus with diabetic chronic kidney disease; K21.9 Gastro-esophageal reflux disease without esophagitis; K31.84 Gastroparesis; E87.6 Hypokalemia; Z90.49 Acquired absence of other specified parts of digestive tract; Z09 Encounter for follow-up examination after completed treatment for conditions other than malignant neoplasm; Z87.81 Personal history of (healed) traumatic fracture; Z88.8 Allergy status to other drugs, medicaments and biological substances; Z87.891 Personal history of nicotine dependence; Z91.19 Patient's noncompliance with other medical treatment and regimen
CPT/HCPCS: 10195

== ENCOUNTER 2019-09-05 23:22 | Inpatient (IN) | payer OTHER ==
[~2019-09-05] VITALS: Ht 172.7 cm; Wt 82.1 kg
[~2019-09-05 23:22] MED LIST changes: +BENTYL 10 MG CA10 M1 PO
[2019-09-05 23:25] VITALS: BP 169/110
[2019-09-06] VITALS (7 sets, daily range): BP systolic 113–187; BP diastolic 72–112
[2019-09-06 00:02] LABS: ABSOLUTE NEUTROPHILS 6.8 thou/uL (1.4-8.2); BASOPHILS 0.2 % (0.0-2.0); HEMATOCRIT 34.4 % (42.0-52.0); HEMOGLOBIN 11.6 gm/dL (14.0-18.0); LYMPHOCYTES 15.7 % (24.0-44.0); MCHC 33.6 g/dL (28.0-37.0); MCV 92.4 fL (80.0-100.0); MONOCYTES 3.6 % (1.0-8.0); PLATELET COUNT 250 thou/uL (150-400); POLYS 79.5 % (36.0-66.0); RBC 3.72 mil/uL (4.50-6.00); RDW 15.2 % (10.5-14.5); WBC 8.6 thou/uL (4.0-11.0)
[2019-09-06 00:22] LABS: CALCIUM 9.4 mg/dL (8.5-10.1); CREATININE 1.6 mg/dL (0.7-1.3); POTASSIUM 3.4 mmol/L (3.5-5.1)
[2019-09-06 00:28] LABS: ALBUMIN 4.2 g/dL (3.4-5.0); TOTAL BILIRUBIN 0.3 mg/dL (<0.1-1.0)
[2019-09-06 15:41] LABS: CALCIUM 8.8 mg/dL (8.5-10.1); CREATININE 1.4 mg/dL (0.7-1.3); POTASSIUM 3.8 mmol/L (3.5-5.1)
[2019-09-07 07:27] VITALS: BP 128/89
[2019-09-07 09:21] LABS: AMP/METHAMP Negative (Negative); BARBITURATES Negative (Negative); BENZODIAZEPINES Negative (Negative); COCAINE Negative (Negative); METHADONE Negative (Negative); OPIATES Negative (Negative); PCP Negative (Negative)
[2019-09-07] MEDS ORDERED: REGLAN 10 MG TA10 MG PO (15:17)
[2019-09-07] MEDS ORDERED: ZESTRIL5 MG PO (15:17)
[2019-09-07] MEDS ORDERED: PROTONIX 20 MG20 MG PO (15:17)
[2019-09-07] MEDS ORDERED: ZOFRAN ODT4 MG PO (15:17)
[2019-09-07 17:28] VITALS: BP 157/97
[2019-09-07 17:32] VITALS: BP 157/97
== END 2019-09-07 18:35 | disposition home or self-care (01) | DRG 74 ==
LOC: ER 23:22 → EROBS 09-06 01:15 → 4W 09-06 01:34
PROVIDERS: Emergency Medicine; Internal Medicine; Nurse Practitioner Family; ADMIT Hospitalist
DX: E10.43 Type 1 diabetes mellitus with diabetic autonomic (poly)neuropathy (principal); K86.1 Other chronic pancreatitis; G92 Toxic encephalopathy; N18.3 Chronic kidney disease, stage 3 (moderate); E10.22 Type 1 diabetes mellitus with diabetic chronic kidney disease; E10.65 Type 1 diabetes mellitus with hyperglycemia; I12.9 Hypertensive chronic kidney disease with stage 1 through stage 4 chronic kidney disease, or unspecified chronic kidney disease; K31.84 Gastroparesis; K26.9 Duodenal ulcer, unspecified as acute or chronic, without hemorrhage or perforation; Z90.49 Acquired absence of other specified parts of digestive tract; Z87.81 Personal history of (healed) traumatic fracture; Z88.8 Allergy status to other drugs, medicaments and biological substances; Z87.891 Personal history of nicotine dependence; Z79.4 Long term (current) use of insulin
CPT/HCPCS: 10040

== ENCOUNTER 2019-09-29 18:59 | Inpatient (IN) | payer OTHER ==
[~2019-09-29] VITALS: Ht 172.7 cm; Wt 90.7 kg
[~2019-09-29 18:59] MED LIST changes: +PROTONIX 20 MG20 MG PO; +ZESTRIL5 MG PO
[2019-09-29 19:07] VITALS: BP 128/100
[2019-09-29 19:30] LABS: ABSOLUTE NEUTROPHILS 6.8 thou/uL (1.4-8.2); BASOPHILS 0.6 % (0.0-2.0); HEMATOCRIT 37.5 % (42.0-52.0); HEMOGLOBIN 12.3 gm/dL (14.0-18.0); LYMPHOCYTES 19.4 % (24.0-44.0); MCH 30.8 pg (26.0-34.0); MCHC 32.8 g/dL (28.0-37.0); MCV 94.2 fL (80.0-100.0); PLATELET COUNT 236 thou/uL (150-400); RBC 3.98 mil/uL (4.50-6.00); RDW 15.4 % (10.5-14.5); WBC 9.4 thou/uL (4.0-11.0)
[2019-09-29 19:38] LABS: CALCIUM 9.2 mg/dL (8.5-10.1)
[2019-09-29 19:39] LABS: POTASSIUM 2.9 mmol/L (3.5-5.1)
[2019-09-29 19:44] LABS: ALBUMIN 4.2 g/dL (3.4-5.0); TOTAL BILIRUBIN 0.4 mg/dL (0.2-1.0); TOTAL PROTEIN 7.6 g/dL (6.4-8.2)
[2019-09-29 19:54] LABS: BE(vivo) -4.5 mmol/L (-2 to +3); HCO3 19.2 mmol/L (22.0-26.0); PCO2 VENOUS 31.2 mmHg (41.0-51.0); PO2 VENOUS 66.3 mmHg (35.0-45.0)
[2019-09-29 21:54] VITALS: BP 160/102
[2019-09-29 22:20] VITALS: BP 155/86
[2019-09-29 22:37] VITALS: BP 158/94
--- NOTE | 2019-09-29 23:07 | NUR ---
PT PRESENTED FROM ED ON BED. PT TRANSFERED SELF WITH STEADY GAIT TO ROOM BED. PT BELCHING NO EMESIS OR DRY HEAVING. PT OPENED EYES MINIMALLY, ANSWERED QUESTIONS NIMINALLY OR TURNED HEAD YES OR NO. PT WOULD NOT ANSWER MANY OF THE ADMISSION QUESTIONS AND RETURNED TO SLEEPING. IVF INTACT. BED ALARM ON. PT HAD VERBALIZED WANTING TO SHOWER BUT EDUCATED HE WAS CURRENTLY NOT STABLE ENOUGH TO SHOWER AND PT RETURNED TO SLEEP. PT VERBALIZED UNDERSTANDING OF WHEN HIS NEXT ATIVAN AND ZOFRAN WERE DUE.
--- NOTE | 2019-09-30 03:18 | NUR ---
PT HAS HAD INTERMITTENT EPISODES OF N/V THROUGHOUT THE NIGHT AND RETURNS TO SLEEP, PT HAS BEEN PROVIDED PRN MEDICATIONS THEY ARE AVAILABLE.
[2019-09-30 04:42] VITALS: BP 161/102
[2019-09-30 05:15] LABS: CALCIUM 8.9 mg/dL (8.5-10.1); CREATININE 1.6 mg/dL (0.7-1.3); MAGNESIUM 1.8 mg/dL (1.8-2.4); POTASSIUM 4.2 mmol/L (3.5-5.1)
--- NOTE | 2019-09-30 07:49 | EKG ---
[facility] [place] [address] ELECTROCARDIOGRAM REPORT Name: OPAL FITZGERALD [place] Room #: 208-P ADM IN M.R.#: [id number] Admission: 09/29/19 Attend Phys: Cezar Zaman MD Discharge: Date of : 88 Report #: [id number] THIS REPORT FOR: cc: FAM - No family physician/PCP FAM - No family physician/PCP Eleazar Maki MD [facility] THIS REPORT FOR: //name// [facility] ED Test Date: 2019-09-29 Test Time: 19:24:25 Pat Name: OPAL FITZGERALD Department: Room: 208 Gender: M Truant Officer: ERICK : 1990 Requested By: George Srivastava Order Number: [id number] MD: Eleazar Maki Measurements Intervals [place] Rate: 106 P: 81 AL: 149 QRS: 90 QRSD: 86 T: 0 QT: 345 QTc: 459 Interpretive Statements Sinus tachycardia Borderline right axis deviation Baseline wander in lead(s) II,aVR Compared to ECG 08/11/2019 11:07:30 Heart rate has increased Electronically Signed On 09-30-2019 7:48:19 CDT by Eleazar Maki [email or web address] <ELECTRONICALLY SIGNED> By: Eleazar Maki MD, [facility] 09/30/19 0748 23 23 Eleazar Maki MD, FAC /EPI
[2019-09-30 08:30] VITALS: BP 186/105
[2019-09-30 12:30] VITALS: BP 133/70
[2019-09-30 17:30] VITALS: BP 186/106
[2019-09-30 17:32] LABS: AMP/METHAMP Negative (Negative); BARBITURATES Negative (Negative); BENZODIAZEPINES Negative (Negative); COCAINE Negative (Negative); METHADONE Negative (Negative); OPIATES Negative (Negative); PCP Negative (Negative)
--- NOTE | 2019-09-30 18:08 | NUR ---
ASSUMMED PT CARE AT APPROXIMATELY 0700. PT A&O X4. ASSESSMENT CHARTED. FALL PRECAUTIONS IN PLACE. PT DENIES HAVING CHEST PAIN. PT DENIES HAVING SOB. PT STATED HE HAD ABM PAIN. PT RECEIVED ANALGESICS. PT STATED ANALGESICS DID NOT HELP C PAIN. INFORMED DR. RANDALL. DR RANDALL ENTERED NEW ANALGESICS. PT STATED ANALGESICS HELPED RELIEVE PAIN. INFORMED DR. RANDALL OF PT'S INCREASED EMESIS OUTPUT. DR RANDALL STATED UNDERSTANDING AND ENTERED NEW ORDERS. EDUCATED PT ABOUT POC. PT STATED UNDERSTANDING. PT AMBULATES STEADY/INDEPENDENT. PT COMFORTABLE. PT DENIES HAVING FURTHER CONCERNS. VITAL SIGNS STABLE. BLOOD SUGARS STABLE.
[2019-09-30 18:39] VITALS: BP 178/106
[2019-09-30 19:51] VITALS: BP 147/88
[2019-10-01 05:05] VITALS: BP 130/86
--- NOTE | 2019-10-01 07:47 | NUR ---
PATIENTS CARES WERE ASSUMED AT SHIFT CHANGE. PATIENT WAS ASSESED AND MED LIST WAS ASSESSED. ORDER WAS OBTAINED TO D/C [facility] FOR HIS IBS DUE TO THIS MED WILL INCREASE NAUSEA AND VOMITING. PATIENT HAD NO EMISIS THIS SHIFT HE DID SLEEP WELL AND SEVEN PLUS HOURS. HOUR ROUNDS WERE DONE. THE BED IS IN A LOW AND LOCKED POSITION.
[2019-10-01 08:30] VITALS: BP 169/101
[2019-10-01 10:41] VITALS: BP 144/98
--- NOTE | 2019-10-01 11:43 | HC ---
[facility] [place] [address] CONSULTATION Name: OPAL FITZGERALD [place] Room #: 208-P ADM IN M.R.#: [id number] Admission: 09/29/19 Attend Phys: Cezar Zaman MD Discharge: Date of : 88 Report #: [id number] THIS REPORT FOR: cc: JILLIAN Wilson family physician/PCP JILLIAN Wilson family physician/PCP Cade Hernandez MD ~ CC: [facility] physician/PCP eCzar Zaman DATE OF SERVICE: 09/30/2019 ENDOCRINE CONSULTATION NOTE CONSULTING PHYSICIAN: Dr. Zaman. REASON FOR CONSULTATION: Type 1 diabetes mellitus. HISTORY OF PRESENT ILLNESS: This is a 29-year-old male patient whose medical background is significant for multiple medical issues including type 1 diabetes mellitus, hypertension, renal insufficiency as well as gastroparesis. The patient has been admitted multiple times over the past 2 years due to bouts of worsening gastroparesis and intractable nausea and vomiting, which would typically be associated with significant disturbances in his blood glucose values. Moreover, he has had significant compliance difficulties with insulin some due to socioeconomic issues. The patient has had type 1 diabetes mellitus for many years and has been maintained most recently on a combination of Lantus insulin 24 units daily in addition to Humalog insulin 6 units with meals. He reports adequate control with this regimen at home with fluctuations that do not usually associated with severe hyperglycemia or frequent hypoglycemia. The patient is not known to have documented diabetic retinopathy, but does have baseline renal insufficiency with his creatinine in the 1.5-2.0 range. He does have intermittent difficulties with peripheral diabetic neuropathy and has significant gastroparesis that results in episodic, intractable nausea and vomiting leading to multiple hospitalizations as noted above. The patient has gastroparesis that is currently managed with Bentyl, Zofran, metoclopramide, Protonix, but with episodic flares, which he presents this time with as well reporting intractable nausea and vomiting. The patient is hypertensive and is maintained on a regimen of lisinopril 5 mg daily and reports adequate control on that as well. REVIEW OF SYSTEMS: CONSTITUTIONAL: Fatigue, tiredness, but not fever or chills or body weight changes. [facility] [address] [place] [address] CONSULTATION Name: OPAL FITZGERALD [place] Room #: 208-P [facility] IN M.R.#: [id number] Admission: 09/29/19 Attend Phys: Cezar Zaman MD Discharge: Date of : 88 Report #: [id number] HEENT: Negative for sore throat, sinus pain or ear drainage. PULMONARY: Occasional shortness of breath and cough, but no hemoptysis. CARDIAC: Negative for chest pain, palpitations, syncope or presyncope. GASTROINTESTINAL: Noted for baseline gastroparesis, currently presents with intractable nausea, vomiting and abdominal discomfort. NEUROLOGY: Intermittent issues with peripheral numbness and tingling, but not seizure activity or severe frequent headaches. DERMATOLOGY: Negative for rash, ulceration, discoloration or other major abnormalities. Otherwise, review of systems noncontributory other than those mentioned in HPI. PAST MEDICAL HISTORY: 1. Type 1 diabetes mellitus. 2. Diabetic neuropathy. 3. Renal insufficiency. 4. Hypertension. 5. Gastroparesis. 6. Previous episodes of pancreatitis. 7. Peptic ulcer disease. 8. History of substance abuse. ACTIVE MEDICATIONS: Include Toujeo insulin 24 units daily, Humalog insulin 6 units with meals, Bentyl 10 mg q.i.d., lisinopril 5 mg daily, metoclopramide 10 mg at bedtime, pantoprazole 20 mg daily, Zofran 4 mg q. 6 hours p.r.n. ALLERGIES: TRAMADOL. FAMILY HISTORY: Noncontributory. SOCIAL HISTORY: The patient is an ex-smoker. Denies any current active use of tobacco. He is currently unemployed and disabled. PHYSICAL EXAMINATION: GENERAL: The patient is sleepy, but arousable, appears tired and lethargic. VITAL SIGNS: Blood pressure is 186/105 mmHg, heart rate is 111 beats per minute, respirations 20 per minute, temperature 36.9 degrees Celsius. Constitutional, the patient is lying in bed, appears lethargic, tired, but not in apparent pain or distress. HEENT: Anicteric sclerae. Intact extraocular motions. NECK: Supple, without thyromegaly, no JVD. CHEST: Noted for moderate air entry bilaterally with scattered rales. No wheezes. HEART: Regular rate and rhythm without murmurs or gallops. ABDOMEN: Soft, lax. No guarding. Active bowel sounds. EXTREMITIES: Lower extremity exam is negative for ankle edema. The patient has good pedal pulses bilaterally. [address] [address] CONSULTATION Name: OPAL FITZGERALD [place] Room #: 208-P [facility] IN M.R.#: [id number] Admission: 09/29/19 Attend Phys: Cezar Zaman MD Discharge: Date of : 88 Report #: [id number] NEUROLOGIC: Lethargic tired, but arousable, unable to cooperate with a full neurological examination. PSYCHIATRIC: Flat mood and affect. LABORATORY RESULTS: Blood glucose on arrival was 168, currently at 325 mg/dL. Sodium 139, potassium 4.2, chloride 100, CO2 of 23, anion gap 16, BUN 23, creatinine 1.6 and was 2.0 on arrival. Amylase 32, lipase 75, total bilirubin 0.4, calcium 8.9, magnesium 1.8, alkaline phosphatase 69, ALT 18, total protein 7.6, albumin 4.2. EGFR 62. Lactic acid 1.9. INR 1.0. White blood count 9.4, hemoglobin 12.3, hematocrit 37.5, platelets 236. The patient had a hemoglobin A1c on 09/06/2019 that was at 10.0%, on 07/08/2019 it was 12.1%. ASSESSMENT AND PLAN: 1. Type 1 diabetes mellitus. The patient has an uncontrolled baseline with major difficulties pertaining to frequent therapeutic interruptions in the setting of frequent episodic nausea and vomiting as well as noncompliance in addition to challenging socioeconomic circumstances. During his last admission, the patient seems to make progress with his insulin regimen as his hemoglobin A1c dropped about 2 points. On arrival, the patient had within target range of blood glucose value that has quickly risen since then. I would like to maintain the current dose of Lantus 24 units daily and presented at this time, so as to avoid delays and lags in basal insulin coverage for this patient. I will utilize low-intensity Humalog sliding scale a.c. and at bedtime as well as maintain his Humalog coverage for meals at 6 units per meal; however, only if he eats a full meal, which he has not so far due to lethargy and intractable nausea. Blood glucose monitoring will commence a.c. and at bedtime and further therapeutic adjustments will be made according to his blood glucose pattern. 2. Hypertension. The patient's level of blood pressure control was adequate on arrival, but has been marginal since then. I will defer to the Hospital Medicine team and further changes in this regard. 3. Renal insufficiency. The patient had worsening of his baseline serum creatinine arrival, probably in relation to dehydration. He seems to have done better and have come closer to his baseline creatinine with hydration since admission. We will keep hydrating as needed and monitoring during this hospital stay. 4. Gastroparesis. This is a recurring issue for the patient and has resulted in significant therapeutic disruptions for diabetes, alterations in blood glucose levels, dehydration, and multiple hospital admissions. The patient is currently on metoclopramide and Bentyl and seems to be improving gradually. I will defer ongoing management to the Hospital Medicine team. [address] [address] CONSULTATION Name: OPAL FITZGERALD [place] Room #: 208-P [facility] IN M.R.#: [id number] Admission: 09/29/19 Attend Phys: Cezar Zaman MD Discharge: Date of : 88 Report #: [id number] I have reviewed the patient's clinical care notes, laboratory data, and other pertinent clinical information from the current as well as previous hospital stays. My review went on for over 35 minutes in addition to my encounter with the patient. I certainly appreciate this consultation by Dr. Zaman. <ELECTRONICALLY SIGNED> By: Cade Hernandez MD 10/01/19 1143 1207 1557 Cade Hernandez MD /nt
[2019-10-01 14:05] LABS: HEMATOCRIT 36.1 % (42.0-52.0); MCHC 33.3 g/dL (28.0-37.0); MCV 93.3 fL (80.0-100.0); RBC 3.87 mil/uL (4.50-6.00); RDW 14.5 % (10.5-14.5); WBC 14.6 thou/uL (4.0-11.0)
--- NOTE | 2019-10-01 14:05 | NUR ---
LAB DRAWN PER IV TEAM. NO COMPLICATIONS AND PATIENT TOLERATED WELL.
[2019-10-01 14:14] LABS: CALCIUM 8.2 mg/dL (8.5-10.1); CREATININE 1.4 mg/dL (0.7-1.3); MAGNESIUM 1.6 mg/dL (1.8-2.4); POTASSIUM 3.5 mmol/L (3.5-5.1)
[2019-10-01 15:59] VITALS: BP 144/110
--- NOTE | 2019-10-01 16:14 | NUR ---
Have attempted to reach patient in room via phone. RN also placed phone by patient but no answer. Patient familiar to casemgt. He resides at home with grandmother. He admits with gastroparesis may be due to marijuana. 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 He has [place] medicaid. casemgt cont to attempt tp reach patient for dc planning.
--- NOTE | 2019-10-01 18:00 | NUR ---
ASSUMMED PT CARE AT APPROXIAMTELY 0700. PT A&O X4. ASSESSMENT CHARTED. FALL PRECAUTIONS IN PLACE. PT DENIES HAVING CHEST PAIN. PT DENIES HAVING SOB. PT STATED HE HAD NAUSEA AND ABD PAIN. PT RECEIVED ANALGESICS. PT STATED ANALGESICS. HELPED RELIEVE PAIN. PT AMBULATING IN ROOM. PT AMBULATES STEADY/INDEPENDENT. PT EMESIS AMOUNT DECREASED COMPARED TO YESTERDAY DAY SHIFT. PT TOLERATED CLR LIQUIDS. INFORMED DR. RANDALL OF LOW MG. REPLACEMENT OF MG. PT COMFORTABLE IN BED. PT DENIES HAVING FURTHER CONCERNS.
[2019-10-01 19:40] VITALS: BP 146/98
[2019-10-02 04:43] VITALS: BP 174/114
--- NOTE | 2019-10-02 06:35 | NUR ---
PATIENTS CARES WERE ASSUMED AT SHIFT CHANGE. PATIENT WAS ASESSED AND MEDS WERE PASSED. PATIENT CONTINUES TO HAVE HYPER EMESIS. NOTHING APPERS TO GET NAUSEA SUBSIDE. PATIENT HAS BEEN A DIABETIC SINCE AGE [age] YEARS OLD. FOR THE CARE OF THE PATIENT A KUB OR EVEN AN MRI WITH CONTRAST MAY REVEAL A MORE DEFINITIVE CAUSE. HOURLY ROUNDIING. THE LISSA IN A LOW AND LOCKED POSITION
[2019-10-02 08:22] VITALS: BP 139/108
[2019-10-02 10:16] LABS: HEMATOCRIT 36.3 % (42.0-52.0); HEMOGLOBIN 12.1 gm/dL (14.0-18.0); MCH 30.8 pg (26.0-34.0); MCHC 33.3 g/dL (28.0-37.0); MCV 92.6 fL (80.0-100.0); RBC 3.92 mil/uL (4.50-6.00); RDW 14.5 % (10.5-14.5); WBC 12.6 thou/uL (4.0-11.0)
[2019-10-02 10:29] LABS: CALCIUM 8.6 mg/dL (8.5-10.1); CREATININE 1.3 mg/dL (0.7-1.3); MAGNESIUM 1.9 mg/dL (1.8-2.4); POTASSIUM 3.7 mmol/L (3.5-5.1)
[2019-10-02 12:15] VITALS: BP 167/113
[2019-10-02 15:17] VITALS: BP 116/72
--- NOTE | 2019-10-02 17:30 | NUR ---
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 EDUCATED PATIENT THAT HIS HR WAS TOO HIGH AND THE DR WILL WANT TO TAKE A LOOK AT THAT BEFORE HE GOES HOME. PATIENT TOLD NURSE THAT HIS HR WAS NOT IMPORTANT AT THIS TIME. HE HAS BEEN NOTED AMBULATING THE CHO. HE IS ALERT ORIENTED X4. NO COMPLAIN OF PAIN AT THIS TIME. WILL CONT WITH PLAN OF CARE.
--- NOTE | 2019-10-03 07:42 | EKG ---
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: Gary LEE : 1990 Requested By: Matias Vega Order Number: [id number] MD: Eleazar Maki Measurements Intervals [place] Rate: 120 P: 87 VT: 135 QRS: 99 QRSD: 89 T: -13 QT: 329 QTc: 465 Interpretive Statements Sinus tachycardia Right axis deviation Borderline T abnormalities, inferior leads Compared to ECG 09/29/2019 19:24:25 No significant change was found Electronically Signed On 10-03-2019 7:32:02 CDT by Eleazar Maki [email or web address] <ELECTRONICALLY SIGNED> By: Eleazar Maki MD, [facility] 10/03/19 0732 1645 1645 Eleazar Maki MD, FAC /EPI
== END 2019-10-02 17:40 | disposition left against medical advice (07) | DRG 74 ==
LOC: ER 18:59 → 2N 21:38 → EROBS 21:38 → 2N 22:20
PROVIDERS: Emergency Medicine; Nurse Practitioner Family; ADMIT Internal Medicine; ATTEND Internal Medicine
DX: E10.43 Type 1 diabetes mellitus with diabetic autonomic (poly)neuropathy (principal); N17.9 Acute kidney failure, unspecified; N18.3 Chronic kidney disease, stage 3 (moderate); E10.22 Type 1 diabetes mellitus with diabetic chronic kidney disease; K31.84 Gastroparesis; E87.6 Hypokalemia; E10.40 Type 1 diabetes mellitus with diabetic neuropathy, unspecified; K21.9 Gastro-esophageal reflux disease without esophagitis; I12.9 Hypertensive chronic kidney disease with stage 1 through stage 4 chronic kidney disease, or unspecified chronic kidney disease; F12.90 Cannabis use, unspecified, uncomplicated; Z90.49 Acquired absence of other specified parts of digestive tract; Z88.8 Allergy status to other drugs, medicaments and biological substances; Z87.11 Personal history of peptic ulcer disease; Z87.891 Personal history of nicotine dependence; Z83.3 Family history of diabetes mellitus; Z91.19 Patient's noncompliance with other medical treatment and regimen; Z53.29 Procedure and treatment not carried out because of patient's decision for other reasons
CPT/HCPCS: 10081

== ENCOUNTER 2019-11-01 08:42 | Inpatient (IN) | payer OTHER ==
[~2019-11-01] VITALS: Ht 172.7 cm; Wt 77.1 kg
[2019-11-01 08:43] VITALS: BP 153/106
[2019-11-01 10:04] LABS: HEMOGLOBIN 13.5 gm/dL (14.0-18.0); MCH 31.2 pg (26.0-34.0); MCHC 33.7 g/dL (28.0-37.0); MCV 92.5 fL (80.0-100.0); RBC 4.33 mil/uL (4.50-6.00); RDW 14.3 % (10.5-14.5); WBC 23.8 thou/uL (4.0-11.0)
[2019-11-01 10:14] LABS: ANION GAP 13 mmol/L (7-16); BUN 21 mg/dL (7-18); CALCIUM 10.3 mg/dL (8.5-10.1); CHLORIDE 97 mmol/L (98-107); CO2 26 mmol/L (21-32); GLUCOSE 161 mg/dL (74-106); POTASSIUM 3.6 mmol/L (3.5-5.1); SODIUM 136 mmol/L (136-145)
[2019-11-01 10:25] LABS: ALBUMIN 4.8 g/dL (3.4-5.0); LIPASE 44 U/L (73-393); SGOT 28 U/L (15-37); SGPT 24 U/L (30-65); TOTAL BILIRUBIN 0.5 mg/dL (0.2-1.0); TROPONIN-I <0.06 ng/mL (<0.06)
[2019-11-01 16:40] VITALS: BP 153/106
[2019-11-01 17:41] VITALS: BP 153/106
--- NOTE | 2019-11-01 20:11 | NUR ---
PT ARRIVED FROM ED FOR NAUSEA AND VOMITING. PT SLEEPING. IV NO LONGER PANTENT. CALL LIGHT AND PERSONAL ITEMS IN REACH. ADMISSION EDUCATION AND HISTORY COMPETED-
[2019-11-01 23:30] VITALS: BP 116/75
--- NOTE | 2019-11-02 02:47 | NUR ---
PT IS UP AD LAURI. CONTINUES DRY HEAVING AND VOMITING. PT GIVEN ZOFRAN PRN WITH MILD EFFECTS.CONTINUES ON IV FLUIDS.ACCUCHECK AT 2258 WAS 232,4 UNITS GIVEN. WILL CONTINUE WITH THE CURRENT IV FLUIDS TILL ITS COMPLETED THEN WILL EVALUATE PER ANTWAN MCGRATH.GIVEN BENADRYL FOR INSOMNIA BUT HE IS BEEN AWAKE ON AND OFF.
[2019-11-02 07:45] VITALS: BP 158/114
[2019-11-02 11:16] VITALS: BP 141/117
[2019-11-02 12:27] LABS: URINE BLOOD 3+ (Negative); URINE CLARITY CLEAR; URINE COLOR YELLOW; URINE GLUCOSE-RANDOM* 1+ (Negative); URINE KETONES 1+ (Negative); URINE LEUKOCYTES-REFLEX NEGATIVE (Negative); URINE NITRITE-REFLEX NEGATIVE (Negative); URINE PROTEIN (DIPSTICK) 3+ (Negative); URINE SPECIFIC GRAVITY >= 1.030 (1.005-1.035); URINE UROBILINOGEN 0.2 E.U./dl (0.2-1.0)
[2019-11-02 12:29] LABS: ICTOTEST (BILI CONFIRMATORY) Negative (Negative); URINE BILIRUBIN NEGATIVE (Negative)
[2019-11-02 13:12] LABS: SQUAMOUS 0-3 Few /LPF (0-3)
[2019-11-02 13:13] LABS: HYALINE CASTS 0-3 Few /LPF (None Seen); MUCUS >6 Heavy strn/LPF (None Seen)
[2019-11-02 13:14] LABS: AMORPHOUS URATES Few /LPF (None Seen); FINE GRANULAR CASTS 4-10 Moderate /LPF (None Seen); URINE RBC 3-10 Few /HPF (0-2); URINE WBC-REFLEX 0-5 Rare /HPF (0-5)
[2019-11-02 13:15] LABS: BACTERIA-REFLEX None Seen /HPF (None Seen)
[2019-11-02 13:17] LABS: AMP/METHAMP Negative (Negative); BARBITURATES Negative (Negative); BENZODIAZEPINES Negative (Negative); COCAINE Negative (Negative); METHADONE Negative (Negative); OPIATES Negative (Negative); PCP Negative (Negative)
--- NOTE | 2019-11-02 14:26 | NUR ---
V.S. 98.2 20 112 141/107 O2 SAT =99 % RA ORDERED UA AND DRUG SCREEN URINE OBTAINED AND SENT TO LAB. ONE TIME ORDER FOR MORPHINE 2 MG IV PUSH WAS GIVEN. ALSO ATIVAN PO GIVEN PT HAS L JUGULAR IV ACSESS. PT WANTS IV PAIN MEDS TO BE SCEDULED. PT IS COOPERATIVE WITH CARE.
[2019-11-02 15:20] VITALS: BP 121/96
--- NOTE | 2019-11-02 15:51 | NUR ---
V.S. 97.6 22 106 121/96 O2 SAT = 100 % RA
[2019-11-02 16:23] LABS: RBC 4.46 mil/uL (4.50-6.00)
[2019-11-02 16:24] LABS: ABSOLUTE NEUTROPHILS 17.2 thou/uL (1.4-8.2); BASOPHILS 0.8 % (0.0-2.0); HEMATOCRIT 42.3 % (42.0-52.0); HEMOGLOBIN 14.1 gm/dL (14.0-18.0); LYMPHOCYTES 8.2 % (24.0-44.0); MCH 31.6 pg (26.0-34.0); MCHC 33.3 g/dL (28.0-37.0); MCV 94.8 fL (80.0-100.0); MONOCYTES 3.9 % (1.0-8.0); POLYS 87.1 % (36.0-66.0); RDW 14.5 % (10.5-14.5); WBC 19.7 thou/uL (4.0-11.0)
[2019-11-02 16:33] LABS: CALCIUM 8.4 mg/dL (8.5-10.1); CREATININE 1.9 mg/dL (0.7-1.3); MAGNESIUM 1.7 mg/dL (1.8-2.4); PHOSPHORUS 4.2 mg/dL (2.5-4.9)
--- NOTE | 2019-11-02 20:35 | NUR ---
PT UP AMBULATING THE HALLS. PT WAS GIVEN PRN PAIN MED IV PUSH. ALSO ATIVAN PO EARLIER. PT TOOK SHOWER THIS AFTERNOON.
[2019-11-02 21:40] VITALS: BP 166/109
--- NOTE | 2019-11-03 01:00 | NUR ---
PT CONTINUES TO C/O ABDOMINAL PAIN. HE IS GETTING MORPHINE IVP-BUT REPORTS ITS NOT WORKING. PT TAKING LONG SHOWERS. I REMINDED HIM TO BE CAREFUL ABOUT LOOSING HIS PIV TO LEFT JUGULAR. PATIENT OBSERVED PACING UP AND DOWN THE HALLWAYS AND GETTING ICE CHIPS. PT ALSO DRINKING WATER-EDUCATION PROVIDED ABOUT TAKING IT EASY ON THE WATER INTAKE-EMESIS IS ALL WATERY. PT IS AFEBRILE.ROCEPHIN STARTED.PT DENIES SOA OR CHEST PAIN. WILL CONTINUE WITH POC TILL EOS.
[2019-11-03 07:23] VITALS: BP 165/117
[2019-11-03 13:17] LABS: ABSOLUTE NEUTROPHILS 11.6 thou/uL (1.4-8.2); BASOPHILS 0.2 % (0.0-2.0); HEMATOCRIT 38.2 % (42.0-52.0); HEMOGLOBIN 12.9 gm/dL (14.0-18.0); LYMPHOCYTES 12.5 % (24.0-44.0); MCH 31.5 pg (26.0-34.0); MCHC 33.9 g/dL (28.0-37.0); MCV 92.8 fL (80.0-100.0); MONOCYTES 7.3 % (1.0-8.0); PLATELET COUNT 267 thou/uL (150-400); RBC 4.11 mil/uL (4.50-6.00); RDW 14.5 % (10.5-14.5); WBC 14.5 thou/uL (4.0-11.0)
[2019-11-03 13:37] LABS: ALBUMIN 4.2 g/dL (3.4-5.0); CREATININE 1.5 mg/dL (0.7-1.3); MAGNESIUM 1.7 mg/dL (1.8-2.4); POTASSIUM 3.3 mmol/L (3.5-5.1); TOTAL BILIRUBIN 0.9 mg/dL (0.2-1.0)
[2019-11-03 15:55] VITALS: BP 124/88
--- NOTE | 2019-11-03 15:57 | NUR ---
PT A&OX4. IV INTACT IN R FA. AMBULATES SELF IN ROOM/CHO. NO N/V AT THIS TIME STATES PAIN AT 02/24. WITNESSED PT CRY WHILE TALKING ON HIS PHONE STATES "MY STOMACH HURTS SO BAD" PT PACES IN ROOM AND HAS TAKEN A LONG SHOWER. WILL CONT POC.
[2019-11-03 19:18] VITALS: BP 146/105
[2019-11-03 20:15] VITALS: BP 146/105
[2019-11-04 03:59] VITALS: BP 125/79
--- NOTE | 2019-11-04 05:11 | NUR ---
PT AOX4. PT REPORTS PAIN IN ABDOMEN. PT USING HEAT THERAPY TO PROMOTE RELIEF. PT RECEIVING PRN IV MORPHINE Q4HR. PT NOTED TO BE ANXIOUS AND RESTLESS WITH PAIN. PT RECEIVING PRN PO ATIVAN QID. PT TOLERATING PO INTAKE OF FLUIDS AND CLEAR LIQUID DIET. PT NOTED TO WALK AROUND UNIT INDEPENDENTLY. PT TOOK SHOWER TO HELP WITH ABDOMINAL PAIN. PT RESTING AFTERWARDS. FREQUENT REPOSITIONING ENCOURAGED. PT NOTED TO SHIFT INDEPENDENTLY WHILE IN BED. ENCOURAGED PT TO NOTIFY STAFF FOR ALL NEEDS. CALL LIGHT WITHIN REACH, BED ALARM ON, BED IN LOWEST POSITION, WILL CONTINUE TO MONITOR.
[2019-11-04 08:00] VITALS: BP 114/68
[2019-11-04 09:18] LABS: CALCIUM 7.5 mg/dL (8.5-10.1); CREATININE 1.4 mg/dL (0.7-1.3); POTASSIUM 3.4 mmol/L (3.5-5.1)
--- NOTE | 2019-11-04 11:02 | NUR ---
PT PROGRESSED TO SOFT FIBER RESTRICTED DIET. TOLERATED BREAKFAST WELL. NO COMPLAINTS OF NAUSEA OR PAIN AT THIS TIME. PT UP AMBULATING HALLWAYS MULTIPLE TIMES WITH STEADY BALANCED GAIT. PT STATES HE WILL NEED TO DISCHARGE TODAY R/T LEGAL COMMITMENTS FOR TOMORROW 11/04. PROVIDER NOTIFIED OF PT STATUS AND PT REQUEST.
[2019-11-04 11:56] VITALS: BP 114/68
== END 2019-11-04 12:11 | disposition home or self-care (01) | DRG 683 ==
LOC: ER 08:42 → EROBS 12:05 → 4S 18:17
PROVIDERS: Internal Medicine; Student in an Organized Health Care Education/Training Program; ADMIT Hospitalist; ATTEND Hospitalist
DX: N17.9 Acute kidney failure, unspecified (principal); K86.1 Other chronic pancreatitis; E10.65 Type 1 diabetes mellitus with hyperglycemia; E86.0 Dehydration; E10.43 Type 1 diabetes mellitus with diabetic autonomic (poly)neuropathy; K31.84 Gastroparesis; F19.10 Other psychoactive substance abuse, uncomplicated; G89.29 Other chronic pain; N18.3 Chronic kidney disease, stage 3 (moderate); I12.9 Hypertensive chronic kidney disease with stage 1 through stage 4 chronic kidney disease, or unspecified chronic kidney disease; E10.22 Type 1 diabetes mellitus with diabetic chronic kidney disease; R11.2 Nausea with vomiting, unspecified; R00.0 Tachycardia, unspecified; D72.829 Elevated white blood cell count, unspecified; Z88.6 Allergy status to analgesic agent; Z79.4 Long term (current) use of insulin; Z90.49 Acquired absence of other specified parts of digestive tract
CPT/HCPCS: 10195

== ENCOUNTER 2019-12-03 10:46 | Emergency (ER) | payer OTHER ==
[~2019-12-03] VITALS: Ht 172.7 cm; Wt 79.4 kg
[2019-12-03 11:14] LABS: ABSOLUTE NEUTROPHILS 7.6 thou/uL (1.4-8.2); BASOPHILS 0.6 % (0.0-2.0); EOSINOPHILS 0.9 % (0.0-3.0); HEMATOCRIT 33.8 % (42.0-52.0); HEMOGLOBIN 11.8 gm/dL (14.0-18.0); LYMPHOCYTES 17.2 % (24.0-44.0); MCH 31.9 pg (26.0-34.0); MCHC 34.8 g/dL (28.0-37.0); MCV 91.7 fL (80.0-100.0); MONOCYTES 6.1 % (1.0-8.0); PLATELET COUNT 301 thou/uL (150-400); POLYS 75.2 % (36.0-66.0); RBC 3.69 mil/uL (4.50-6.00); WBC 10.2 thou/uL (4.0-11.0)
[2019-12-03] MEDS ORDERED: PROTONIX40 M2 PO (11:16)
[2019-12-03] MEDS ORDERED: REGLAN10 MG PO (11:16)
[2019-12-03 11:26] LABS: CALCIUM 9.4 mg/dL (8.5-10.1); CREATININE 1.5 mg/dL (0.7-1.3)
[2019-12-03 13:18] VITALS: BP 145/93
== END 2019-12-03 13:18 | disposition home or self-care (01) ==
LOC: ER 10:46
PROVIDERS: Emergency Medicine
DX: E10.649 Type 1 diabetes mellitus with hypoglycemia without coma (principal); R11.2 Nausea with vomiting, unspecified; R10.9 Unspecified abdominal pain; E10.40 Type 1 diabetes mellitus with diabetic neuropathy, unspecified; E10.22 Type 1 diabetes mellitus with diabetic chronic kidney disease; I12.9 Hypertensive chronic kidney disease with stage 1 through stage 4 chronic kidney disease, or unspecified chronic kidney disease; N18.3 Chronic kidney disease, stage 3 (moderate); Z90.49 Acquired absence of other specified parts of digestive tract; Z79.899 Other long term (current) drug therapy; Z88.8 Allergy status to other drugs, medicaments and biological substances

== ENCOUNTER 2020-02-14 18:09 | Emergency (ER) | payer OTHER ==
[~2020-02-14] VITALS: Ht 172.7 cm; Wt 74.8 kg
[~2020-02-14 18:09] MED LIST changes: +REGLAN10 MG PO
[2020-02-14 19:09] LABS: ABSOLUTE NEUTROPHILS 9.9 thou/uL (1.4-8.2); BASOPHILS 0.4 % (0.0-2.0); EOSINOPHILS 0.2 % (0.0-3.0); HEMATOCRIT 36.4 % (42.0-52.0); LYMPHOCYTES 15.6 % (24.0-44.0); MCH 30.4 pg (26.0-34.0); MCHC 32.9 g/dL (28.0-37.0); MCV 92.2 fL (80.0-100.0); MONOCYTES 6.3 % (1.0-8.0); PLATELET COUNT 271 thou/uL (150-400); POLYS 77.5 % (36.0-66.0); RBC 3.94 mil/uL (4.50-6.00); RDW 14.8 % (10.5-14.5); WBC 12.8 thou/uL (4.0-11.0)
[2020-02-14 19:19] LABS: CALCIUM 10.3 mg/dL (8.5-10.1); CREATININE 2.7 mg/dL (0.7-1.3)
[2020-02-14 21:14] LABS: CALCIUM 9.4 mg/dL (8.5-10.1); CREATININE 2.3 mg/dL (0.7-1.3); POTASSIUM 4.1 mmol/L (3.5-5.1)
[2020-02-14 22:58] VITALS: BP 168/96
--- NOTE | 2020-02-17 07:39 | EKG ---
[facility] [place] [address] ELECTROCARDIOGRAM REPORT Name: OPAL FITZGERALD VIVIENNE Room #: DEP [facility].Marizol#: [id number] Admission: 02/14/20 Attend Phys: Discharge: 02/14/20 Date of : 88 Report #: [id number] THIS REPORT FOR: cc: JILLIAN - Katie family physician/PCP JILLIAN - No family physician/PCP Eleazar Maki MD [facility] THIS REPORT FOR: //name// [facility] ED Test Date: 2020-02-14 Test Time: 19:18:53 Pat Name: OPAL FITZGERALD Department: Room: Gender: Associate Professor Of Pathology: [facility] : 1990 Requested By: Nigel Ascencio Order Number: [id number] MD: Eleazar Maki Measurements Intervals [place] Rate: 107 P: 84 [place]: 152 QRS: 93 QRSD: 86 T: 2 QT: 344 QTc: 459 Interpretive Statements Sinus tachycardia Borderline right axis deviation Compared to ECG 10/02/2019 16:45:18 No significant change was found Electronically Signed On 02-17-2020 7:39:14 PROTECTION MGR by Eleazar Maki [email or web address] <ELECTRONICALLY SIGNED> By: Eleazar Maki MD, FACC 02/17/20 0739 17 17 Eleazar Maki MD, [facility] /EPI
== END 2020-02-14 22:59 | disposition home or self-care (01) ==
LOC: ER 18:09
PROVIDERS: Emergency Medicine
DX: N17.9 Acute kidney failure, unspecified (principal); R10.13 Epigastric pain; R11.2 Nausea with vomiting, unspecified; E10.22 Type 1 diabetes mellitus with diabetic chronic kidney disease; I12.9 Hypertensive chronic kidney disease with stage 1 through stage 4 chronic kidney disease, or unspecified chronic kidney disease; N18.30 Chronic kidney disease, stage 3 unspecified; E10.40 Type 1 diabetes mellitus with diabetic neuropathy, unspecified; Z90.49 Acquired absence of other specified parts of digestive tract; Z79.899 Other long term (current) drug therapy; Z79.4 Long term (current) use of insulin; Z88.8 Allergy status to other drugs, medicaments and biological substances

== ENCOUNTER 2021-04-17 13:39 | Inpatient (IN) | payer OTHER ==
[~2021-04-17] VITALS: Ht 172.7 cm; Wt 79.4 kg
[2021-04-17 13:57] VITALS: BP 146/103
[2021-04-17 14:16] LABS: HEMATOCRIT 41.4 % (42.0-52.0); HEMOGLOBIN 13.6 gm/dL (14.0-18.0); MCHC 32.9 g/dL (28.0-37.0); MCV 91.2 fL (80.0-100.0); PLATELET COUNT 305 thou/uL (150-400); RBC 4.54 mil/uL (4.50-6.00)
[2021-04-17 14:16] LABS: HCO3 31.9 mmol/L (22.0-26.0); PCO2 VENOUS 41.8 mmHg (41.0-51.0); PO2 VENOUS 51.4 mmHg (35.0-45.0)
[2021-04-17 14:33] LABS: APTT 29.3 Seconds (24.5-32.8); PROTIME 10.9 Seconds (10.5-12.1)
[2021-04-17 15:24] LABS: ABSOLUTE NEUTROPHILS 16.8 thou/uL (1.4-8.2); ATYPICAL LYMPHS 2 %; METAMYELOCYTES 1 %
[2021-04-17 15:45] LABS: CALCIUM 8.5 mg/dL (8.5-10.1); CREATININE 3.7 mg/dL (0.7-1.3); POTASSIUM 3.7 mmol/L (3.5-5.1)
[2021-04-17 15:55] LABS: ALBUMIN 4.1 g/dL (3.4-5.0); MAGNESIUM 2.3 mg/dL (1.8-2.4); PHOSPHORUS 7.3 mg/dL (2.6-4.7); TOTAL BILIRUBIN 0.7 mg/dL (0.2-1.0); TOTAL PROTEIN 8.5 g/dL (6.4-8.2)
[2021-04-17 17:39] LABS: URINE BILIRUBIN NEGATIVE (Negative); URINE BLOOD 2+ (Negative); URINE CLARITY CLEAR; URINE COLOR YELLOW; URINE GLUCOSE-RANDOM* 2+ (Negative); URINE KETONES NEGATIVE (Negative); URINE LEUKOCYTES-REFLEX NEGATIVE (Negative); URINE NITRITE-REFLEX NEGATIVE (Negative); URINE PROTEIN (DIPSTICK) 2+ (Negative); URINE SPECIFIC GRAVITY >= 1.030 (1.005-1.035); URINE UROBILINOGEN 0.2 E.U./dl (0.2-1.0)
[2021-04-17 17:48] LABS: AMP/METHAMP Negative (Negative); BARBITURATES Negative (Negative); BENZODIAZEPINES POSITIVE (Negative); COCAINE Negative (Negative); METHADONE Negative (Negative); OPIATES POSITIVE (Negative); PCP Negative (Negative)
[2021-04-17 17:52] LABS: HYALINE CASTS 0-3 Few /LPF (None Seen)
[2021-04-17 17:53] LABS: FINE GRANULAR CASTS 0-3 Few /LPF (None Seen); URINE RBC 3-10 Few /HPF (NONE SEEN)
[2021-04-17 17:54] LABS: BACTERIA-REFLEX 1-9 Few /HPF (None Seen); CRYSTALS None Seen /LPF (None Seen); SQUAMOUS 0-3 Few /LPF (0-3); URINE WBC-REFLEX 0-5 Rare /HPF (0-5)
--- NOTE | 2021-04-18 02:00 | NUR ---
WAS AT [facility]IXYS AFTER PT BLOOD SUGAR LOW TO GET GLUCOSE TAB TO ADMINISTER. PT HR STARTED ALARMING 147. PT WAS FOUND SITTING IN CHAIR AT SIDE OF BED, PT HAD CLIMBED OVER BEDRAIL. PT WAS DIAPHORETIC, IN TRIPOD POSITION WITH LOUD STRIDORUS BREATHING. PT ABLE TO ANSWER QUESTIONS BY NODDING HEAD. PT PLACED BACK IN BED, DR LYN AT BEDSIDE. PT BREATHING ASSISTED WITH AMBU BAG. 1 AMP D50 ADMINISTERED. AFTER APROX 5 MIN PT BREATHING RETURNED TO NORMAL NO STRIDOR NOTED. PT WAS ABLE TO VERBALIZE AND STATING THAT HE FELT BETTER. BLOOD SUGAR REPEATED X2. KARLI Barfield CAR INSPECTOR NOTIFIED. AT THIS TIME PT AT BASELINE
[2021-04-18 04:00] VITALS: BP 115/87
[2021-04-18 05:18] LABS: CALCIUM 7.9 mg/dL (8.5-10.1); POTASSIUM 3.6 mmol/L (3.5-5.1)
[2021-04-18 05:23] LABS: ALBUMIN 3.4 g/dL (3.4-5.0); CREATININE 2.6 mg/dL (0.7-1.3); PHOSPHORUS 5.7 mg/dL (2.6-4.7)
--- NOTE | 2021-04-18 09:02 | NUR ---
[facility]-[phone]
--- NOTE | 2021-04-18 09:15 | NUR ---
PT CALLED OUT IN ROOM, THIS RN ENTERS AND PATIENT'S HR IS 150, DIAPHORETIC, PT GETTING OUT OF BED, O2 SAT 50%. PT ASKED TO LAY DOWN AND PATIENT BAGGED FOR KATTY 3 MIN, O2 RAISED TO 100% AND HR LOWERED. BLOOD SUGAR CHECKED-224, EKG OBTAINED. PATIENT STATES HE HAS A LOT OF ANXIETY AT THIS TIME. AFTER RELAXING, VITALS BECOME NORMAL AGAIN. DOCTOR PAGED
--- NOTE | 2021-04-18 10:53 | NUR ---
PATIENT HAS ANOTHER EPISODE OF TACHYCARDIA AND HYPOXIA, BAGGED AND QUICKLY VITALS RETURNED TO BASELINE
--- NOTE | 2021-04-18 11:14 | EKG ---
[place] [address] [facility] [place] [address] ELECTROCARDIOGRAM REPORT Name: OPAL FITZGERALD VIVIENNE Room #: 170-2 ADM IN M.R.#: [id number] Admission: 04/17/21 Attend Phys: Primitivo Mcpherson Discharge: Date of : 88 Report #: [id number] [facility] ED Test Date: 2021-04-18 Test Time: 01:41:01 Pat Name: OPAL FITZGERALD Department: Room: 170 2 Gender: M Belly Roller: rafita : 1990 Requested By: Hallie Iglesias Order Number: [id number] MD: Eleazar Maki Measurements Intervals [place] Rate: 102 P: 99 [place]: 143 QRS: 94 QRSD: 97 T: 66 QT: 439 QTc: 573 Interpretive Statements Sinus tachycardia Borderline right axis deviation Nonspecific ST segment abnormality Prolonged QT interval Compared to ECG 02/14/2020 19:18:53 ST segment abnormality is now present Prolonged QT interval now present Electronically Signed On 04-18-2021 11:14:35 SYSTEMS DESIGN ENGINEER by Eleazar Maki [email or web address] <ELECTRONICALLY SIGNED> By: Eleazar Maki MD, [facility] 04/18/21 1114 014 014 Eleazar Maki MD, [facility] /EPI
--- NOTE | 2021-04-18 11:15 | EKG ---
[address] [place] [address] ELECTROCARDIOGRAM REPORT Name: OPAL FITZGERALD VIVIENNE Room #: 170-2 ADM IN M.R.#: [id number] Admission: 04/17/21 Attend Phys: Primitivo Mcpherson Discharge: Date of : 88 Report #: [id number] [facility] ED Test Date: 2021-04-18 Test Time: 09:01:51 Pat Name: OPAL FITZGERALD Department: Room: 170 2 Gender: M Transmission Design Engineer: WARREN : 1990 Requested By: Primitivo Mcpherson Order Number: [id number] MD: Eleazar Maki Measurements Intervals [place] Rate: 107 P: 84 [place]: 128 QRS: 92 QRSD: 93 T: 44 QT: 368 QTc: 491 Interpretive Statements Sinus tachycardia Borderline right axis deviation Nonspecific ST segment abnormality Prolonged QT interval Compared to ECG 04/18/2021 01:41:01 No significant change was found Electronically Signed On 04-18-2021 11:15:25 TARIFF INSPECTOR by Eleazar Maki [email or web address] <ELECTRONICALLY SIGNED> By: Eleazar Maki MD, [facility] 04/18/21 1115 0 0 Eleazar Maki MD, [facility] /EPI
[2021-04-18 16:29] VITALS: BP 123/92
--- NOTE | 2021-04-18 16:51 | NUR ---
PT CALLED THIS RN TO HIS ROOM STATING HE WOULD LIKE TO BE DISCHARGED. PT INFORMED OF RISKS, SUCH WORSENIN SYMPTOMS, DISABILITY AND POSSIBLY , PATIENT VERBALIZES UNDERSTANDING OF ALL RISKS. DR BECK CALLED AND INFORMED. PT LEAVES WITHOUT FURTHER QUESTIONS
[2021-04-18 16:52] VITALS: BP 143/105
[2021-04-19 03:05] LABS: GLYCOHEMOGLOBIN (HGB A1C) 10.1 % (4.8-5.6)
== END 2021-04-18 16:52 | disposition left against medical advice (07) | DRG 683 ==
LOC: ER 13:39 → EROBS 18:22
PROVIDERS: Nurse Practitioner Family; ADMIT Hospitalist; ATTEND Hospitalist
DX: N17.9 Acute kidney failure, unspecified (principal); E87.1 Hypo-osmolality and hyponatremia; N39.0 Urinary tract infection, site not specified; R56.9 Unspecified convulsions; N18.30 Chronic kidney disease, stage 3 unspecified; Z20.822 Contact with and (suspected) exposure to COVID-19; Z53.29 Procedure and treatment not carried out because of patient's decision for other reasons; E86.0 Dehydration; E10.22 Type 1 diabetes mellitus with diabetic chronic kidney disease; I12.9 Hypertensive chronic kidney disease with stage 1 through stage 4 chronic kidney disease, or unspecified chronic kidney disease; E10.65 Type 1 diabetes mellitus with hyperglycemia; Z83.3 Family history of diabetes mellitus; Z79.4 Long term (current) use of insulin; Z88.8 Allergy status to other drugs, medicaments and biological substances; Z82.49 Family history of ischemic heart disease and other diseases of the circulatory system; Z90.49 Acquired absence of other specified parts of digestive tract

== ENCOUNTER 2021-05-03 03:50 | Emergency (ER) | payer OTHER ==
[~2021-05-03] VITALS: Ht 175.3 cm; Wt 81.7 kg
[2021-05-03 04:23] LABS: ABSOLUTE NEUTROPHILS 4.5 thou/uL (1.4-8.2); BASOPHILS 0.6 % (0.0-2.0); EOSINOPHILS 1.3 % (0.0-3.0); HEMATOCRIT 29.2 % (42.0-52.0); HEMOGLOBIN 9.5 gm/dL (14.0-18.0); LYMPHOCYTES 26.5 % (24.0-44.0); MCH 30.8 pg (26.0-34.0); MCHC 32.6 g/dL (28.0-37.0); MCV 94.4 fL (80.0-100.0); MONOCYTES 5.8 % (1.0-8.0); PLATELET COUNT 268 thou/uL (150-400); POLYS 65.8 % (36.0-66.0); RBC 3.09 mil/uL (4.50-6.00); RDW 14.5 % (10.5-14.5); WBC 6.8 thou/uL (4.0-11.0)
[2021-05-03 04:27] LABS: CALCIUM 8.8 mg/dL (8.5-10.1); CREATININE 1.9 mg/dL (0.7-1.3); POTASSIUM 4.4 mmol/L (3.5-5.1)
[2021-05-03 04:33] LABS: ALBUMIN 3.5 g/dL (3.4-5.0); TOTAL BILIRUBIN 0.2 mg/dL (0.2-1.0); TOTAL PROTEIN 6.7 g/dL (6.4-8.2)
[2021-05-03] MEDS ORDERED: ZOFRAN ODT4 MG PO (05:51)
[2021-05-03 06:50] VITALS: BP 160/110
== END 2021-05-03 06:40 | disposition home or self-care (01) ==
LOC: ER 03:50
PROVIDERS: Emergency Medicine
DX: N17.9 Acute kidney failure, unspecified (principal); R10.13 Epigastric pain; K31.84 Gastroparesis; I12.9 Hypertensive chronic kidney disease with stage 1 through stage 4 chronic kidney disease, or unspecified chronic kidney disease; E10.22 Type 1 diabetes mellitus with diabetic chronic kidney disease; N18.30 Chronic kidney disease, stage 3 unspecified; Z90.49 Acquired absence of other specified parts of digestive tract; Z79.899 Other long term (current) drug therapy; Z88.8 Allergy status to other drugs, medicaments and biological substances

== ENCOUNTER 2021-05-30 07:36 | Emergency (ER) | payer OTHER ==
[~2021-05-30] VITALS: Ht 172.7 cm; Wt 74.8 kg
[2021-05-30 08:05] LABS: ABSOLUTE NEUTROPHILS 7.2 thou/uL (1.4-8.2); BASOPHILS 0.7 % (0.0-2.0); EOSINOPHILS 0.8 % (0.0-3.0); HEMATOCRIT 31.6 % (42.0-52.0); HEMOGLOBIN 10.6 gm/dL (14.0-18.0); LYMPHOCYTES 18.3 % (24.0-44.0); MCH 30.7 pg (26.0-34.0); MCHC 33.6 g/dL (28.0-37.0); MCV 91.3 fL (80.0-100.0); MONOCYTES 4.8 % (1.0-8.0); PLATELET COUNT 274 thou/uL (150-400); POLYS 75.4 % (36.0-66.0); RBC 3.47 mil/uL (4.50-6.00); RDW 15.5 % (10.5-14.5); WBC 9.6 thou/uL (4.0-11.0)
[2021-05-30 08:22] LABS: CALCIUM 9.4 mg/dL (8.5-10.1); CREATININE 1.8 mg/dL (0.7-1.3); POTASSIUM 3.7 mmol/L (3.5-5.1)
[2021-05-30 08:28] LABS: ALBUMIN 3.9 g/dL (3.4-5.0); TOTAL BILIRUBIN 0.3 mg/dL (0.2-1.0); TOTAL PROTEIN 7.3 g/dL (6.4-8.2)
[2021-05-30 11:59] VITALS: BP 150/97
== END 2021-05-30 11:58 | disposition home or self-care (01) ==
LOC: ER 07:36
PROVIDERS: Emergency Medicine
DX: R11.15 Cyclical vomiting syndrome unrelated to migraine (principal); I10 Essential (primary) hypertension; E11.9 Type 2 diabetes mellitus without complications; Z88.6 Allergy status to analgesic agent; Z90.49 Acquired absence of other specified parts of digestive tract; Z90.89 Acquired absence of other organs